=== PATIENT | male | born 1970 | race Caucasian/White ===

== ENCOUNTER 2019-03-25 07:20 | Day surgery (SDC) | payer SELFPAY, OTHER ==
[2019-03-22 15:43] LABS: Absolute Lymphocyte Count 1.91 X10^3/uL (0.83-4.51); Absolute Neutrophil Count 4.3 X10^3/uL (2.0-7.7); Basophil# 0.08 X10^3/uL; Basophil% 1.1 % (0-1); Eosinophil# 0.31 X10^3/uL; Eosinophils% 4.3 % (0-5); Hematocrit 42.9 % (40-54); Hemoglobin 14.3 g/dL (13.0-16.5); Lymphocyte # 1.91 X10^3/ul (4.0); Lymphocyte % 26.5 % (19-41); Mean Corp Hgb Conc 33.3 g/dL (32-36); Mean Corpuscular Hgb 31.5 pg (27.0-32.0); Mean Corpuscular Volume 94.5 fL (80-94); Mean Platelet Vol. 10.1 fl (6.2-12.0); Monocyte# 0.64 X10^3/uL; Monocyte% 8.9 % (0-10); NRBC Flagged by Analyzer 0 % (0-5); Neutrophil # 4.26 X10^3/uL (2.7-7.7); Neutrophil % 59.1 % (47-70); Platelet Count 322 K/mm3 (150-450); RBC Distribution Width CV 11.6 % (11.6-14.6); RBC Distribution Width SD 40.2 fl (35.1-43.9); Red Blood Count 4.54 M/mm3 (4.6-6.2); White Blood Count 7.2 K/mm3 (4.4-11.0)
[2019-03-22 15:53] LABS: Prothrombin Time (Protime)PT. 13.4 SECONDS (11.7-14.9)
[2019-03-22 15:54] LABS: Partial Thromboplast Time 29.8 Seconds (24.1-36.2)
[2019-03-22 16:11] LABS: Anion Gap 5 (5-15); BUN 21 mg/dL (7-18); BUN/Creat Ratio 21.6 RATIO (10-20); Calcium,Total 9.3 mg/dL (8.5-10.1); Chloride 108 mmol/L (98-107); Creatinine, Serum 0.97 mg/dL (0.70-1.30); EST Glomerular Filtration Rate 87 mL/min (>60); Est Glom Filt Rate - Afr Amer 106 mL/min (>60); Glucose 95 mg/dL (74-106); Potassium 4.2 mmol/L (3.5-5.1); Sodium Level 142 mmol/L (136-145)
[2019-03-23 08:00] LABS: Thyroid Stim Hormone (TSH) 1.78 uIU/mL (0.358-3.74)
--- NOTE | 2019-03-25 07:30 | RAD_ITS ---
STUDY: X-RAY CHEST REASON FOR EXAM: Male, 48 years old. Preoperative for surgery TECHNIQUE: PA and lateral views of the chest. COMPARISON: None. FINDINGS: The lungs are clear and expanded. There is no demonstrated pleural abnormality. Normal size heart. Normal mediastinum and audelia. Normal visualized pulmonary arteries. Normal visualized aortic arch and descending thoracic aorta. Normal visualized thoracic spine. Normal visualized ribs, clavicles, and shoulders. There is no demonstrated abnormality of the visualized soft tissue structures of the upper abdomen. RAD/Chest PA and Lateral IMPRESSION: No acute cardiopulmonary process. Electronically Signed: Akira Ceja MD ([place]) at 7:53 EST , Service support ,
--- NOTE | 2019-03-25 07:32 | EKG12_ITS ---
Test Reason : PREOP Blood Pressure : / mmHG Vent. Rate : 069 BPM Atrial Rate : 069 BPM P-R Int : 182 ms QRS Dur : 110 ms QT Int : 394 ms P-R-T Axes : 016 -41 -10 degrees QTc Int : 422 ms Poor data quality, interpretation may be adversely affected Normal sinus rhythm Left axis deviation Incomplete left bundle branch block Nonspecific T wave abnormality Abnormal ECG Confirmed by RALF JOHNSON, MILAN ([id number]), clinical editor NICK GASCA ([id number]) on 03/31/2019 1:29:53 PM Referred By: Kofi Cisneros Confirmed By:MILAN ARAMBULA MD
[2019-03-25 08:10] VITALS: BP 110/72; PULSE 70; RESP 14; TEMP 36.8; O2SAT 97; BMI 27.8
[2019-03-25] MEDS: Lactated Ringers 1,000 ML 100 ML IV (08:30)
--- NOTE | 2019-03-25 09:15 | RAD_ITS ---
STUDY: X-RAY - RIGHT CALCANEUS REASON FOR EXAM: Male, 48 years old. Calcaneal fracture, fall out of tree one week ago, fluoroscopic guidance for surgery TECHNIQUE: Dose area product: 3.58 mGycm2 COMPARISON: None. FINDINGS: On initial lateral views, there is a small bony density along the distal, plantar surface of the calcaneus likely correlated patient''s known fracture. There is subsequent resection of this bony fragment on later images. Gross radiographic alignment noted. Expected soft tissue air related to surgery. RAD/Calcaneus min 2 Views IMPRESSION: Fluoroscopic guidance for orthopedic surgery of the calcaneus. Electronically Signed: Akira Ceja MD ([place]) at 11:06 EST , Service support ,
[2019-03-25] MEDS: Cefazolin 2 GM in 0.9% Normal Saline 100 ML IV (09:19)
[2019-03-25 11:17] VITALS: BP 110/72; BP 91/69; PULSE 60; RESP 16; TEMP 36.2; O2SAT 99
--- NOTE | 2019-03-25 11:26 | PCM.DC.ORTHO ---
Discharge Diet: No Restrictions Discharge Activity: May Not Drive, May not drive while taking narcotic pain medications., May Not Shower, Use Walker, Use Crutches Weight Bearing Status: No weight bearing Keep extremity elevated above heart level: Right Leg Call your doctor if your incision/area has: Continuous Slow Oozing, Sudden Increased Bleeding, Increased Pain/ Swelling Call your doctor if you observe: Fever of 101 or Higher, Coldness, Increased Pain, Shortness of breath, Dizziness, Fainting spells, Chest pain, Increased palpitations (irregular heartbeat), Calf discomfort, Uncontrolled pain Suture Line Care: Avoid Pulling/Pushing Cleanse incision/area with: Keep Dressing Clean & Dry Additional Dressing/Incision Instructions:: Keep dressing to right foot and ankle clean, dry, intact. Do not get dressing wet. Do not shower or some submerge in tubs. Sponge bath if necessary but keep the dressing clean and dry. Elevate right lower extremity above level of heart as much as possible until follow-up appointment. Ice behind right knee 20 minutes on 20 minutes off every hour while awake until follow-up appointment. Take medications as prescribed. No walking/standing on the right foot. Use crutches for assistance. Allergies/Adverse Reactions: Allergies No Known Allergies Allergy (Verified 03/24/19 09:10) Medications to take at Discharge No Known/Unobtainable [No Known Home Medications] 10/10/14 Orders to be completed after discharge: Chest PA and Lateral [RAD] Time Frame: 03/25/19, Location: None Selected Primary Care Physician: Brendan Granado DO [Primary Care Provider] - Test Results: Test results from this visit will be discussed in further detail at your follow-up appointment, if applicable. Please Follow Up With: Kofi Cisneros DPM When: In [place] Office on 03/31
--- NOTE | 2019-03-25 11:29 | OP.PCM_ITS ---
Problem List (1) Closed right calcaneal fracture Status: Acute Qualifiers: Encounter type: initial encounter Calcaneus location: body Fracture alignment: displaced Qualified Code(s): S92.011A - Displaced fracture of body of right calcaneus, initial encounter for closed fracture Report of Operation Date of Procedure: 03/25/19 Pre-Operative Diagnosis: Displaced right calcaneal fracture at the level of the calcaneocuboid joint. Post-Operative Diagnosis: Same as preoperative Surgery/Procedure Performed:: Excision of a avulsed calcaneal fracture right calcaneus Description of Surgical Findings:: Consistent with diagnosis. Avulsed calcaneal fracture was comminuted and it was determined that internal fixation would further the comminution and not reduce it properly. He was then determined this time that removal of the fragment would aid in the patient's recovery and lead to a better outcome than internal fixation. loading unit operator crimping: Monica Banda Type of Anesthesia:: Spinal/Supplemental - Popliteal block to the right lower extremity Anesthesiologist: Cody Reeves Special Medications: 2 g Ancef given preoperatively Specimen's removed: None Drains: None Estimated Blood Loss (mL): 25mL Description of Procedure: Pathology: None Anesthesia: Dr. Reeves with a spinal and supplemental in a popliteal block to the right lower extremity giving postoperatively Hemostasis: Pneumatic thigh tourniquet placed at the level of the right thigh at 300 mmHg for 71 minutes Materials: 2-0 Vicryl, 3-0 Monocryl, 3-0 nylon Injectables: none Complications: none Condition: stable Indications: Mr. Barros is a 48-year-old male with no significant past medical history who suffered a fall from a tree stand on March 14. Patient states that as he was getting to his tree stand, one of the steps broke and he fell approximately 18 feet. Patient presented to the emergency department for further evaluation. At that time radiographs and CT scan were performed. CT scan showed a displaced comminuted fracture at the inferior portion of the calcaneus articulating with the calcaneocuboid joint. Patient was then splinted and sent for follow-up. Patient followed up with me in the office on March 17. At that time the CT scan and the radiographs were reviewed with the patient. Due to the displacement of the fracture and its articulation within the calcaneocuboid joint, I discussed with the patient surgical intervention to reduce the deformity. I also discussed conservative therapy including nonweightbearing and a below the knee cast for period of up to 12 weeks. The risks, benefits, possible outcomes, possible complications of the procedure and conservative therapy were discussed with the patient, included but not limited to infection, delayed or nonhealing, DVT, loss of limb, loss of life. Patient stated that he was very active in his lifestyle and wanted to return to activities quicker. Furthermore patient wanted to delay the onset of arthritis. At that time patient was agreeable to surgical intervention. Due to the swelling in his right lower extremity, had the patient follow-up with me on March 24 for an edema check. At that time edema was noted to be significantly reduced and was determined that surgical intervention would proceed on March 25. Operative report: Before the patient was brought to the operating room, all the risks, benefits, possible outcomes, possible complications of the procedure discussed with the patient. All the patient's questions were answered to his satisfaction and all of his concerns were addressed. No guarantees were made as to the outcome of the procedure. Patient understood all aspects of the procedure and consent was then signed with the patient. Patient was then brought to the operating room and placed on the operating table in supine position. At that time, spinal anesthesia was administered by the anesthesiologist. Patient was then placed in a comfortable position and in a supine position. At that time IV sedation was then given to the patient to make the patient comfortable. Next a well-padded pneumatic thigh tourniquet was placed to the level of the right thigh. The right foot, ankle, leg were then scrubbed, prepped, draped in the usual sterile manner. At this time radiographic evaluation was used to determine the level of the calcaneocuboid joint. This was then marked on the patient. Furthermore the inferior and superior borders of the calcaneus were marked and confirmed on radiographic evaluation. Due to the level of the relaxed skin tension lines, it was be determined that an incision will be made starting on the dorsal distal aspect of the calcaneocuboid joint extending inferiorly and posteriorly. At that time the right foot was elevated and exsanguinated Via Esmarch and inflated with a MAC 5 tourniquet was performed to 300 mmHg. Attention was then directed to the lateral aspect of the calcaneal cuboid joint of the right foot. At this time an incision was made with a #15 blade starting on the most dorsal aspect of the calcaneocuboid joint extending inferiorly and posteriorly to the inferior aspect of the calcaneocuboid joint. This incision was deepened utilizing sharp and blunt dissection. Care was taken to retract all vital neural and vascular structures. All bleeders were cauterized and ligated as necessary. At this time the sural nerve was identified and retracted and protected. Next an incision was made in a longitudinal fashion along the peroneal tendon sheaths. At this time the peroneal tendon sheaths were then retracted inferiorly, thus exposing the calcaneocuboid joint and the fracture of the operative site. Visual inspection was then performed of the fracture of the calcaneus. The fracture was noted to be comminuted. Furthermore, the fracture was noted to be contained within the calcaneocuboid joint. Due to the level of this fracture and the comminution noted, it was determined that a compression screw would be difficult to achieve. Furthermore, I was worried that a compression screw would further comminute the fracture. After this was determined, I also believe that placing a plate on the lateral aspect of the calcaneus to hold this fracture and the position would be difficult. I believe that this would have increased to the recovery time of the patient and could have led to less optimal outcome. It was undetermined this time that excision of the avulsion fragment would greatly benefit the patient at this time. The multiple comminuted avulsed fractures were then excised and passed from the operative site. At this time the surgical site was irrigated with copious amounts of normal sterile saline. Next a rongeur along with a bur were then used to smooth the remaining calcaneus. Inspection was then performed of the calcaneocuboid joint and the remaining aspects appeared intact. The surgical site was then irrigated with copious amounts normal sterile saline. Radiographic evaluation was then performed and no remaining avulsed fragments were contained within the surgical site. At this time the periosteal and capsular structures were reapproximated and coapted utilizing 2-0 Vicryl. The tendon sheath of the peroneal tendons was reapproximated and coapted utilizing 2-0 Vicryl. The subcutaneous tissue was reapproximated and coapted utilizing 3-0 Monocryl. The skin was reapproximated coapted using 3-0 nylon in a simple interrupted horizontal mattress fashion. At this time the tourniquet was then released and a prompt hyperemic response noted to the entirety of the right lower extremity. Surgical site was then dressed with Betadine soaked gauze, and a dry sterile dressing consisting of 4 x 4 gauze wrapped with Kerlix. The right foot and ankle were then wrapped with Maxwell bandage. At this time a stockinette was placed over the right lower extremity. Cast padding was wrapped in the metatarsal heads extending proximally to the level just distal to the tibial tuberosity. A posterior splint was fashioned to the right lower extremity and was adhered to the right lower extremity using Maxwell bandages. Care was taken to make sure that the foot was held in a dorsiflexed and everted position to aid in the decrease tension on the surgical site as a posterior splint dried. The patient tolerated the anesthesia and procedure well and was transported to the PACU with vital signs stable and neurovascular status intact to the right lower extremity. At that time the anesthesiologist administered a popliteal block to the right lower extremity. The patient tolerated this procedure well. After period of postoperative monitoring, the patient will be discharged home with written and oral instructions of wound care and follow-up. The surgical dental assistant, the nurse practitioner, was utilized throughout the entire procedure. She helped with patient positioning, holding of limb, holding of retractors. She helped with exposure throughout. She helped with wound closure, bandage application, and cast application. Without surgical dental assistant, the surgical time would have been increased. Surgical outcome could have been less than optimal. - Complications None - Admit VTE Documentation VTE Present on Admission: No
[2019-03-25 11:30] VITALS: BP 109/75; BP 110/72; PULSE 64; RESP 16; O2SAT 100
--- NOTE | 2019-03-25 11:35 | RAD_ITS ---
STUDY: X-RAY - RIGHT FOOT CLINICAL: Male, 48 years old. Status post calcaneal surgery TECHNIQUE: 3 view(s) of the foot. COMPARISON: None. FINDINGS: Splint material noted. Small amount of air adjacent to the anterior and plantar calcaneus correlates to the area of surgery on recent fluoroscopic images. Normal visualized subtalar, talonavicular, calcaneocuboid, tarsal and tarsometatarsal articulations. Normal metatarsi. Normal metatarsophalangeal joint of the great toe. Normal tibial and fibular sesamoid bones. Normal interphalangeal joint of the great toe. Normal phalanges of the great toe. Normal second through fifth metatarsophalangeal joints. Normal interphalangeal joints and phalanges of the lesser toes. No malalignment. RAD/Foot min 3 Views IMPRESSION: Operative changes of the anterior/plantar calcaneus. No malalignment. Electronically Signed: Akira Ceja MD ([place]) at 11:57 EST , Service support ,
[2019-03-25 11:45] VITALS: BP 109/79; BP 110/72; PULSE 62; RESP 16; O2SAT 100
[2019-03-25 12:00] VITALS: BP 103/76; BP 110/72; PULSE 64; RESP 16; TEMP 36.5; O2SAT 100
[2019-03-25 13:31] VITALS: BP 110/72
== END 2019-03-25 13:38 | disposition home or self-care (01) ==
LOC: SDC 07:21 → AC 07:21
PROVIDERS: Family Provider Family Medicine; PCP Family Medicine; Referring Provider Podiatrist Foot & Ankle Surgery; Visit Provider Podiatrist Foot & Ankle Surgery
PROC: (CPT 28300; principal; 2019-03-25 09:00)
DX: S92.011A Displaced fracture of body of right calcaneus, initial encounter for closed fracture (principal); S92.211A Displaced fracture of cuboid bone of right foot, initial encounter for closed fracture; S92.224A Nondisplaced fracture of lateral cuneiform of right foot, initial encounter for closed fracture; Z79.82 Long term (current) use of aspirin; Z79.891 Long term (current) use of opiate analgesic; W17.89XA Other fall from one level to another, initial encounter; Y93.89 Activity, other specified; Y92.89 Other specified places as the place of occurrence of the external cause; Y99.8 Other external cause status
CPT/HCPCS: 28300; 64450; 36415; 71046; 73630; 73650; 76000; 80048; 84443; 85025; 85610; 85730; 93005; J7120; J2405

== ENCOUNTER 2019-04-09 09:47 | Inpatient (IN) | payer OTHER, SELFPAY ==
[2019-04-09] VITALS (11 sets, daily range): BP systolic 90–126; BP diastolic 51–77; PULSE 72–82; RESP 16–18; TEMP 36.1–37.1; O2SAT 94–100; BMI 27.1; BMI 27.2
--- NOTE | 2019-04-09 10:08 | RAD_ITS ---
STUDY: X-RAY - RIGHT FOOT CLINICAL: Male, 48 years old. RECENT SURGERY, INFECTION TECHNIQUE: 3 view(s) of the foot. COMPARISON: 03/25/2019 FINDINGS: Normal talus, calcaneus, and tarsal bones. Normal visualized subtalar, talonavicular, calcaneocuboid, tarsal and tarsometatarsal articulations. Normal metatarsi. Normal metatarsophalangeal joint of the great toe. Normal tibial and fibular sesamoid bones. Normal interphalangeal joint of the great toe. Normal phalanges of the great toe. Normal second through fifth metatarsophalangeal joints. Normal interphalangeal joints and phalanges of the lesser toes. The soft tissue structures are unremarkable. RAD/Foot min 3 Views IMPRESSION: Normal x-ray examination of the foot. Electronically Signed: Kyle Bo MD at 10:44 EST Tel , Service support ,
[2019-04-09 10:39] LABS: Absolute Lymphocyte Count 2.28 X10^3/uL (0.83-4.51); Absolute Neutrophil Count 5.4 X10^3/uL (2.0-7.7); Basophil# 0.08 X10^3/uL; Basophil% 0.9 % (0-1); Eosinophil# 0.52 X10^3/uL; Eosinophils% 5.7 % (0-5); Hematocrit 38.3 % (40-54); Hemoglobin 12.5 g/dL (13.0-16.5); Lymphocyte # 2.28 X10^3/ul (4.0); Lymphocyte % 24.9 % (19-41); Mean Corp Hgb Conc 32.6 g/dL (32-36); Mean Corpuscular Hgb 31.4 pg (27.0-32.0); Mean Corpuscular Volume 96.2 fL (80-94); Mean Platelet Vol. 8.9 fl (6.2-12.0); Monocyte# 0.76 X10^3/uL; Monocyte% 8.3 % (0-10); NRBC Flagged by Analyzer 0 % (0-5); Neutrophil # 5.43 X10^3/uL (2.7-7.7); Neutrophil % 59.4 % (47-70); Platelet Count 441 K/mm3 (150-450); RBC Distribution Width CV 11.5 % (11.6-14.6); RBC Distribution Width SD 40.5 fl (35.1-43.9); Red Blood Count 3.98 M/mm3 (4.6-6.2); White Blood Count 9.1 K/mm3 (4.4-11.0)
[2019-04-09 10:56] LABS: ALB/GLOB Ratio 0.8 RATIO (0.9-2.4); AST(SGOT) 13 U/L (15-37); Alanine Aminotransfer ALT/SGPT 48 U/L (16-61); Albumin, Serum 3.6 g/dL (3.2-5.0); Alkaline Phosphatase 260 U/L (45-117); Anion Gap 5 (5-15); BUN 12 mg/dL (7-18); BUN/Creat Ratio 12.6 RATIO (10-20); Calcium,Total 9.1 mg/dL (8.5-10.1); Chloride 107 mmol/L (98-107); Creatinine, Serum 0.96 mg/dL (0.70-1.30); EST Glomerular Filtration Rate 89 mL/min (>60); Est Glom Filt Rate - Afr Amer 107 mL/min (>60); Estimated Creatinine Clearance 102.16 ml/min; Globulin 4.4 g/dL (2.2-4.2); Glucose 93 mg/dL (74-106); Potassium 4.3 mmol/L (3.5-5.1); Sodium Level 142 mmol/L (136-145)
--- NOTE | 2019-04-09 12:38 | PCM.HP.STD ---
Problem List (1) Postoperative infection Status: Acute Qualifiers: Encounter type: initial encounter Postoperative infection type: deep incisional surgical site Qualified Code(s): T81.42XA - Infection following a procedure, deep incisional surgical site, initial encounter (2) Cellulitis of right foot Status: Acute History of Present Illness Date of Admission: 04/09/19 Chief Complaint: Patient experiencing a postoperative infection of his right foot surgical site status post removal of avulsion fracture of right calcaneus on March 25, 2019. The patient is a 48 year old M with no significant past medical history who suffered a fall from a treehouse on March 14. Patient states that he was hunting at that time and fell out of his tree house. Patient felt immediate pain in his right foot and ankle. Patient went to the emergency department for further evaluation where radiographs and CT scan were taken. Patient was then sent for follow-up. After discussing with the patient, and reviewing the CT scan, I recommended an open reduction with internal fixation of the right calcaneus. During surgical intervention, it was noted that the avulsion fractures were smaller than were noted on CT scan and the avulsion fractures were removed without the placement of internal fixation. Patient subsequently saw me in the office on March 31, for further care. Surgical site was clean, dry and intact with no signs of acute infection. Surgical dressing was changed and patient follow-up with me today in the office. Upon removal of the dressing, there is erythema and edema present. Furthermore purulent drainage was coming from the postoperative wound. To the significant infection, I recommend the patient be admitted to the hospital for IV antibiotics and an immediate incision and drainage by me. Patient is not experiencing fever, chills, nausea, vomiting, shortness of breath, chest pain. [] Past Medical History Allergies No Known Allergies Allergy (Verified 03/24/19 09:10) Home Medications: Ambulatory Orders Medication Instructions Recorded Aspirin [Aspirin, Baby] 81 mg PO DAILY 04/09/19 Surgical History: no surgical history Psychiatric History: No pertinent psych hx Lives: With Family Smoking Status: Never smoker Tobacco Use: Non-smoker Alcohol: None Drugs: None Review of Systems Constitutional: Denies: Chills, Fever, Night Sweats, Malaise, Weakness, Fatigue Eyes: Denies: Blurred vision, Cataracts, Conjunctivae Inflammation, Double vision, Drainage, Eyelid Inflammation, Pain, Redness HEENT: Denies: Difficulty Hearing, Difficulty Swallowing, Head Aches Cardiovascular: Denies: Chest Pain Respiratory: Denies: Cough, Hemoptysis, Shortness of Breath Gastrointestinal: Denies: Abdominal Pain, Constipation, Diarrhea Genitourinary: Denies: Dysuria, Frequency, Hematuria Musculoskeletal: Reports: Foot Pain - right foot pain in area of surgical site Skin: Denies: Dryness Neurological: Denies: Balance problems, Blurred vision Psychiatric: Denies: Anxiety, Depression Endocrine: Denies: Change in Body Habitus, Heat/ Cold Intolerance, Polydipsia, Polyuria VTE Information - Inpt Only VTE Present on Admission: No Patient Problems: Active and Suspected Problems Postoperative infection (Acute) Cellulitis of right foot (Acute) Subjective: Patient denies any acute complaints at this time is overall feeling okay. Patient admits to pain in foot. Objective: Right lower extremity exam: Vascular assessment reveals a palpable dorsalis pedis and posterior tibial pulse, CFT <3 sec x5, Temperature gradient is increased starting at the level of the ankle extending distally to the digits Neuro: gross and protective sensation intact to the right lower extremity Musculoskeletal: Muscle strength is deferred Dermatological: Surgical site on lateral aspect the right foot reveals significant erythema and edema with positive purulent drainage. Surgical site is not well coapted. Positive pain upon palpation. Positive foul odor present. - Physical Exam Vitals/I&O's: Vital Signs Temp Pulse Resp BP Pulse Ox 98.0 F 75 18 113/76 98 04/09/19 12:05 04/09/19 12:05 04/09/19 12:05 04/09/19 12:05 04/09/19 12:05 Oxygen Delivery Method Room Air Weight: 90.9 kg Body Mass Index (BMI) 27.1 General: Alert, Oriented x3, Cooperative, No apparent distress, Well developed, Well nourished HEENT: Atraumatic, PERRLA, EOMI, Normocephalic Oral: Moist Mucosa Neck: Supple, No JVD Lungs: Clear to auscultation, Normal air movement, No rhonchi, No wheeze, No rales Cardiovascular: Regular rate, Regular Rhythm, Normal S1, Normal S2 Abdomen: Bowel Sounds Present, Soft, Non Tender, Non-Distended Extremities: No clubbing, No cyanosis Musculoskeletal: No Muscle Wasting Lymphatic: No Cervical, Supraclavicular, or Inguinal Adenopathy Neurological: Sensory exam intact to light touch and pain Psych/Mental Status: Normal Affect, Appropriate, Alert and oriented to time, place, person, mood and affect Laboratory Results 04/09/19 10:25: WBC 9.1, RBC 3.98 L, Hgb 12.5 L, Hct 38.3 L, MCV 96.2 H, MCH 31.4, MCHC 32.6, RDW Std Deviation 40.5, RDW Coeff of Dona 11.5 L, Plt Count 441, MPV 8.9, Immature Gran % (Auto) 0.800, Neut % (Auto) 59.4, Lymph % (Auto) 24.9, [place] % (Auto) 8.3, Eos % (Auto) 5.7 H, Baso % (Auto) 0.9, Absolute Neuts (auto) 5.4, Absolute Lymphs (auto) 2.28, Nucleated RBC % 0 04/09/19 10:25: Sodium 142, Potassium 4.3, Chloride 107, Carbon Dioxide 30.0, Anion Gap 5, BUN 12, Creatinine 0.96, Estim Creat Clear Calc 102.16, Est GFR (MDRD) Af Amer 107, Est GFR (MDRD) Non-Af 89, BUN/Creatinine Ratio 12.6, Glucose 93, Calcium 9.1, Total Bilirubin 1.00, AST 13 L, ALT 48, Alkaline Phosphatase 260 H, Total Protein 8.0, Albumin 3.6, Globulin 4.4 H, Albumin/Globulin Ratio 0.8 L Current Medications Acetaminophen (Tylenol) 650 mg PO Q4H PRN PRN PRN Reason: HEADACHE/FEVER (T>100F) Hydrocodone Bitart/Acetaminophen ([place] 5mg-325mg) 1 tablet PO Q4H PRN PRN PRN Reason: Pain Score 1-10/10 Docusate Sodium (Colace) 200 mg PO BID PRN PRN PRN Reason: Constipation Enoxaparin Sodium (Lovenox) 40 mg SC DAILY@0600 ALEKSANDR Hydromorphone HCl (Dilaudid Inj) 0.5 mg IV Q2H PRN PRN PRN Reason: Pain Score 6-10/10 Sodium Chloride () 250 mls @ 15 mls/hr IV .[id number] PRN PRN Reason: Saline Flush Piperacillin Sod/Tazobactam (Sod 3.375 gm/ Sodium Chloride) 50 mls @ 12.5 mls/hr IV Q8 ALEKSANDR Ondansetron HCl (Zofran) 4 mg IV Q6H PRN PRN PRN Reason: NAUSEA/VOMITING Sodium Chloride () 10 - 40 ml IV UD PRN PRN Reason: SALINE FLUSH Vancomycin HCl (Vancomycin Hcl) 1 mg IV Q12 COUNTS INCLUDE 234 BEDS AT THE [facility] Assessment/Plan All Active Problems Closed right calcaneal fracture (Acute) Postoperative infection (Acute) Cellulitis of right foot (Acute) Is a 48-year-old male with no significant past medical history who was admitted to [facility] today by me for postoperative infection of his right foot. At this time, I discussed with the patient the severity of the infection is present. I believe the patient would benefit from incision and drainage with a washout of his right foot wound. Patient is agreeable to the surgical intervention. Discussed with the patient that we will perform the surgery today to washout the wound. At that time, I will take wound cultures and possibly place a wound VAC on to the area. I will consult the hospitalist for further medical management. I appreciate the hospitalist attention and help with this matter. I will consult Dr. Posadas from infectious disease for further IV and oral antibiotic management. I appreciate the infectious disease consultation and help with this matter. The patient will likely need several days of IV antibiotics and possible further washouts and debridements pending clinical improvement. I will continue to update accordingly. I appreciate all help in managing and assisting this patient. Code Visit Inpatient E&M: [id number] Init Hosp L2
--- NOTE | 2019-04-09 12:42 | PCM.RX.CS ---
Consult Pharmacy has been consulted to manage selected antiobiotic: Vancomycin Type of Consult: New start Labs: Sodium 142 mmol/L (136-145) 04/09/19 10:25 Potassium 4.3 mmol/L (3.5-5.1) 04/09/19 10:25 Chloride 107 mmol/L (98-107) 04/09/19 10:25 Carbon Dioxide 30.0 mmol/L (21.0-32.0) 04/09/19 10:25 Anion Gap 5 (5-15) 04/09/19 10:25 BUN 12 mg/dL (7-18) 04/09/19 10:25 Creatinine 0.96 mg/dL (0.70-1.30) 04/09/19 10:25 Est GFR (MDRD) Af Amer 107 mL/min (>60) 04/09/19 10:25 Est GFR (MDRD) Non-Af 89 mL/min (>60) 04/09/19 10:25 BUN/Creatinine Ratio 12.6 RATIO (10-20) 04/09/19 10:25 Glucose 93 mg/dL (74-106) 04/09/19 10:25 Weight used for dosin kg Estimated Creatinine Clearance: > 100 Goal Trough: 15-20 mcg/mL Pharmacy Plan for Drug Dosing: Vancomycin 2000mg IV x1 followed by 1000mg IV q8h and trough per policy. Pharmacy Service will continue to monitor and adjust dosing as required. Follow-Up Labs: Trough Vancomycin - 04/10 prior to 4th dose
--- NOTE | 2019-04-09 12:43 | NURSING ---
called report to Marisel in [facility] at this time
[2019-04-09] MEDS: Bupivacaine Mpf 0.5% 30 ML VIAL (13:54)
--- NOTE | 2019-04-09 13:56 | PN.ID_ITS ---
Patient Problems: Active and Suspected Problems Postoperative infection (Acute) Cellulitis of right foot (Acute) - Physical Exam Vitals/I&O's: Vital Signs Temp Pulse Resp BP Pulse Ox 98.0 F 75 18 113/76 98 04/09/19 12:05 04/09/19 12:05 04/09/19 12:05 04/09/19 12:05 04/09/19 12:05 Oxygen Delivery Method Room Air Weight: 90.9 kg Body Mass Index (BMI) 27.1 Laboratory Results 04/09/19 10:25: WBC 9.1, RBC 3.98 L, Hgb 12.5 L, Hct 38.3 L, MCV 96.2 H, MCH 31.4, MCHC 32.6, RDW Std Deviation 40.5, RDW Coeff of Dona 11.5 L, Plt Count 441, MPV 8.9, Immature Gran % (Auto) 0.800, Neut % (Auto) 59.4, Lymph % (Auto) 24.9, [place] % (Auto) 8.3, Eos % (Auto) 5.7 H, Baso % (Auto) 0.9, Absolute Neuts (auto) 5.4, Absolute Lymphs (auto) 2.28, Nucleated RBC % 0 04/09/19 10:25: Sodium 142, Potassium 4.3, Chloride 107, Carbon Dioxide 30.0, Anion Gap 5, BUN 12, Creatinine 0.96, Estim Creat Clear Calc 102.16, Est GFR (MDRD) Af Amer 107, Est GFR (MDRD) Non-Af 89, BUN/Creatinine Ratio 12.6, Glucose 93, Calcium 9.1, Total Bilirubin 1.00, AST 13 L, ALT 48, Alkaline Phosphatase 260 H, Total Protein 8.0, Albumin 3.6, Globulin 4.4 H, Albumin/Globulin Ratio 0.8 L Current Medications Acetaminophen (Tylenol) 650 mg PO Q4H PRN PRN PRN Reason: HEADACHE/FEVER (T>100F) Hydrocodone Bitart/Acetaminophen ([place] 5mg-325mg) 1 tablet PO Q4H PRN PRN PRN Reason: Pain Score 1-10/10 Docusate Sodium (Colace) 200 mg PO BID PRN PRN PRN Reason: Constipation Enoxaparin Sodium (Lovenox) 40 mg SC DAILY@0600 [facility] Hydromorphone HCl (Dilaudid Inj) 0.5 mg IV Q2H PRN PRN PRN Reason: Pain Score 6-10/10 Sodium Chloride () 250 mls @ 15 mls/hr IV .[id number] PRN PRN Reason: Saline Flush Piperacillin Sod/Tazobactam (Sod 3.375 gm/ Sodium Chloride) 50 mls @ 12.5 mls/hr IV Q8 ALEKSANDR Vancomycin HCl 2,000 mg/ (Sodium Chloride) 540 mls @ 250 mls/hr IV X1 ONE Stop: 04/09/19 15:39 Vancomycin IV Pharmacy to Dose (1 ea/ Sodium Chloride) 500 mls @ 250 mls/hr IV X1 PRN; Protocol PRN Reason: Rx to Dose Ondansetron HCl (Zofran) 4 mg IV Q6H PRN PRN PRN Reason: NAUSEA/VOMITING Sodium Chloride () 10 - 40 ml IV UD PRN PRN Reason: SALINE FLUSH Medical Necessity - Tobacco Use Smoking Status: Never smoker Tobacco Use: Non-smoker Route of nutrition/ use of supplements: [] Nutritional Intake: [] IV Site: [] Jensen Catheter: [] - Assessment/Plan Antibiotics: [] Assessment/Plan: [] Active and Suspected Problems Postoperative infection (Acute) Cellulitis of right foot (Acute) Pt gone to OR. D/w Dr. Demarco, agree with empiric vanc/zosyn, will follow results of surgical cxs. Thank you, will do full consult 04/12.
--- NOTE | 2019-04-09 14:39 | OP.PCM_ITS ---
Problem List (1) Postoperative infection Status: Acute Qualifiers: Encounter type: initial encounter Postoperative infection type: deep incisional surgical site Qualified Code(s): T81.42XA - Infection following a procedure, deep incisional surgical site, initial encounter (2) Cellulitis of right foot Status: Acute Report of Operation Date of Procedure: 04/09/19 Pre-Operative Diagnosis: 1..Acute postoperative infection right foot. 2. Right foot cellulitis. 3. Right foot abscess Post-Operative Diagnosis: Same as preoperative Surgery/Procedure Performed:: 1. Right foot incision and drainage of abscess. #2 right foot washout of wound. #3 right foot application of wound VAC Description of Surgical Findings:: Consistent with diagnosis. Approximately 10 cc of purulent drainage was evacuated. After washout, no further purulent drainage evacuated. Underlying tendons and soft tissue were intact with no signs of necrosis. Underlying bone was hard, healthy, pearly white with no signs of active osteonecrosis. Type of Anesthesia:: Local MAC Anesthesiologist: Cody Reeves Special Medications: 1 g vancomycin, 4.5 g Zosyn Specimen's removed: 1. Wound culture of right foot wound for aerobic, anaerobic, acid-fast and fungal organisms. #2 right foot wound culture PCR Drains: Wound VAC placed on right foot at 125 mmHg with adequate seal and suction Estimated Blood Loss (mL): 20 mL Description of Procedure: Anesthesia: IV sedation with a local block given to the right lower extremity consisting of 20 cc of 0.52 Marcaine plain distributed a ankle block fashion Hemostasis anatomic dissection Estimated blood loss: Less than 20 mL Materials: Wound VAC with associated black foam and tape Injectables: None Complications: None Condition: Stable Indications: Mr. Barros is a 48-year-old male with no significant past medical history who suffered a fall out of his tree house the beginning of March. Patient was brought to the emergency department where x-rays and CT scan were taken showing a calcaneus fracture of his right calcaneus. I saw the patient in the office and plan for an open reduction with internal fixation. Upon surgical intervention March 25, 2019, the fracture was not as significant as noted on preoperative imaging, and the avulsion fracture was removed. Patient was having uneventful postoperative course until seen in the office today. Upon removing of the dressing, purulent drainage was noted to be coming from the wound along with significant erythema and edema. I discussed with the patient that due to the significant infection that was present this time, he would benefit benefit from an operative room incision and drainage with washout. Patient was agreeable and patient was sent to [facility] for admission, surgical intervention, and IV antibiotics. Operative report: Before the patient brought to the operating room, the risks, benefits, possible outcomes, possible complications of the procedure discussed with the patient. All the patient questions were answered to his satisfaction and all of his con cerns were addressed. No guarantees were made as to the outcome of the procedure. The patient understood all aspects of the procedure and consent was then signed by the patient. Patient was then brought to the operating room and placed on the operating table in supine position. After timeout, under IV sedation, 20 cc of 0.5 the Marcaine plain was distributed ankle block fashion to the right ankle. Next, the sutures for the skin that were contained within the surgical site were removed in their entirety. The right foot, ankle, leg were then scrubbed, prepped, draped in the usual sterile manner. Attention was then directed to the surgical wound located on the lateral aspect of the right foot. At this time approximately 10 cc of purulent drainage was evacuated. Any necrotic tissue contained within the skin and subcutaneous tissue was sharply debrided out and passed from the operative site. Visual inspection was then performed of the subcutaneous tissues, tendinous and ligamentous structures, and bone. The subcutaneous tissues and the tendons and ligaments appeared healthy with no signs of necrosis. The underlying bone appeared hard, healthy, and pearly white with no signs of osteonecrosis. At this time the surgical site was irrigated with 6 L of normal sterile saline. The right foot and ankle were then scrubbed, prepped, draped again. At this time this the wound was then measured to be 6 cm x 0.7 cm x 1.5 cm. At this time wound culture was taken for aerobic, anaerobic, acid-fast, fungal organisms. Wound culture was also taken for PCR. At this time black foam was cut to appropriate size and was adhered to the wound utilizing the VAC tape. A dorsal foam bridge was placed over the dorsal aspect of the foot with the black foam. Care was taken to make sure the skin was well protected. The wound VAC was then applied and adequate seal and suction was noted at 125 mmHg low continuous. At this time the right foot and ankle were then dressed with a dry sterile dressing consisting of 4 x 4 gauze wrapped with Kerlix. The right foot and ankle were then wrapped with an Maxwell bandage. Neurovascular status was assessed at the end of the procedure and deemed intact to the right lower extremity. The patient tolerated anesthesia procedure well and was transported to the PACU with vital signs stable and neurovascular status intact to the right lower extremity. After period of postoperative monitoring, patient will be transferred back to the general medical floor. At this time patient will continue IV antibiotics. A consult was placed to the hospitalist and infectious disease for further antibiotic management. Patient may need further washouts and surgical intervention pending clinical improvement. Will continue to monitor closely and update accordingly. Grafts/Implants Used: Wound VAC with black foam and associated tape - Admit VTE Documentation VTE Present on Admission: No
[2019-04-09 16:11] LABS: M R Staph aureus DNA By PCR Negative (Negative); Probe Check PASS; Specimen Processing Control PASS; Staph aureus DNA By PCR POSITIVE (Negative)
--- NOTE | 2019-04-09 17:20 | PN_ITS ---
Patient Problems: Active and Suspected Problems Postoperative infection (Acute) Cellulitis of right foot (Acute) Subjective: Patient was seen and examined today, he underwent surgery on his right heel today for debridement of an abscessed area. Patient denies any chronic medical problems, he has no complaints at this time to this examiner of shortness of breath or chest discomfort. Patient's PCR done on his wound today was positive for staph but negative for MRSA. I discussed this with infectious diseases by phone, infectious diseases did not want to change the patient's antibiotic coverage at this time. - Physical Exam Vitals/I&O's: Vital Signs Temp Pulse Resp BP Pulse Ox 97.8 F 78 18 100/51 L 100 04/09/19 15:40 04/09/19 15:40 04/09/19 15:40 04/09/19 15:40 04/09/19 15:40 Oxygen Delivery Method Room Air Weight: 90.9 kg Body Mass Index (BMI) 27.1 Intake and Output for Last 24 Hours 04/07/19 04/08/19 04/09/19 23:59 23:59 23:59 Intake Total 590 / 590 Balance 590 / 590 General: Alert, Oriented x3, Cooperative, No apparent distress, Well developed, Well nourished HEENT: Atraumatic, PERRLA, EOMI, Normocephalic Oral: Moist Mucosa Neck: Supple, No JVD, Trachea Midline, Thyroid Normal Size and Texture Lungs: Clear to auscultation, Normal air movement, No rhonchi, No wheeze, No rales Cardiovascular: Regular rate, Regular Rhythm, Normal S1, Normal S2, No murmurs, PMI Normal, No rub noted Abdomen: Bowel Sounds Present, Soft, Non Tender, Non-Distended Extremities: No clubbing, No cyanosis, Capillary Refill Less than 3 Seconds Skin: No rashes, No breakdown Neurological: Cranial nerves II-XII grossly intact, Neuro grossly intact, Sensory exam intact to light touch and pain Psych/Mental Status: Normal Affect, Appropriate, Alert and oriented to time, place, person, mood and affect Laboratory Results 04/09/19 10:25: WBC 9.1, RBC 3.98 L, Hgb 12.5 L, Hct 38.3 L, MCV 96.2 H, MCH 31.4, MCHC 32.6, RDW Std Deviation 40.5, RDW Coeff of Dona 11.5 L, Plt Count 441, MPV 8.9, Immature Gran % (Auto) 0.800, Neut % (Auto) 59.4, Lymph % (Auto) 24.9, [place] % (Auto) 8.3, Eos % (Auto) 5.7 H, Baso % (Auto) 0.9, Absolute Neuts (auto) 5.4, Absolute Lymphs (auto) 2.28, Nucleated RBC % 0 04/09/19 10:25: Sodium 142, Potassium 4.3, Chloride 107, Carbon Dioxide 30.0, Anion Gap 5, BUN 12, Creatinine 0.96, Estim Creat Clear Calc 102.16, Est GFR (MDRD) Af Amer 107, Est GFR (MDRD) Non-Af 89, BUN/Creatinine Ratio 12.6, Glucose 93, Calcium 9.1, Total Bilirubin 1.00, AST 13 L, ALT 48, Alkaline Phosphatase 260 H, Total Protein 8.0, Albumin 3.6, Globulin 4.4 H, Albumin/Globulin Ratio 0.8 L 04/09/19 : S.aureus Protein A PCR POSITIVE H, MRSA (PCR) Negative Current Medications Acetaminophen (Tylenol) 650 mg PO Q4H PRN PRN PRN Reason: HEADACHE/FEVER (T>100F) Hydrocodone Bitart/Acetaminophen ([place] 5mg-325mg) 1 tablet PO Q4H PRN PRN PRN Reason: Pain Score 1-10/10 Docusate Sodium (Colace) 200 mg PO BID PRN PRN PRN Reason: Constipation Enoxaparin Sodium (Lovenox) 40 mg SC DAILY@0600 [facility] Hydromorphone HCl (Dilaudid Inj) 0.5 mg IV Q2H PRN PRN PRN Reason: Pain Score 6-10/10 Sodium Chloride () 250 mls @ 15 mls/hr IV .[id number] PRN PRN Reason: Saline Flush Piperacillin Sod/Tazobactam (Sod 3.375 gm/ Sodium Chloride) 50 mls @ 12.5 mls/hr IV Q8 [facility] Last Infusion: 04/09/19 13:49 Dose: Infused Documented by: Vancomycin IV Pharmacy to Dose (1 ea/ Sodium Chloride) 500 mls @ 250 mls/hr IV X1 PRN; Protocol PRN Reason: Rx to Dose Vancomycin HCl (Vancomycin) 1,000 mg in 200 mls @ 200 mls/hr IV Q8H ALEKSANDR Ondansetron HCl (Zofran) 4 mg IV Q6H PRN PRN PRN Reason: NAUSEA/VOMITING Sodium Chloride () 10 - 40 ml IV UD PRN PRN Reason: SALINE FLUSH Medical Necessity - Tobacco Use Smoking Status: Never smoker Tobacco Use: Non-smoker Assessment/Plan All Active Problems Closed right calcaneal fracture (Acute) Postoperative infection (Acute) Cellulitis of right foot (Acute) #1 cellulitis and abscess formation right heel/foot-probably secondary to methicillin sensitive staph aureus-continue present coverage with vancomycin per infectious diseases, patient will need to be seen by PT and OT, patient will need a wound VAC according to documentation by podiatry #2 status post fracture of right calcaneus #3 elevated alkaline phosphatase-etiology unclear, this will need to be rechecked in the near future Code Visit Inpatient E&M: 72016 Subs Hosp L2
--- NOTE | 2019-04-09 18:23 | NURSING ---
[employer] called in regards to wound vac placement. order number [id number].
[2019-04-09] MEDS: HYDROcodone Bitartrate/Apap 5/325 Tablet PO ×2 (18:30→22:30)
[2019-04-09] MEDS: Vancomycin IV 1,000 MG/200 ML BAG 200 MG IV (21:20)
[2019-04-10] MEDS: Acetaminophen 325 MG Tablet 650 MG PO (00:23)
[2019-04-10 03:03] VITALS: BP 107/65; PULSE 75; RESP 16; TEMP 36.9; O2SAT 95
[2019-04-10] MEDS: HYDROcodone Bitartrate/Apap 5/325 Tablet PO ×5 (03:09→22:40)
[2019-04-10] MEDS: Vancomycin IV 1,000 MG/200 ML BAG 200 MG IV ×3 (05:00→21:28)
[2019-04-10] MEDS: Enoxaparin 40 MG/0.4 ML Syringe SC (05:05)
[2019-04-10 08:03] VITALS: BP 121/83; PULSE 66; RESP 18; TEMP 37; O2SAT 99
--- NOTE | 2019-04-10 10:25 | CM.UR ---
Met briefly with patient face to face along with several family members. States when discharged after initial surgery he was able to function around the home with assistance. Denies any needs for assistance. Confirmed his pharmacy and PCP per his demographics. Discussed wound vac. patient did not believe that he was going home with wound vac. Explained usually if applied they do plan on sending home with it. explained that it gets changed 3x per week and we can send nurse to home to change it. Patient states he has no electricity so how are they going to keep it charged/running. Explained we can alert physician and see if there is alternatives. States he will talk to the foot doctor more when he comes in to day. Alerted BILL Andrademeteorologist in charge nurse to patient's concern. Tasneem Vidal RN, CCM.
--- NOTE | 2019-04-10 12:50 | PCM.PN.ORT ---
Patient Problems: Active and Suspected Problems Postoperative infection (Acute) Cellulitis of right foot (Acute) Subjective: Patient seen at bedside resting comfortably. Patient admits to improved pain of his right foot. Patient states that overnight, he was experiencing increased pain but it is now controlled by the pain medications. Patient denies any other acute events overnight. Nursing staff does not report any acute events overnight. Patient denies fever, chills, nausea, vomiting, shortness of breath, chest pain. is present at bedside during entire encounter. Objective: Right lower extremity exam: Dressing is clean, dry, intact to the right lower extremity with no evidence of strikethrough noted. Wound VAC is working with adequate seal and suction noted at 125 mmHg low continuous. Less than 50 mL of sanguinous drainage present in the wound VAC. Capillary fill time is less than 3 seconds to all digits. Patient is able to move all digits freely without pain. Light sensation is intact to the digits of the right foot. - Physical Exam Vitals/I&O's: Vital Signs Temp Pulse Resp BP Pulse Ox 98.6 F 66 18 121/83 H 99 04/10/19 08:03 04/10/19 08:03 04/10/19 08:03 04/10/19 08:03 04/10/19 08:03 Oxygen Delivery Method Room Air Weight: 90.9 kg Body Mass Index (BMI) 27.1 Intake and Output for Last 24 Hours 04/08/19 04/09/19 04/10/19 23:59 23:59 23:59 Intake Total 1390 / 1890 1660.25 / 1660.25 Output Total 750 / 750 Balance 1390 / 1890 910.25 / 910.25 General: Alert, Oriented x3, Cooperative, No apparent distress HEENT: Atraumatic, PERRLA Oral: Moist Mucosa Neck: Supple, No JVD Lungs: Clear to auscultation, Normal air movement, No rhonchi, No wheeze, No rales Cardiovascular: Regular rate, Regular Rhythm, Normal S1, Normal S2 Abdomen: Bowel Sounds Present, Soft, Non Tender Extremities: Capillary Refill Less than 3 Seconds, No Calf Tenderness Musculoskeletal: Tenderness - on palpation to right foot Neurological: Motor Exam 5/5 strength throughout, Sensory exam intact to light touch and pain Psych/Mental Status: Normal Affect, Alert and oriented to time, place, person, mood and affect Microbiology Past 72 Hours 04/09/19 Unknown Biopsy - Ankle Wound Culture - Preliminary Staphylococcus species Laboratory Results 04/09/19 : S.aureus Protein A PCR POSITIVE H, MRSA (PCR) Negative Current Medications Acetaminophen (Tylenol) 650 mg PO Q4H PRN PRN PRN Reason: HEADACHE/FEVER (T>100F) Last Admin: 04/10/19 00:23 Dose: 650 mg Documented by: Hydrocodone Bitart/Acetaminophen ([place] 5mg-325mg) 1 tablet PO Q4H PRN PRN PRN Reason: Pain Score 1-10/10 Last Admin: 04/10/19 12:06 Dose: 1 tablet Documented by: Docusate Sodium (Colace) 200 mg PO BID PRN PRN PRN Reason: Constipation Enoxaparin Sodium (Lovenox) 40 mg SC DAILY@0600 [facility] Last Admin: 04/10/19 05:05 Dose: 40 mg Documented by: Hydromorphone HCl (Dilaudid Inj) 0.5 mg IV Q2H PRN PRN PRN Reason: Pain Score 6-10/10 Sodium Chloride () 250 mls @ 15 mls/hr IV .[id number] PRN PRN Reason: Saline Flush Last Infusion: 04/10/19 06:10 Dose: 0 mls/hr Documented by: Piperacillin Sod/Tazobactam (Sod 3.375 gm/ Sodium Chloride) 50 mls @ 12.5 mls/hr IV Q8 [facility] Last Infusion: 04/10/19 10:15 Dose: Infused Documented by: Vancomycin IV Pharmacy to Dose (1 ea/ Sodium Chloride) 500 mls @ 250 mls/hr IV X1 PRN; Protocol PRN Reason: Rx to Dose Vancomycin HCl (Vancomycin) 1,000 mg in 200 mls @ 200 mls/hr IV Q8H [facility] Last Infusion: 04/10/19 06:00 Dose: Infused Documented by: Ondansetron HCl (Zofran) 4 mg IV Q6H PRN PRN PRN Reason: NAUSEA/VOMITING Sodium Chloride () 10 - 40 ml IV UD PRN PRN Reason: SALINE FLUSH Medical Necessity - Tobacco Use Smoking Status: Never smoker Tobacco Use: Non-smoker Assessment/Plan All Active Problems Closed right calcaneal fracture (Acute) Postoperative infection (Acute) Cellulitis of right foot (Acute) There is a 48-year-old male who is 1 day status post incision and drainage of right foot abscess secondary to postoperative infection. At this time a full discussion was had with the patient and his about his current clinical condition. I discussed with the patient that would like to keep the wound VAC intact until April 12. At that time, I will remove the wound VAC and observe the wound. If the wound appears healthy with no further signs of infection, I would like to take the patient back for delayed primary closure of the wound. If the wound still appears infectious in nature, I will recommend a possible graft placement on the wound in the operating room vs. continuation of the wound VAC as an outpatient. I also discussed with the patient that a graft and closure of the wound can be performed as an outpatient. The patient displayed verbal understanding and is agreeable to any treatment plan that we decide is necessary. I discussed with the patient that there is a possibility that we may need to have the wound VAC used on an outpatient basis. Patient is agreeable to this if necessary. We are awaiting the culture results that were taken the operating room from yesterday. At this time patient is to continue on broad-spectrum IV antibiotics. I appreciate Dr. Denney's help and assistance in medical management of this patient. Dr. Posadas from Infectious Disease has been consulted and will see the patient on April 12 for further antibiotic coverage. Patient to continue nonweightbearing to the right lower extremity. DVT prophylaxis to be continued. Patient displayed verbal understanding to all written and oral instructions at this time. Patient is agreeable to the current treatment plan at this time. All of his questions were answered to his satisfaction and all of his concerns were addressed. We will continue to follow closely and update accordingly. I appreciate all help and assistance in managing this patient. Code Visit Inpatient E&M: 73484 Subs Hosp L2
[2019-04-10 15:00] VITALS: BP 116/76; PULSE 74; RESP 18; TEMP 37.1; O2SAT 94
--- NOTE | 2019-04-10 16:04 | PCM.PROGNOTE ---
Patient Problems: Active and Suspected Problems Postoperative infection (Acute) Cellulitis of right foot (Acute) Subjective: Patient was seen and examined today, he remains afebrile, wound cultures growing out staph species. He states he had quite a bit of wound pain last night but it is better today. - Physical Exam Vitals/I&O's: Vital Signs Temp Pulse Resp BP Pulse Ox 98.7 F 74 18 116/76 94 04/10/19 15:00 04/10/19 15:00 04/10/19 15:00 04/10/19 15:00 04/10/19 15:00 Oxygen Delivery Method Room Air Weight: 90.9 kg Body Mass Index (BMI) 27.1 Intake and Output for Last 24 Hours 04/08/19 04/09/19 04/10/19 23:59 23:59 23:59 Intake Total 1390 / 1890 1860.25 / 1860.25 Output Total 750 / 750 Balance 1390 / 1890 1110.25 / 1110.25 General: Alert, Oriented x3, Cooperative, No apparent distress, Well developed HEENT: Atraumatic, PERRLA, EOMI, Normocephalic Oral: Moist Mucosa Neck: Supple, Trachea Midline, Thyroid Normal Size and Texture Lungs: Clear to auscultation, Normal air movement, No rhonchi, No wheeze, No rales Cardiovascular: Regular rate, Regular Rhythm, Normal S1, Normal S2, No murmurs, PMI Normal, No rub noted, No Gallop Abdomen: Bowel Sounds Present, Soft, Non Tender, Non-Distended Extremities: No clubbing, No cyanosis, Capillary Refill Less than 3 Seconds Skin: No rashes Neurological: Cranial nerves II-XII grossly intact, Neuro grossly intact, Sensory exam intact to light touch and pain Psych/Mental Status: Normal Affect, Appropriate, Alert and oriented to time, place, person, mood and affect Microbiology Past 72 Hours 04/09/19 Unknown Biopsy - Ankle Gram Stain - Final 04/09/19 Unknown Biopsy - Ankle Wound Culture - Preliminary Staphylococcus species Laboratory Results 04/09/19 : S.aureus Protein A PCR POSITIVE H, MRSA (PCR) Negative Current Medications Acetaminophen (Tylenol) 650 mg PO Q4H PRN PRN PRN Reason: HEADACHE/FEVER (T>100F) Last Admin: 04/10/19 00:23 Dose: 650 mg Documented by: Hydrocodone Bitart/Acetaminophen ([place] 5mg-325mg) 1 tablet PO Q4H PRN PRN PRN Reason: Pain Score 1-10/10 Last Admin: 04/10/19 12:06 Dose: 1 tablet Documented by: Docusate Sodium (Colace) 200 mg PO BID PRN PRN PRN Reason: Constipation Enoxaparin Sodium (Lovenox) 40 mg SC DAILY@0600 [facility] Last Admin: 04/10/19 05:05 Dose: 40 mg Documented by: Hydromorphone HCl (Dilaudid Inj) 0.5 mg IV Q2H PRN PRN PRN Reason: Pain Score 6-10/10 Sodium Chloride () 250 mls @ 15 mls/hr IV .[id number] PRN PRN Reason: Saline Flush Last Infusion: 04/10/19 06:10 Dose: 0 mls/hr Documented by: Piperacillin Sod/Tazobactam (Sod 3.375 gm/ Sodium Chloride) 50 mls @ 12.5 mls/hr IV Q8 [facility] Last Admin: 04/10/19 15:04 Dose: 12.5 mls/hr Documented by: Vancomycin IV Pharmacy to Dose (1 ea/ Sodium Chloride) 500 mls @ 250 mls/hr IV X1 PRN; Protocol PRN Reason: Rx to Dose Vancomycin HCl (Vancomycin) 1,000 mg in 200 mls @ 200 mls/hr IV Q8H [facility] Last Infusion: 04/10/19 14:50 Dose: Infused Documented by: Ondansetron HCl (Zofran) 4 mg IV Q6H PRN PRN PRN Reason: NAUSEA/VOMITING Sodium Chloride () 10 - 40 ml IV UD PRN PRN Reason: SALINE FLUSH Medical Necessity - Tobacco Use Smoking Status: Never smoker Tobacco Use: Non-smoker Assessment/Plan All Active Problems Closed right calcaneal fracture (Acute) Postoperative infection (Acute) Cellulitis of right foot (Acute) #1 cellulitis and abscess formation right heel/foot-probably secondary to methicillin sensitive staph aureus-continue present coverage with vancomycin per infectious diseases, patient will need to be seen by PT and OT, patient currently has a wound VAC on his right foot, it is unknown whether he will need to go home with this or whether it could be discontinued prior to his discharge. I have reviewed podiatry's note from today and it appears that the plan is for the patient to have primary closure attempted Friday if it appears possible. #2 status post fracture of right calcaneus #3 elevated alkaline phosphatase-etiology unclear, this will need to be rechecked in the near future Code Visit Inpatient E&M: 32915 Subs Hosp L2
[2019-04-10] MEDS: HYDROmorphone 0.5 MG/0.5 ML SYRINGE IV ×2 (21:28→23:39)
[2019-04-10 21:35] VITALS: BP 115/78; PULSE 73; RESP 16; TEMP 37.6; O2SAT 95
[2019-04-10 21:48] LABS: Vancomycin, Trough Level 17.3 ug/mL (5.0-15.0)
--- NOTE | 2019-04-10 23:34 | PCM.RX.CS ---
Consult Pharmacy has been consulted to manage selected antiobiotic: Vancomycin Type of Consult: Follow-up Suspected Infection: Skin/Soft tissue Prior Doses of Antibiotics Received/Current Regimen: Medications Vancomycin HCl (Vancomycin) 1,000 mg in 200 mls @ 200 mls/hr IV Q8H [facility] Last Admin: 04/10/19 22:40 Dose: Infused Labs: Sodium 142 mmol/L (136-145) 04/09/19 10:25 Potassium 4.3 mmol/L (3.5-5.1) 04/09/19 10:25 Chloride 107 mmol/L (98-107) 04/09/19 10:25 Carbon Dioxide 30.0 mmol/L (21.0-32.0) 04/09/19 10:25 Anion Gap 5 (5-15) 04/09/19 10:25 BUN 12 mg/dL (7-18) 04/09/19 10:25 Creatinine 0.96 mg/dL (0.70-1.30) 04/09/19 10:25 Est GFR (MDRD) Af Amer 107 mL/min (>60) 04/09/19 10:25 Est GFR (MDRD) Non-Af 89 mL/min (>60) 04/09/19 10:25 BUN/Creatinine Ratio 12.6 RATIO (10-20) 04/09/19 10:25 Glucose 93 mg/dL (74-106) 04/09/19 10:25 Vancomycin Trough 17.3 ug/mL (5.0-15.0) H 04/10/19 21:15 Microbiology: Microbiology 04/09/19 Unknown Biopsy - Ankle Gram Stain - Final 04/09/19 Unknown Biopsy - Ankle Wound Culture - Preliminary Staphylococcus species Weight used for dosin kg Estimated Creatinine Clearance: 102 Goal Trough: 15-20 mcg/mL Pharmacy Plan for Drug Dosing: Trough level of 17.3 was within target range of 15-20. Will continue same dosing and re-draw trough in 4 days. Pharmacy Service will continue to monitor and adjust dosing as required. Follow-Up Labs: Trough Vancomycin Labs to be done on [date and time ordered]: 04/14/19 @2343
[2019-04-11] MEDS: Acetaminophen 325 MG Tablet 650 MG PO (02:06)
[2019-04-11 02:13] VITALS: BP 111/74; PULSE 60; RESP 16; TEMP 36.5; O2SAT 95
[2019-04-11] MEDS: HYDROcodone Bitartrate/Apap 5/325 Tablet PO ×5 (03:29→20:40)
[2019-04-11] MEDS: HYDROmorphone 0.5 MG/0.5 ML SYRINGE IV ×2 (05:25→09:13)
[2019-04-11] MEDS: 0.9% Saline Lock 10 ML Syringe IV ×2 (05:25→19:25)
[2019-04-11] MEDS: Vancomycin IV 1,000 MG/200 ML BAG 200 MG IV (05:26)
[2019-04-11] MEDS: Enoxaparin 40 MG/0.4 ML Syringe SC (05:36)
[2019-04-11 06:21] LABS: Absolute Lymphocyte Count 2.46 X10^3/uL (0.83-4.51); Absolute Neutrophil Count 4.5 X10^3/uL (2.0-7.7); Basophil# 0.07 X10^3/uL; Basophil% 0.8 % (0-1); Eosinophil# 0.66 X10^3/uL; Eosinophils% 7.7 % (0-5); Hematocrit 34.4 % (40-54); Hemoglobin 11.6 g/dL (13.0-16.5); Lymphocyte # 2.46 X10^3/ul (4.0); Lymphocyte % 28.8 % (19-41); Mean Corp Hgb Conc 33.7 g/dL (32-36); Mean Corpuscular Hgb 32.3 pg (27.0-32.0); Mean Corpuscular Volume 95.8 fL (80-94); Mean Platelet Vol. 9.2 fl (6.2-12.0); Monocyte% 9.4 % (0-10); NRBC Flagged by Analyzer 0 % (0-5); Neutrophil % 52.7 % (47-70); Platelet Count 390 K/mm3 (150-450); RBC Distribution Width CV 11.5 % (11.6-14.6); RBC Distribution Width SD 40.5 fl (35.1-43.9); Red Blood Count 3.59 M/mm3 (4.6-6.2); White Blood Count 8.5 K/mm3 (4.4-11.0)
[2019-04-11 06:29] LABS: Erythrocyte Sedimentation Rate 41 mm/hr (0-15)
[2019-04-11 06:38] LABS: ALB/GLOB Ratio 0.8 RATIO (0.9-2.4); AST(SGOT) 17 U/L (15-37); Alanine Aminotransfer ALT/SGPT 40 U/L (16-61); Albumin, Serum 3.2 g/dL (3.2-5.0); Alkaline Phosphatase 204 U/L (45-117); Anion Gap 3 (5-15); BUN 12 mg/dL (7-18); BUN/Creat Ratio 11.3 RATIO (10-20); Calcium,Total 8.7 mg/dL (8.5-10.1); Chloride 106 mmol/L (98-107); Creatinine, Serum 1.06 mg/dL (0.70-1.30); EST Glomerular Filtration Rate 79 mL/min (>60); Est Glom Filt Rate - Afr Amer 95 mL/min (>60); Estimated Creatinine Clearance 92.53 ml/min; Globulin 4.1 g/dL (2.2-4.2); Glucose 93 mg/dL (74-106); Protein, Total 7.3 g/dL (6.4-8.2); Sodium Level 140 mmol/L (136-145)
[2019-04-11 07:44] VITALS: BP 96/61; PULSE 69; RESP 18; TEMP 36.6; O2SAT 94
--- NOTE | 2019-04-11 12:48 | PN.ORTHO_ITS ---
Patient Problems: Active and Suspected Problems Postoperative infection (Acute) Cellulitis of right foot (Acute) Subjective: Patient seen at bedside resting comfortably. Patient admits to improved pain of his right foot. Patient states that overnight, he was experiencing increased pain. The hospitalist has increased his pain medications and he is feeling better. Patient denies any other acute events overnight. Nursing staff denies any other acute events overnight. Patient denies fever, chills, nausea, vomiting, shortness of breath, chest pain. is present at bedside during entire encounter. Objective: Right lower extremity exam: Dressing is clean, dry, intact to the right lower extremity with no evidence of strikethrough noted. Wound VAC is working with adequate seal and suction noted at 125 mmHg low continuous. Less than 50 mL of sanguinous drainage present in the wound VAC. Capillary fill time is less than 3 seconds to all digits. Patient is able to move all digits freely without pain. Light sensation is intact to the digits of the right foot. - Physical Exam Vitals/I&O's: Vital Signs Temp Pulse Resp BP Pulse Ox 97.8 F 69 18 96/61 94 04/11/19 07:44 04/11/19 07:44 04/11/19 07:44 04/11/19 07:44 04/11/19 07:44 Oxygen Delivery Method Room Air Weight: 90.9 kg Body Mass Index (BMI) 27.1 Intake and Output for Last 24 Hours 04/09/19 04/10/19 04/11/19 23:59 23:59 23:59 Intake Total 1390 / 1890 2506.25 / 3106.25 2101.25 / 2101.25 Output Total 750 / 750 500 / 500 Balance 1390 / 1890 1756.25 / 2356.25 1601.25 / 1601.25 General: Alert, Oriented x3, Cooperative, No apparent distress HEENT: Atraumatic Neck: Supple, No JVD Lungs: Clear to auscultation, Normal air movement, No rhonchi, No wheeze Cardiovascular: Regular rate, Regular Rhythm, Normal S1, Normal S2 Abdomen: Bowel Sounds Present, Soft, Non Tender, Non-Distended Extremities: Capillary Refill Less than 3 Seconds Musculoskeletal: Tenderness - upon palpation of right foot Neurological: Sensory exam intact to light touch and pain Psych/Mental Status: Alert and oriented to time, place, person, mood and affect Microbiology Past 72 Hours 04/09/19 Unknown Biopsy - Ankle Gram Stain - Final 04/09/19 Unknown Biopsy - Ankle Wound Culture - Final Staphylococcus aureus Laboratory Results 04/10/19 21:15: Vancomycin Trough 17.3 H 04/11/19 05:18: WBC 8.5, RBC 3.59 L, Hgb 11.6 L, Hct 34.4 L, MCV 95.8 H, MCH 32.3 H, MCHC 33.7, RDW Std Deviation 40.5, RDW Coeff of Dona 11.5 L, Plt Count 390, MPV 9.2, Immature Gran % (Auto) 0.600, Neut % (Auto) 52.7, Lymph % (Auto) 28.8, [place] % (Auto) 9.4, Eos % (Auto) 7.7 H, Baso % (Auto) 0.8, Absolute Neuts (auto) 4.5, Absolute Lymphs (auto) 2.46, Nucleated RBC % 0, ESR 41 H 04/11/19 05:18: Sodium 140, Potassium 4.0, Chloride 106, Carbon Dioxide 31.0, Anion Gap 3 L, BUN 12, Creatinine 1.06, Estim Creat Clear Calc 92.53, Est GFR (MDRD) Af Amer 95, Est GFR (MDRD) Non-Af 79, BUN/Creatinine Ratio 11.3, Glucose 93, Calcium 8.7, Total Bilirubin 0.80, AST 17, ALT 40, Alkaline Phosphatase 204 H, C-React Prot Ext Range 17.10 H, Total Protein 7.3, Albumin 3.2, Globulin 4.1, Albumin/Globulin Ratio 0.8 L Current Medications Acetaminophen (Tylenol) 650 mg PO Q4H PRN PRN PRN Reason: HEADACHE/FEVER (T>100F) Last Admin: 04/11/19 02:06 Dose: 650 mg Documented by: Hydrocodone Bitart/Acetaminophen ([place] 5mg-325mg) 1 - 2 tablet PO Q4H PRN PRN PRN Reason: Pain Score 1-10/10 Last Admin: 04/11/19 11:41 Dose: 2 tablet Documented by: Docusate Sodium (Colace) 200 mg PO BID PRN PRN PRN Reason: Constipation Enoxaparin Sodium (Lovenox) 40 mg SC DAILY@0600 [facility] Last Admin: 04/11/19 05:36 Dose: 40 mg Documented by: Hydromorphone HCl (Dilaudid Inj) 1 - 1.5 mg IV Q2H PRN PRN PRN Reason: Pain Score 6-10/10 Sodium Chloride () 250 mls @ 15 mls/hr IV .[id number] PRN PRN Reason: Saline Flush Last Infusion: 04/11/19 11:16 Dose: 15 mls/hr Documented by: Piperacillin Sod/Tazobactam (Sod 3.375 gm/ Sodium Chloride) 50 mls @ 12.5 mls/hr IV Q8 [facility] Last Infusion: 04/11/19 10:40 Dose: Infused Documented by: Vancomycin IV Pharmacy to Dose (1 ea/ Sodium Chloride) 500 mls @ 250 mls/hr IV X1 PRN; Protocol PRN Reason: Rx to Dose Vancomycin HCl (Vancomycin) 1,000 mg in 200 mls @ 200 mls/hr IV Q8H [facility] Last Infusion: 04/11/19 06:37 Dose: Infused Documented by: Ondansetron HCl (Zofran) 4 mg IV Q6H PRN PRN PRN Reason: NAUSEA/VOMITING Sodium Chloride () 10 - 40 ml IV UD PRN PRN Reason: SALINE FLUSH Last Admin: 04/11/19 05:25 Dose: 10 ml Documented by: Medical Necessity - Tobacco Use Smoking Status: Never smoker Tobacco Use: Non-smoker Assessment/Plan All Active Problems Closed right calcaneal fracture (Acute) Postoperative infection (Acute) Cellulitis of right foot (Acute) There is a 48-year-old male who is 2 days status post incision and drainage of right foot abscess secondary to postoperative infection. At this time a full discussion was had with the patient and his about his current clinical condition. I discussed with the patient that would like to keep the wound VAC intact until tomorrow, April 12. At that time, I will remove the wound VAC and observe the wound. If the wound appears healthy with no further signs of infection, I would like to take the patient back for delayed primary closure of the wound on the night of April 12. If the wound still appears infectious in nature, I will recommend a possible graft placement on the wound in the operating room on 04/12 vs. continuation of the wound VAC as an outpatient. I also discussed with the patient that a graft and closure of the wound can be performed as an outpatient as well if the wound is not ready tomorrow. The patient displayed verbal understanding and is agreeable to any treatment plan that we decide is necessary. I discussed with the patient that there is a possibility that we may need to have the wound VAC used on an outpatient basis. Patient is agreeable to this if necessary. We are awaiting the culture results that were taken the operating room from yesterday. At this time patient is to continue on broad-spectrum IV antibiotics. We will continue pain medication as needed. PT/OT ordered for patient. I appreciate Dr. Denney's help and assistance in medical management of this patient. Dr. Posadas from Infectious Disease has been consulted and will see the patient on Friday, April 12 for further antibiotic coverage. Patient to continue nonweightbearing to the right lower extremity. DVT prophylaxis to be continued. Patient displayed verbal understanding to all written and oral instructions at this time. Patient is agreeable to the current treatment plan at this time. All of his questions were answered to his satisfaction and all of his concerns were addressed. I will remove the wound VAC tomorrow and decide further course at that time. We will continue to follow closely and update accordingly. I appreciate all help and assistance in managing this patient. Code Visit Inpatient E&M: 91513 Subs Hosp L2
[2019-04-11 14:15] VITALS: BP 113/68; PULSE 71; RESP 18; TEMP 37.2; O2SAT 94
[2019-04-11] MEDS: HYDROmorphone 1 MG/ML Syringe IV ×2 (14:52→19:26)
--- NOTE | 2019-04-11 15:58 | PCM.PROGNOTE ---
Patient Problems: Active and Suspected Problems Postoperative infection (Acute) Cellulitis of right foot (Acute) Subjective: Patient was seen and examined today, his wound culture grew out staph aureus which is sensitive to penicillin, I talked briefly with infectious diseases today by phone and I am going to stop the patient's vancomycin and Zosyn and place the patient on Ancef. Patient complains of pain in his operative foot, I have increased the patient's pain medications today. - Physical Exam Vitals/I&O's: Vital Signs Temp Pulse Resp BP Pulse Ox 98.9 F 71 18 113/68 94 04/11/19 14:15 04/11/19 14:15 04/11/19 14:15 04/11/19 14:15 04/11/19 14:15 Oxygen Delivery Method Room Air Weight: 90.9 kg Body Mass Index (BMI) 27.1 Intake and Output for Last 24 Hours 04/09/19 04/10/19 04/11/19 23:59 23:59 23:59 Intake Total 1390 / 1890 2506.25 / 3106.25 2142.25 / 2142.25 Output Total 750 / 750 500 / 500 Balance 1390 / 1890 1756.25 / 2356.25 1642.25 / 1642.25 General: Alert, Oriented x3, Cooperative, No apparent distress, Well developed HEENT: Atraumatic, PERRLA, EOMI, Normocephalic Oral: Moist Mucosa Neck: Supple, No JVD, Trachea Midline, Thyroid Normal Size and Texture Lungs: Clear to auscultation, Normal air movement, No rhonchi, No wheeze, No rales Cardiovascular: Regular rate, Regular Rhythm, Normal S1, Normal S2, No murmurs Abdomen: Bowel Sounds Present, Soft, Non Tender, Non-Distended Extremities: No clubbing, No cyanosis, Capillary Refill Less than 3 Seconds Skin: No rashes, No breakdown Neurological: Cranial nerves II-XII grossly intact, Neuro grossly intact, Sensory exam intact to light touch and pain Psych/Mental Status: Normal Affect, Appropriate, Alert and oriented to time, place, person, mood and affect Microbiology Past 72 Hours 04/09/19 Unknown Biopsy - Ankle Gram Stain - Final 04/09/19 Unknown Biopsy - Ankle Wound Culture - Final Staphylococcus aureus Laboratory Results 04/10/19 21:15: Vancomycin Trough 17.3 H 12/29/19 05:18: WBC 8.5, RBC 3.59 L, Hgb 11.6 L, Hct 34.4 L, MCV 95.8 H, MCH 32.3 H, MCHC 33.7, RDW Std Deviation 40.5, RDW Coeff of Dona 11.5 L, Plt Count 390, MPV 9.2, Immature Gran % (Auto) 0.600, Neut % (Auto) 52.7, Lymph % (Auto) 28.8, [place] % (Auto) 9.4, Eos % (Auto) 7.7 H, Baso % (Auto) 0.8, Absolute Neuts (auto) 4.5, Absolute Lymphs (auto) 2.46, Nucleated RBC % 0, ESR 41 H 04/11/19 05:18: Sodium 140, Potassium 4.0, Chloride 106, Carbon Dioxide 31.0, Anion Gap 3 L, BUN 12, Creatinine 1.06, Estim Creat Clear Calc 92.53, Est GFR (MDRD) Af Amer 95, Est GFR (MDRD) Non-Af 79, BUN/Creatinine Ratio 11.3, Glucose 93, Calcium 8.7, Total Bilirubin 0.80, AST 17, ALT 40, Alkaline Phosphatase 204 H, C-React Prot Ext Range 17.10 H, Total Protein 7.3, Albumin 3.2, Globulin 4.1, Albumin/Globulin Ratio 0.8 L Current Medications Acetaminophen (Tylenol) 650 mg PO Q4H PRN PRN PRN Reason: HEADACHE/FEVER (T>100F) Last Admin: 04/11/19 02:06 Dose: 650 mg Documented by: Hydrocodone Bitart/Acetaminophen ([place] 5mg-325mg) 1 - 2 tablet PO Q4H PRN PRN PRN Reason: Pain Score 1-10/10 Last Admin: 04/11/19 11:41 Dose: 2 tablet Documented by: Docusate Sodium (Colace) 200 mg PO BID PRN PRN PRN Reason: Constipation Enoxaparin Sodium (Lovenox) 40 mg SC DAILY@0600 [facility] Last Admin: 04/11/19 05:36 Dose: 40 mg Documented by: Hydromorphone HCl (Dilaudid Inj) 1 - 1.5 mg IV Q2H PRN PRN PRN Reason: Pain Score 6-10/10 Last Admin: 04/11/19 14:52 Dose: 1 mg Documented by: Sodium Chloride () 250 mls @ 15 mls/hr IV .[id number] PRN PRN Reason: Saline Flush Last Infusion: 04/11/19 14:00 Dose: 0 mls/hr Documented by: Cefazolin Sodium 2 gm/ Sodium (Chloride) 110 mls @ 150 mls/hr IV Q8 [facility] Ondansetron HCl (Zofran) 4 mg IV Q6H PRN PRN PRN Reason: NAUSEA/VOMITING Sodium Chloride () 10 - 40 ml IV UD PRN PRN Reason: SALINE FLUSH Last Admin: 04/11/19 05:25 Dose: 10 ml Documented by: Medical Necessity - Tobacco Use Smoking Status: Never smoker Tobacco Use: Non-smoker Assessment/Plan All Active Problems Closed right calcaneal fracture (Acute) Postoperative infection (Acute) Cellulitis of right foot (Acute) #1 cellulitis and abscess formation right heel/foot-probably secondary to methicillin sensitive staph aureus-patient's antibiotic coverage was changed to Ancef 2 g every 8 hours, patient's pain medications were increased. #2 status post fracture of right calcaneus #3 elevated alkaline phosphatase-etiology unclear, this will need to be rechecked in the near future Code Visit Inpatient E&M: [id number] Subs Hosp L2
[2019-04-11 20:15] VITALS: BP 113/82; PULSE 71; RESP 16; TEMP 36.4; O2SAT 95
[2019-04-11] MEDS: Cefazolin 2 GM in 0.9% Normal Saline 100 ML IV (22:33)
[2019-04-12] VITALS (10 sets, daily range): BP systolic 101–124; BP diastolic 65–79; PULSE 66–98; RESP 14–18; TEMP 36.4–37.8; O2SAT 94–97; BMI 27.1
[2019-04-12] MEDS: HYDROcodone Bitartrate/Apap 5/325 Tablet PO ×4 (00:54→19:49)
[2019-04-12] MEDS: Cefazolin 2 GM in 0.9% Normal Saline 100 ML IV ×3 (06:05→21:12)
[2019-04-12] MEDS: HYDROmorphone 1 MG/ML Syringe IV ×2 (07:40→13:18)
[2019-04-12] MEDS: 0.9% Saline Lock 10 ML Syringe IV ×2 (07:41→13:18)
--- NOTE | 2019-04-12 08:55 | PN_ITS ---
Patient Problems: Active and Suspected Problems Postoperative infection (Acute) Cellulitis of right foot (Acute) Reason for Visit: Follow-up right foot postoperative infection Subjective: Patient is a 48-year-old gentleman admitted with postoperative infection involving the right foot. Patient underwent incision and drainage of abscess by podiatry on 03/30/2019. Cultures came back positive for MSSA Objective: GENERAL: cooperative HEENT: Atraumatic; EYES; Anicteric, Normal Conjunctiva NECK; supple, normal thyroid, RESPIRATORY: Diminished to auscultation CARDIOVASCULAR: Regular S1 S2, GI: soft, normoactive bowel sounds, : No Renal angle tenderness; EXTREMITIES: No edema, no clubbing, MUSCULOSKELETAL:right foot in surgical dressing NEURO: Awake; no lateralizing signs. SKIN: No Rash PSYCH; Flat affect Vitals/I&O's: Vital Signs Temp Pulse Resp BP Pulse Ox 97.6 F L 67 14 111/75 95 04/12/19 07:38 04/12/19 07:38 04/12/19 07:38 04/12/19 07:38 04/12/19 07:38 Oxygen Delivery Method Room Air Weight: 90.9 kg Body Mass Index (BMI) 27.1 Intake and Output for Last 24 Hours 04/10/19 04/11/19 04/12/19 23:59 23:59 23:59 Intake Total 2506.25 / 3106.25 2612.25 / 3012.25 810 / 810 Output Total 750 / 750 500 / 1000 500 / 500 Balance 1756.25 / 2356.25 2112.25 / 2012.25 310 / 310 Microbiology Past 72 Hours 04/09/19 Unknown Biopsy - Ankle Gram Stain - Final 04/09/19 Unknown Biopsy - Ankle Wound Culture - Final Staphylococcus aureus Current Medications Acetaminophen (Tylenol) 650 mg PO Q4H PRN PRN PRN Reason: HEADACHE/FEVER (T>100F) Last Admin: 04/11/19 02:06 Dose: 650 mg Documented by: Hydrocodone Bitart/Acetaminophen ([place] 5mg-325mg) 1 - 2 tablet PO Q4H PRN PRN PRN Reason: Pain Score 1-10/10 Last Admin: 04/12/19 04:26 Dose: 2 tablet Documented by: Docusate Sodium (Colace) 200 mg PO BID PRN PRN PRN Reason: Constipation Enoxaparin Sodium (Lovenox) 40 mg SC DAILY@0600 [facility] Last Admin: 04/12/19 06:06 Dose: Not Given Documented by: Hydromorphone HCl (Dilaudid Inj) 1 - 1.5 mg IV Q2H PRN PRN PRN Reason: Pain Score 6-10/10 Last Admin: 04/12/19 07:40 Dose: 1 mg Documented by: Sodium Chloride () 250 mls @ 15 mls/hr IV .[id number] PRN PRN Reason: Saline Flush Last Admin: 04/11/19 22:34 Dose: 15 mls/hr Documented by: Cefazolin Sodium 2 gm/ Sodium (Chloride) 110 mls @ 150 mls/hr IV Q8 [facility] Last Infusion: 04/12/19 06:49 Dose: Infused Documented by: Ondansetron HCl (Zofran) 4 mg IV Q6H PRN PRN PRN Reason: NAUSEA/VOMITING Sodium Chloride () 10 - 40 ml IV UD PRN PRN Reason: SALINE FLUSH Last Admin: 04/12/19 07:41 Dose: 10 ml Documented by: STROKE Vital Signs/Narrative: Vital Signs Temp Pulse Resp BP Pulse Ox 04/12/19 07:38 97.6 F L 67 14 111/75 95 Medical Necessity - Tobacco Use Smoking Status: Never smoker Tobacco Use: Non-smoker Assessment/Plan All Active Problems Closed right calcaneal fracture (Acute) Postoperative infection (Acute) Cellulitis of right foot (Acute) Patient is a 48-year-old gentleman admitted with postoperative infection involving the right foot. Patient underwent incision and drainage of abscess by podiatry on 03/30/2019. Cultures came back positive for MSSA 1. Postoperative infection involving the right foot ?Patient underwent incision and drainage of abscess right foot washout podiatry on 04/09/2019. Cultures came back positive for MSSA patient currently being managed with Ancef 2. Status post right calcaneal fracture 3. Alkaline phosphatase ~thought to be secondary from bone. Patient will need follow-up by PCP 4. DVT prophylaxis ~SC enoxaparin Microbiology 04/09/19 Unknown Biopsy - Ankle Gram Stain - Final 04/09/19 Unknown Biopsy - Ankle Wound Culture - Final Staphylococcus aureus Code Visit Inpatient E&M: 70209 Subs Hosp L2
--- NOTE | 2019-04-12 12:38 | PCM.PN.ORT ---
Patient Problems: Active and Suspected Problems Postoperative infection (Acute) Cellulitis of right foot (Acute) Subjective: Patient seen at bedside resting comfortably. Patient's is present at bedside. Patient admits to significant improved pain of his right foot at this time. He is tolerating his nonweightbearing activities well. Patient has been n.p.o. since midnight for possible surgical intervention today. Patient denies any other acute complaints at this time. Currently, patient denies fever, chills, nausea, vomiting, shortness of breath, chest pain. Patient denies right calf pain. Objective: Wound VAC of right foot: Adequate seal and suction noted at 125 mmHg low continuous with less than 50 mL of serosanguineous drainage. Dressing was removed of the right lower extremity. Dressing was clean, dry, intact with no evidence of strikethrough. Vascular assessment: Dorsalis pedis and posterior tibial pulse palpable of the right lower extremity. Capillary fill time is less than 3 seconds all digits. Temperature gradient is within normal limits. Nonpitting edema noted in the lateral aspect of the right foot and ankle. Musculoskeletal: Deferred at this time. Dermatological: Wound of the lateral aspect of the right foot measures approximately 6 cm x 1.0 cm x 1.5 cm with a granular base and rounded smooth edges. Positive exposed peroneal tendons. Increasing granulation tissue from preoperative assessment. Significant decrease in erythema noted from preoperative assessment. There is no fluctuance, no crepitus, no malodor, no drainage, no purulence. Pain upon palpation of wound. There is no tunneling, no tracking, no undermining. Neurological: Gross and protective sensation intact to the right lower extremity. - Physical Exam Vitals/I&O's: Vital Signs Temp Pulse Resp BP Pulse Ox 97.6 F L 67 14 111/75 95 04/12/19 07:38 04/12/19 07:38 04/12/19 07:38 04/12/19 07:38 04/12/19 07:38 Oxygen Delivery Method Room Air Weight: 90.9 kg Body Mass Index (BMI) 27.1 Intake and Output for Last 24 Hours 04/10/19 04/11/19 04/12/19 23:59 23:59 23:59 Intake Total 2506.25 / 3106.25 2612.25 / 3012.25 810 / 810 Output Total 750 / 750 500 / 1000 500 / 500 Balance 1756.25 / 2356.25 2112.25 / 310 / 310 General: Alert, Cooperative, No apparent distress HEENT: Atraumatic, PERRLA Neck: Supple, No JVD Lungs: Clear to auscultation, Normal air movement, No rhonchi, No wheeze, No rales Cardiovascular: Regular rate, Regular Rhythm, Normal S1, Normal S2 Abdomen: Bowel Sounds Present, Soft, Non Tender, Non-Distended Extremities: Capillary Refill Less than 3 Seconds, Peripheral Pulses Normal, Tenderness - on palpation of right foot/ankle Neurological: Sensory exam intact to light touch and pain Psych/Mental Status: Alert and oriented to time, place, person, mood and affect Microbiology Past 72 Hours 04/09/19 Unknown Biopsy - Ankle Gram Stain - Final 04/09/19 Unknown Biopsy - Ankle Wound Culture - Final Staphylococcus aureus 04/09/19 Unknown Biopsy - Ankle Anaerobic Culture - Preliminary Checking for anaerobes, further studies to follow. Current Medications Acetaminophen (Tylenol) 650 mg PO Q4H PRN PRN PRN Reason: HEADACHE/FEVER (T>100F) Last Admin: 04/11/19 02:06 Dose: 650 mg Documented by: Hydrocodone Bitart/Acetaminophen ([place] 5mg-325mg) 1 - 2 tablet PO Q4H PRN PRN PRN Reason: Pain Score 1-10/10 Last Admin: 04/12/19 09:54 Dose: 2 tablet Documented by: Docusate Sodium (Colace) 200 mg PO BID PRN PRN PRN Reason: Constipation Enoxaparin Sodium (Lovenox) 40 mg SC DAILY@0600 [facility] Last Admin: 04/12/19 06:06 Dose: Not Given Documented by: Hydromorphone HCl (Dilaudid Inj) 1 - 1.5 mg IV Q2H PRN PRN PRN Reason: Pain Score 6-10/10 Last Admin: 04/12/19 07:40 Dose: 1 mg Documented by: Sodium Chloride () 250 mls @ 15 mls/hr IV .[id number] PRN PRN Reason: Saline Flush Last Admin: 04/11/19 22:34 Dose: 15 mls/hr Documented by: Cefazolin Sodium 2 gm/ Sodium (Chloride) 110 mls @ 150 mls/hr IV Q8 ALEKSANDR Last Infusion: 12/30/19 06:49 Dose: Infused Documented by: Ondansetron HCl (Zofran) 4 mg IV Q6H PRN PRN PRN Reason: NAUSEA/VOMITING Sodium Chloride () 10 - 40 ml IV UD PRN PRN Reason: SALINE FLUSH Last Admin: 04/12/19 07:41 Dose: 10 ml Documented by: Medical Necessity - Tobacco Use Smoking Status: Never smoker Tobacco Use: Non-smoker Assessment/Plan All Active Problems Closed right calcaneal fracture (Acute) Postoperative infection (Acute) Cellulitis of right foot (Acute) There is a 48-year-old male who is 3 days status post incision and drainage of right foot abscess secondary to postoperative infection. At this time a full discussion was had with the patient and his about his current clinical condition. I discussed with the patient that at this time I recommend a graft placement on the wound in the operating room today 04/12 and continuation of the wound VAC. The patient displayed verbal understanding and is agreeable to the surgical intervention to be performed today. Order placed for home wound VAC to be obtained. Culture results reveal MSSA. At this time patient is to continue on IV ancef. We will continue pain medication as needed. PT/OT ordered for patient. I appreciate Dr. Denney's help and assistance in medical management of this patient. Dr. Posadas from Infectious Disease has been consulted and will see the patient on Friday, April 12 for further antibiotic coverage. Patient to continue nonweightbearing to the right lower extremity. DVT prophylaxis to be continued. Patient displayed verbal understanding to all written and oral instructions at this time. Patient is agreeable to the current treatment plan at this time. All of his questions were answered to his satisfaction and all of his concerns were addressed. Patient to continue NPO for surgical debridement, washout, graft application and wound VAC application today. Will plan for discharge tomorrow, 04/13, pending input from Dr. Posadas on whether oral vs. IV antibiotics should be used. We will continue to follow closely and update accordingly. I appreciate all help and assistance in managing this patient. Code Visit Inpatient E&M: [id number] Subs Hosp L2
--- NOTE | 2019-04-12 15:05 | PCM.HP.ID ---
Problem List (1) Postoperative infection Status: Acute Qualifiers: Encounter type: initial encounter Postoperative infection type: deep incisional surgical site Qualified Code(s): T81.42XA - Infection following a procedure, deep incisional surgical site, initial encounter Reason for Consult: ankle abscess Consulted by: Dr. Cisneros History of Present Illness: The patient is a 48 year old M with R ankle fracture, taken to OR 03/[address] Cisneros for removal of avulsed bone fragment. After the surgery, pt had continued pain. Developed some chills, not feeling well. Initial postop visit showed the wound doing well. He returned 04/[address] Cisneros. When dressing was removed, found to have redness, swelling, purulence. Admitted to hospital, started on vanc/zosyn, taken to OR 04/09. 10ml of pus drained, bone was healthy appearing. Cxs showing MSSA. Abx narrowed to cefazolin, feeling better, no fever. OR today planned. Full ROS performed and neg except as noted above. - Medical History Allergies/Adverse Reactions: Allergies No Known Allergies Allergy (Verified 03/24/19 09:10) Home Medications: Ambulatory Orders Medication Instructions Recorded Aspirin [Aspirin, Baby] 81 mg PO DAILY 04/09/19 - Social History Tobacco Use: non-smoker Vital Signs Temp Pulse Resp BP Pulse Ox 97.6 F L 67 14 111/75 95 04/12/19 07:38 04/12/19 07:38 04/12/19 07:38 04/12/19 07:38 04/12/19 07:38 Oxygen Delivery Method Room Air Weight: 90.9 kg Body Mass Index (BMI) 27.1 Microbiology Past 72 Hours 04/09/19 Unknown Gram Stain - Final Biopsy - Ankle Wound Culture - Final Staphylococcus aureus Anaerobic Culture - Preliminary Checking for anaerobes, further studies to follow. - Other Studies Radiology: [] reviewed Other Studies: [] Route of nutrition/ use of supplements: [] Nutritional Intake: [] IV Site: [] Jensen Catheter: [] - Physical Exam General: Alert, Oriented x3, Cooperative, No apparent distress HEENT: Atraumatic, PERRLA, EOMI Neck: Supple, No Nodes Lungs: Clear to auscultation, Normal air movement Cardiovascular: Regular rate, Regular Rhythm, No murmurs Abdomen: Soft, Non Tender, Non-Distended Extremities: Edema - R foot swelling Skin: Incision - R foot wrapped IV Site: Peripheral, without redness Neurological: Cranial nerves II-XII grossly intact - Assessment/Plan Antibiotics: [] Assessment/Plan: [] Active and Suspected Problems Postoperative infection (Acute) Cellulitis of right foot (Acute) MSSA R foot abscess s/p surgery for ankle fracture 03/25/19. Taken to OR 04/09 for I&D. Bone appeared hard and healthy. He is going to the OR today for repeat eval. Given the close proximity of the abscess to the bone, would recommend he be discharged on 6 weeks of po doxy 100mg bid to cover for possible osteo. ID followup with me as needed. Will follow, thank you. D/w embedded case manager.
[2019-04-12] MEDS: Lactated Ringers 1,000 ML 100 ML IV (16:30)
[2019-04-12] MEDS: Bupivacaine Mpf 0.5% 30 ML VIAL (17:11)
--- NOTE | 2019-04-12 17:38 | OP.PCM_ITS ---
Problem List (1) Postoperative infection Status: Acute Qualifiers: Encounter type: subsequent encounter Postoperative infection type: deep incisional surgical site Qualified Code(s): T81.42XD - Infection following a procedure, deep incisional surgical site, subsequent encounter (2) Cellulitis of right foot Status: Acute Report of Operation Date of Procedure: 04/12/19 Pre-Operative Diagnosis: 1. Right foot abscess. #2 right foot cellulitis. #3 right foot postoperative infection Post-Operative Diagnosis: Same as preoperative Surgery/Procedure Performed:: 1. Sharp excisional wound debridement of nonviable tissue down to and including level of tendon/muscle/fascia right foot. #2 washout of right foot wound. #3 application of synthetic skin substitute right foot wound. #4 application of wound VAC right foot wound Description of Surgical Findings:: Consistent with diagnosis. Soft tissue present appeared healthy with positive granulation tissue. No purulence evacuated during surgery. Bone appeared hard, healthy, and pearly white with no signs of osteonecrosis. Type of Anesthesia:: Local MAC Anesthesiologist: Cody Reeves Specimen's removed: Wound culture of right foot wound status post washout for aerobic, anaerobic, acid-fast, fungal organisms and PCR Drains: Wound VAC to right foot wound at 125 mmHg low continuous Estimated Blood Loss (mL): 10 mL Description of Procedure: Anesthesia: IV sedation with local block given to the right lower extremity consisting of 30 mL of 0.5 Marcaine plain distributed ankle block fashion Hemostasis: Anatomic dissection Estimated blood loss: less than 10 mL Materials: 1.)Integra bilayer graft. 2 black foam and associated wound VAC tape. #3 wound VAC Injectables: None Complications: None Condition: Stable Indications: Patient is a 48-year-old male who had surgery approximately 2 weeks ago for avulsion of calcaneal fracture of the right calcaneus. Patient saw me in the office on April 09 there was revealed that there was a significant postoperative infection. At that time, I admitted the patient to the the hospital and underwent emergency incision and drainage with washout of right foot wound. Wound cultures were taken at that time growing MSSA. A wound VAC was placed on the right foot wound. Infectious disease was consulted for antibiotic coverage along with the hospitalist was consulted for medical management. Patient was started on broad-spectrum IV antibiotics which have been switched to IV Ancef due to the coverage and cultures. Upon removal of the wound VAC today, I noticed a healthy granular tissue base. Due to the size of the wound and possibility for further underlying infection, I decided that time to take the patient back to the operating room for further washout and debridement. I discussed with the patient that I would need to place a graft with a wound VAC on here to assist in the healing. I did not feel comfortable at this time performing delayed primary closure due to the possibility of underlying infection still present. Operative report: Before the patient brought to the room, all the risks, benefits, possible outcomes, possible complications of the procedure discussed with the patient. All the patient questions were answered to his satisfaction and all of his concerns were addressed. No guarantees were made as to the outcome of the procedure. Patient understood all aspects of the procedure and consent was signed by the patient. Patient was then brought to the operating room and placed on the operating table in supine position. After timeout, under IV sedation, 30 mL of 0.5% Marcaine plain was distributed ankle block fashion to the right ankle. The right foot, ankle, leg were then scrubbed, prepped, draped in the usual sterile manner. Attention was then directed to the lateral aspect of the right foot where the wound was present. At that time, granulation tissue was noted of the wound with minimal necrotic tissue. Furthermore, no purulence was able to be expressed from this wound. The wound looked healthy with granular tissue. Visual inspection was then performed of the calcaneus bone. The calcaneus bone appeared hard, healthy and pearly white with no signs of osteonecrosis. At this time, a #15 blade along with a curette was used to remove any fibrotic and necrotic tissue contained within the wound. This was performed down to including level of the tendon/muscle/fascia. This nonviable tissue was removed in the operative site. Healthy active bleeding was noted of the wound. No purulence was expressed from the wound. The remaining tissue appeared healthy with no signs of acute clinical infection. At this time, the wound was irrigated with 6 L of normal sterile saline. The right foot and ankle were then reprepped and draped and gloves were changed. At this time the wound measured to be 4 cm x 1 cm x 1.5 cm. Next, a wound cultures were taken for aerobic, anaerobic, acid-fast, fungal organisms and PCR. These were taken status post washout. At this time, the Integra bilayer mesh graft was cut to appropriate size of the wound. The collagen that was contained in the excess graft was scraped off and placed into the wound site. The appropriate size piece of graft was then placed on top of the wound site and was adhered utilizing skin jace. At this time black foam was cut to appropriate size of the wound. The wound edges and the skin surrounding the wound were protected via the VAC tape. The black foam was then placed on top of the wound and was adhered utilizing the VAC tape. The wound VAC was then placed, and adequate seal and suction was noted at 125 mmHg low continuous. At this time these wound sites were then dressed with a 4 x 4 gauze. Adequate padding was placed on the foot, ankle and up the leg to make sure that the wound VAC tube was not pressing against the leg. The right foot and ankle were then wrapped with Kerlix. The right foot and ankle were then wrapped with an Maxwell bandage. Neurovascular status was assessed at the end of the procedure and was deemed intact to the right lower extremity. The patient tolerated the anesthesia procedure well and was transported to the PACU with vital signs stable and neurovascular status intact to the right lower extremity. After period of postoperative monitoring, the patient will be transferred back to the general medical floor. At this time, I believe that the remaining tissues are healthy with no signs of necrosis. We will await further recommendation for IV antibiotics versus oral antibiotics per the infectious disease team. If patient is feeling well and patient can get home on oral antibiotics, we will likely discharge the patient t omorrow, April 13 on a home wound VAC with antibiotic therapy with follow up with me in 1 week and follow up with ID per their recommendations. Grafts/Implants Used: Integra bilayer graft. - Admit VTE Documentation VTE Present on Admission: No
[2019-04-12 19:41] LABS: M R Staph aureus DNA By PCR Negative (Negative); Probe Check PASS; Specimen Processing Control PASS; Staph aureus DNA By PCR POSITIVE (Negative)
[2019-04-13] MEDS: HYDROcodone Bitartrate/Apap 5/325 Tablet PO ×6 (00:07→23:26)
[2019-04-13 02:53] VITALS: BP 110/69; PULSE 88; RESP 16; TEMP 36.9; O2SAT 95
[2019-04-13] MEDS: Cefazolin 2 GM in 0.9% Normal Saline 100 ML IV ×3 (05:21→21:54)
[2019-04-13] MEDS: Enoxaparin 40 MG/0.4 ML Syringe SC (05:21)
[2019-04-13 06:08] LABS: Basophil# 0.08 X10^3/uL; Basophil% 0.7 % (0-1); Eosinophil# 0.62 X10^3/uL; Eosinophils% 5.6 % (0-5); Hematocrit 36.3 % (40-54); Hemoglobin 11.9 g/dL (13.0-16.5); Lymphocyte % 19.9 % (19-41); Mean Corp Hgb Conc 32.8 g/dL (32-36); Mean Corpuscular Volume 94.5 fL (80-94); Mean Platelet Vol. 9.1 fl (6.2-12.0); Monocyte# 1.15 X10^3/uL; Monocyte% 10.4 % (0-10); NRBC Flagged by Analyzer 0 % (0-5); Neutrophil # 6.97 X10^3/uL (2.7-7.7); Neutrophil % 62.9 % (47-70); Platelet Count 395 K/mm3 (150-450); RBC Distribution Width CV 11.5 % (11.6-14.6); RBC Distribution Width SD 38.9 fl (35.1-43.9); Red Blood Count 3.84 M/mm3 (4.6-6.2); White Blood Count 11.1 K/mm3 (4.4-11.0)
[2019-04-13 06:40] LABS: Anion Gap 4 (5-15); BUN 14 mg/dL (7-18); BUN/Creat Ratio 13.3 RATIO (10-20); Calcium,Total 8.6 mg/dL (8.5-10.1); Chloride 103 mmol/L (98-107); Creatinine, Serum 1.05 mg/dL (0.70-1.30); EST Glomerular Filtration Rate 80 mL/min (>60); Est Glom Filt Rate - Afr Amer 96 mL/min (>60); Estimated Creatinine Clearance 93.41 ml/min; Glucose 93 mg/dL (74-106); Magnesium 2.1 mg/dL (1.6-2.6); Potassium 4.3 mmol/L (3.5-5.1); Sodium Level 139 mmol/L (136-145)
--- NOTE | 2019-04-13 08:28 | PN_ITS ---
Patient Problems: Active and Suspected Problems Postoperative infection (Acute) Cellulitis of right foot (Acute) Reason for Visit: Follow-up Postoperative infection involving the right foot Subjective: Patient underwent repeat incision and drainage by podiatry on 04/12/2019. Objective: GENERAL: cooperative HEENT: Atraumatic; EYES; Anicteric, Normal Conjunctiva NECK; supple, normal thyroid, RESPIRATORY: Diminished to auscultation CARDIOVASCULAR: Regular S1 S2, GI: soft, normoactive bowel sounds, : No Renal angle tenderness; EXTREMITIES: No edema, no clubbing, MUSCULOSKELETAL:right foot in surgical dressing NEURO: Awake; no lateralizing signs. SKIN: No Rash PSYCH; Flat affect Vitals/I&O's: Vital Signs Temp Pulse Resp BP Pulse Ox 98.5 F 88 16 110/69 95 04/13/19 02:53 04/13/19 02:53 04/13/19 02:53 04/13/19 02:53 04/13/19 02:53 Oxygen Delivery Method Room Air Weight: 90.9 kg Body Mass Index (BMI) 27.1 Intake and Output for Last 24 Hours 04/11/19 04/12/19 04/13/19 23:59 23:59 23:59 Intake Total 2612.25 / 3012.25 1277.25 / 1976.25 2210 / 2210 Output Total 500 / 1000 500 / 1150 1100 / 1100 Balance 2111. / 2011. 777.25 / 827.25 1110 / 1110 Microbiology Past 72 Hours 04/09/19 Unknown Biopsy - Ankle Gram Stain - Final 04/09/19 Unknown Biopsy - Ankle Wound Culture - Final Staphylococcus aureus 04/09/19 Unknown Biopsy - Ankle Anaerobic Culture - Preliminary Checking for anaerobes, further studies to follow. Laboratory Results 04/12/19 17:17: S.aureus Protein A PCR POSITIVE H, MRSA (PCR) Negative 04/13/19 05:35: WBC 11.1 H, RBC 3.84 L, Hgb 11.9 L, Hct 36.3 L, MCV 94.5 H, MCH 31.0, MCHC 32.8, RDW Std Deviation 38.9, RDW Coeff of Dona 11.5 L, Plt Count 395, MPV 9.1, Immature Gran % (Auto) 0.500, Neut % (Auto) 62.9, Lymph % (Auto) 19.9, Barry % (Auto) 10.4 H, Eos % (Auto) 5.6 H, Baso % (Auto) 0.7, Absolute Neuts (auto) 7.0, Absolute Lymphs (auto) 2.20, Nucleated RBC % 0 04/13/19 05:35: Sodium 139, Potassium 4.3, Chloride 103, Carbon Dioxide 32.0, Anion Gap 4 L, BUN 14, Creatinine 1.05, Estim Creat Clear Calc 93.41, Est GFR (MDRD) Af Amer 96, Est GFR (MDRD) Non-Af 80, BUN/Creatinine Ratio 13.3, Glucose 93, Calcium 8.6, Magnesium 2.1 Current Medications Acetaminophen (Tylenol) 650 mg PO Q4H PRN PRN PRN Reason: HEADACHE/FEVER (T>100F) Last Admin: 04/11/19 02:06 Dose: 650 mg Documented by: Hydrocodone Bitart/Acetaminophen ([place] 5mg-325mg) 1 - 2 tablet PO Q4H PRN PRN PRN Reason: Pain Score 1-10/10 Last Admin: 04/13/19 05:21 Dose: 2 tablet Documented by: Docusate Sodium (Colace) 200 mg PO BID PRN PRN PRN Reason: Constipation Enoxaparin Sodium (Lovenox) 40 mg SC DAILY@0600 [facility] Last Admin: 04/13/19 05:21 Dose: 40 mg Documented by: Hydromorphone HCl (Dilaudid Inj) 1 - 1.5 mg IV Q2H PRN PRN PRN Reason: Pain Score 6-10/10 Last Admin: 04/12/19 13:18 Dose: 1 mg Documented by: Sodium Chloride () 250 mls @ 15 mls/hr IV .[id number] PRN PRN Reason: Saline Flush Last Admin: 04/13/19 00:10 Dose: 15 mls/hr Documented by: Cefazolin Sodium 2 gm/ Sodium (Chloride) 110 mls @ 150 mls/hr IV Q8 ALEKSANDR Last Infusion: 04/13/19 06:33 Dose: Infused Documented by: Ondansetron HCl (Zofran) 4 mg IV Q6H PRN PRN PRN Reason: NAUSEA/VOMITING Sodium Chloride () 10 - 40 ml IV UD PRN PRN Reason: SALINE FLUSH Last Admin: 04/12/19 13:18 Dose: 10 ml Documented by: Medical Necessity - Tobacco Use Smoking Status: Never smoker Tobacco Use: Non-smoker Assessment/Plan All Active Problems Closed right calcaneal fracture (Acute) Postoperative infection (Acute) Cellulitis of right foot (Acute) Patient is a 48-year-old gentleman admitted with postoperative infection involving the right foot. Patient underwent incision and drainage of abscess by podiatry on 03/30/2019. Cultures came back positive for MSSA 1. Postoperative infection involving the right foot ?Patient underwent incision and drainage of abscess right foot washout podiatry on 04/09/2019. Cultures came back positive for MSSA patient currently being managed with Ancef ?04/13/2019: Patient was seen in consultation by infectious disease recommendation is for patient to be discharged on doxycycline for 6 weeks given the proximity of the abscess to the bone to cover for possible osteomyelitis. Patient also underwent second incision and drainage by podiatry medicine. 2. Status post right calcaneal fracture 3. Alkaline phosphatase ~thought to be secondary from bone. Patient will need follow-up by PCP 4. DVT prophylaxis ~SC enoxaparin Code Visit Inpatient E&M: 22732 Subs Hosp L2
[2019-04-13 08:53] VITALS: BP 108/68; PULSE 88; RESP 18; TEMP 36.9; O2SAT 95
--- NOTE | 2019-04-13 10:34 | CASEMGMT ---
BILL HUFF updated that patient will need HHC at discharge. List provided to patient and he would like [facility]. Referral made to [facility] and they are able to accept the patient. BILL HUFF updated that patient.
[2019-04-13 13:53] VITALS: BP 123/65; PULSE 87; RESP 18; TEMP 37; O2SAT 98
--- NOTE | 2019-04-13 19:12 | PCM.DC.ORTHO ---
Discharge Diet: No Restrictions Discharge Activity: May Not Drive, May Not Shower, Use Walker, Use Crutches Weight Bearing Status: No weight bearing Keep extremity elevated above heart level: Right Leg Call your doctor if your incision/area has: Increased Pain/ Swelling, Increased Redness Call your doctor if you observe: Fever of 101 or Higher, Shortness of breath, Swelling in the ankles, Chest pain, Increased palpitations (irregular heartbeat), Calf discomfort, Uncontrolled pain Cleanse incision/area with: Keep Dressing Clean & Dry Additional Dressing/Incision Instructions:: Keep dressing clean, dry, intact to the right foot and leg. Do not get dressing wet. No showering. If you get the dressing wet, call the office immediately. Elevate right foot above level of heart at all times. Take medications as prescribed. No walking or standing on right foot. Use crutches for assistance. Allergies/Adverse Reactions: Allergies No Known Allergies Allergy (Verified 03/24/19 09:10) Medications to take at Discharge Aspirin [Aspirin, Baby] 81 mg PO DAILY 04/09/19 Doxycycline 100 mg PO BID 40 Days #80 cap 04/12/19 The following prescriptions were given: Doxycycline 100 mg PO BID 40 Days #80 cap Transmission Status: Received by [facility] Primary Care Physician: Brendan Granado DO [Primary Care Provider] - Please follow up with your Primary Care Physician in: 1 week for further evaluation Test Results: Test results from this visit will be discussed in further detail at your follow-up appointment, if applicable. Please Follow Up With: Kofi Cisneros DPM When: 1 week Please Follow Up With: Hadley Posadas MD When: 4 weeks Proposed Discharge Date: 04/14/19
--- NOTE | 2019-04-13 19:17 | PCM.DC.SUM ---
Discharge Date and Diagnosis Date of Admission: 04/09/19 Date of Discharge: 04/15/19 - Primary Discharge Diagnosis Active and Suspected Problems Postoperative infection (Acute) Cellulitis of right foot (Acute) Hospital Course and Treatment Imaging Results: x-ray of right foot taken on 04/09/19: No evidence of acute osteomyelitis present in the right calcaneus. Soft tissue swelling noted on the lateral aspect of the right foot. #1 Dr. Hadley Posadas from infectious disease for antibiotic management 2. Dr. Demarco, hospitalist, for medical management Operations: - - #1. Right foot incision and drainage with wound debridement and application of wound VAC on n 04/09/19 2. Right foot incision and drainage with wound debridement, application of graft, application of wound VAC on 04/12/19 Procedures: Peg tube placement Summary of Care Provided: Patient is a 48-year-old male who had surgery approximately 2 weeks ago for excision of avulsion of calcaneal fracture of the right calcaneus. Patient saw me in the office on April 09 there was revealed that there was a significant postoperative infection. At that time, I admitted the patient to the the hospital and underwent emergency incision and drainage with washout of right foot wound on 04/09/19. Wound cultures were taken at that time growing MSSA. A wound VAC was placed on the right foot wound. Infectious disease was consulted for antibiotic coverage along with the hospitalist was consulted for medical management. Patient was started on broad-spectrum IV antibiotics which were switched to IV Ancef due to the coverage and cultures. After removing the wound VAC on April 12, I determined that further washout with application of a graft to the surgical site and the wound VAC would assist the patient to heal faster. A home wound VAC was ordered. The wound VAC will be kept clean, dry, intact for 1 week and the patient will follow-up in my office in 1 week. I will take care of the wound as an outpatient at this time. Dr. Posadas from infectious disease states that the patient could go home on an oral course of doxycycline. Patient is agreeable to the current treatment plan. Patient is happy with his overall progress. Prescription for Kamuela was given to the patient to take on an outpatient basis. Patient is a follow-up appointment with me on April 19 for further evaluation. Patient does not need home health care at this time. Patient will keep the wound VAC clean, dry, intact for 1 week until he follows up with me. Subjective: Patient was seen at bedside resting comfortably. Patient denies acute pain in his right foot and ankle at this time. Patient states that the pain is well controlled with oral pain medications. Patient states that this is the best he has felt since his admission, and he believes that he is ready to go home. is present at bedside during entire visit. Currently, patient denies fever, chills, nausea, vomiting, shortness of breath, chest pain. Objective: Right lower extremity physical exam: Dressing is clean, dry, intact to the right lower extremity with no evidence of strikethrough noted. Light sensation is intact to the digits of the right foot. Patient is able to move the digits of the right foot in a pain-free motion. Capillary fill time is less than 3 seconds to the digits. Musculoskeletal is deferred at this time Wound VAC is placed on the right foot with adequate seal and suction noted 125 mmHg low continuous. Less than 50 mL of serosanguineous drainage in the wound VAC. - Physical Exam Vitals/I&O's: Vital Signs Temp Pulse Resp BP Pulse Ox 98.6 F 87 18 123/65 H 98 04/13/19 13:53 04/13/19 13:53 04/13/19 13:53 04/13/19 13:53 04/13/19 13:53 Oxygen Delivery Method Room Air Weight: 90.9 kg Body Mass Index (BMI) 27.1 Intake and Output for Last 24 Hours 04/11/19 04/12/19 04/13/19 23:59 23:59 23:59 Intake Total 2612.25 / 3012.25 1277.25 / 3921.5 / 3921.5 Output Total 500 / 1000 500 / 1150 1425 / 1425 Balance 21106.08 / 777.25 / 827.25 2496.5 / 2496.5 General: Alert, Oriented x3, Cooperative, No apparent distress, Well developed, Well nourished HEENT: Atraumatic, PERRLA Neck: Supple, No JVD Lungs: Clear to auscultation, Normal air movement, No rhonchi, No wheeze, No rales Cardiovascular: Regular rate, Regular Rhythm, Normal S1, Normal S2 Abdomen: Bowel Sounds Present, Soft, Non Tender, Non-Distended Extremities: Capillary Refill Less than 3 Seconds, No Calf Tenderness Skin: Ulcer/ Wound - As described in operative report Musculoskeletal: No Tenderness to Palpation of Joints or Extremities Neurological: Sensory exam intact to light touch and pain Psych/Mental Status: Alert and oriented to time, place, person, mood and affect Microbiology Past 72 Hours 04/12/19 17:17 Wound - Aerobic & Anaerobic Swabs Gram Stain - Final 04/12/19 17:17 Wound - Aerobic & Anaerobic Swabs Wound Culture - Preliminary No growth-Final to follow 04/09/19 Unknown Biopsy - Ankle Gram Stain - Final 04/09/19 Unknown Biopsy - Ankle Wound Culture - Final Staphylococcus aureus 04/09/19 Unknown Biopsy - Ankle Anaerobic Culture - Final No anaerobic bacteria isolated. Laboratory Results 04/12/19 17:17: S.aureus Protein A PCR POSITIVE H, MRSA (PCR) Negative 04/13/19 05:35: WBC 11.1 H, RBC 3.84 L, Hgb 11.9 L, Hct 36.3 L, MCV 94.5 H, MCH 31.0, MCHC 32.8, RDW Std Deviation 38.9, RDW Coeff of Dona 11.5 L, Plt Count 395, MPV 9.1, Immature Gran % (Auto) 0.500, Neut % (Auto) 62.9, Lymph % (Auto) 19.9, [place] % (Auto) 10.4 H, Eos % (Auto) 5.6 H, Baso % (Auto) 0.7, Absolute Neuts (auto) 7.0, Absolute Lymphs (auto) 2.20, Nucleated RBC % 0 04/13/19 05:35: Sodium 139, Potassium 4.3, Chloride 103, Carbon Dioxide 32.0, Anion Gap 4 L, BUN 14, Creatinine 1.05, Estim Creat Clear Calc 93.41, Est GFR (MDRD) Af Amer 96, Est GFR (MDRD) Non-Af 80, BUN/Creatinine Ratio 13.3, Glucose 93, Calcium 8.6, Magnesium 2.1 Current Medications Acetaminophen (Tylenol) 650 mg PO Q4H PRN PRN PRN Reason: HEADACHE/FEVER (T>100F) Last Admin: 04/11/19 02:06 Dose: 650 mg Documented by: Hydrocodone Bitart/Acetaminophen (Kamuela 5mg-325mg) 1 - 2 tablet PO Q4H PRN PRN PRN Reason: Pain Score 1-1010 Last Admin: 04/13/19 18:36 Dose: 2 tablet Documented by: Docusate Sodium (Colace) 200 mg PO BID PRN PRN PRN Reason: Constipation Enoxaparin Sodium (Lovenox) 40 mg SC DAILY@0600 ALEKSANDR Last Admin: 04/13/19 05:21 Dose: 40 mg Documented by: Hydromorphone HCl (Dilaudid Inj) 1 - 1.5 mg IV Q2H PRN PRN PRN Reason: Pain Score 6-1010 Last Admin: 04/12/19 13:18 Dose: 1 mg Documented by: Sodium Chloride () 250 mls @ 15 mls/hr IV .[id number] PRN PRN Reason: Saline Flush Last Infusion: 04/13/19 16:16 Dose: Infused Documented by: Cefazolin Sodium 2 gm/ Sodium (Chloride) 110 mls @ 150 mls/hr IV Q8 ALEKSANDR Last Infusion: 04/13/19 14:40 Dose: Infused Documented by: Ondansetron HCl (Zofran) 4 mg IV Q6H PRN PRN PRN Reason: NAUSEA/VOMITING Sodium Chloride () 10 - 40 ml IV UD PRN PRN Reason: SALINE FLUSH Last Admin: 04/12/19 13:18 Dose: 10 ml Documented by: Discharge Diet: No Restrictions Discharge Activity: May Not Drive, May Not Shower, Use Walker, Use Crutches Weight Bearing Status: No weight bearing Keep extremity elevated above heart level: Right Leg Call your doctor if your incision/area has: Increased Pain/ Swelling, Increased Redness Call your doctor if you observe: Fever of 101 or Higher, Shortness of breath, Swelling in the ankles, Chest pain, Increased palpitations (irregular heartbeat), Calf discomfort, Uncontrolled pain Cleanse incision/area with: Keep Dressing Clean & Dry Additional Dressing/Incision Instructions:: Keep dressing clean, dry, intact to the right foot and leg. Do not get dressing wet. No showering. If you get the dressing wet, call the office immediately. Elevate right foot above level of heart at all times. Take medications as prescribed. No walking or standing on right foot. Use crutches for assistance. Home Medications: Medications to take at Discharge Aspirin [Aspirin, Baby] 81 mg PO DAILY 04/09/19 Doxycycline 100 mg PO BID 40 Days #80 cap 04/12/19 Following Prescrptions Were Given to Patient: Doxycycline 100 mg PO BID 40 Days #80 cap Transmission Status: Received by [facility] Primary Care Physician: Brendan Granado DO [Primary Care Provider] - Please follow up with your Primary Care Physician in: 1 week for further evaluation Please Follow Up With: Kofi Cisneros DPM When: 1 week Please Follow Up With: Hadley Posadas MD When: 4 weeks Disposition: Home Minutes spent on discharge:: 30 Patient Condition:: Good Medical Necessity - Tobacco Use Smoking Status: Never smoker Tobacco Use: Non-smoker Meaningful Use Info Meaningful Use Diagnoses (Choose all that apply): None applicable Code Visit Inpatient E&M: 85646 Disch Hosp
[2019-04-13 19:57] VITALS: BP 114/71; PULSE 88; RESP 18; TEMP 36.5; O2SAT 93
[2019-04-13] MEDS: 0.9% Saline Lock 10 ML Syringe IV ×2 (21:57→23:25)
[2019-04-14 02:28] VITALS: BP 109/69; PULSE 65; RESP 18; TEMP 36.6; O2SAT 97
[2019-04-14] MEDS: HYDROcodone Bitartrate/Apap 5/325 Tablet PO ×5 (05:30→22:22)
[2019-04-14] MEDS: Cefazolin 2 GM in 0.9% Normal Saline 100 ML IV ×3 (05:31→21:18)
[2019-04-14] MEDS: 0.9% Saline Lock 10 ML Syringe IV ×2 (05:31→13:37)
[2019-04-14] MEDS: Enoxaparin 40 MG/0.4 ML Syringe SC (05:31)
[2019-04-14 06:05] LABS: Absolute Lymphocyte Count 2.52 X10^3/uL (0.83-4.51); Absolute Neutrophil Count 3.3 X10^3/uL (2.0-7.7); Basophil# 0.08 X10^3/uL; Eosinophil# 0.88 X10^3/uL; Eosinophils% 11.3 % (0-5); Hemoglobin 11.9 g/dL (13.0-16.5); Lymphocyte # 2.52 X10^3/ul (4.0); Lymphocyte % 32.4 % (19-41); Mean Corp Hgb Conc 33.1 g/dL (32-36); Mean Corpuscular Hgb 31.3 pg (27.0-32.0); Mean Corpuscular Volume 94.7 fL (80-94); Mean Platelet Vol. 9.2 fl (6.2-12.0); Monocyte# 0.92 X10^3/uL; Monocyte% 11.8 % (0-10); NRBC Flagged by Analyzer 0 % (0-5); Neutrophil # 3.33 X10^3/uL (2.7-7.7); Neutrophil % 42.9 % (47-70); Platelet Count 388 K/mm3 (150-450); RBC Distribution Width CV 11.7 % (11.6-14.6); RBC Distribution Width SD 40.1 fl (35.1-43.9); White Blood Count 7.8 K/mm3 (4.4-11.0)
[2019-04-14 06:29] LABS: Anion Gap 5 (5-15); BUN 16 mg/dL (7-18); BUN/Creat Ratio 15.8 RATIO (10-20); Calcium,Total 8.7 mg/dL (8.5-10.1); Chloride 104 mmol/L (98-107); Creatinine, Serum 1.01 mg/dL (0.70-1.30); EST Glomerular Filtration Rate 83 mL/min (>60); Est Glom Filt Rate - Afr Amer 101 mL/min (>60); Estimated Creatinine Clearance 97.11 ml/min; Glucose 93 mg/dL (74-106); Potassium 3.9 mmol/L (3.5-5.1); Sodium Level 140 mmol/L (136-145)
--- NOTE | 2019-04-14 07:48 | PN_ITS ---
Patient Problems: Active and Suspected Problems Postoperative infection (Acute) Cellulitis of right foot (Acute) Reason for Visit: Follow-up Postoperative infection involving the right foot Subjective: Awaiting the wound VAC prior to patient being discharged. Objective: GENERAL: cooperative HEENT: Atraumatic; EYES; Anicteric, Normal Conjunctiva NECK; supple, normal thyroid, RESPIRATORY: Diminished to auscultation CARDIOVASCULAR: Regular S1 S2, GI: soft, normoactive bowel sounds, : No Renal angle tenderness; EXTREMITIES: No edema, no clubbing, MUSCULOSKELETAL:right foot in surgical dressing NEURO: Awake; no lateralizing signs. SKIN: No Rash PSYCH; Flat affect Vitals/I&O's: Vital Signs Temp Pulse Resp BP Pulse Ox 97.8 F 65 18 109/69 97 04/14/19 02:28 04/14/19 02:28 04/14/19 02:28 04/14/19 02:28 04/14/19 02:28 Oxygen Delivery Method Room Air Weight: 90.9 kg Body Mass Index (BMI) 27.1 Intake and Output for Last 24 Hours 04/12/19 04/13/19 04/14/19 23:59 23:59 23:59 Intake Total 1277.25 / 1977.25 4031.5 / 4031.5 610 / 610 Output Total 500 / 1150 1425 / 1425 350 / 350 Balance 777.25 / 827.25 2606.5 / 2606.5 260 / 260 Microbiology Past 72 Hours 04/12/19 17:17 Wound - Aerobic & Anaerobic Swabs Gram Stain - Final 04/12/19 17:17 Wound - Aerobic & Anaerobic Swabs Wound Culture - Preliminary No growth-Final to follow 04/09/19 Unknown Biopsy - Ankle Gram Stain - Final 04/09/19 Unknown Biopsy - Ankle Wound Culture - Final Staphylococcus aureus 04/09/19 Unknown Biopsy - Ankle Anaerobic Culture - Final No anaerobic bacteria isolated. Laboratory Results 04/14/19 05:18: WBC 7.8, RBC 3.80 L, Hgb 11.9 L, Hct 36.0 L, MCV 94.7 H, MCH 31.3, MCHC 33.1, RDW Std Deviation 40.1, RDW Coeff of Dona 11.7, Plt Count 388, MPV 9.2, Immature Gran % (Auto) 0.600, Neut % (Auto) 42.9 L, Lymph % (Auto) 32.4, [place] % (Auto) 11.8 H, Eos % (Auto) 11.3 H, Baso % (Auto) 1.0, Absolute Neuts (auto) 3.3, Absolute Lymphs (auto) 2.52, Nucleated RBC % 0 04/14/19 05:18: Sodium 140, Potassium 3.9, Chloride 104, Carbon Dioxide 31.0, Anion Gap 5, BUN 16, Creatinine 1.01, Estim Creat Clear Calc 97.11, Est GFR (MDRD) Af Amer 101, Est GFR (MDRD) Non-Af 83, BUN/Creatinine Ratio 15.8, Glucose 93, Calcium 8.7 Current Medications Acetaminophen (Tylenol) 650 mg PO Q4H PRN PRN PRN Reason: HEADACHE/FEVER (T>100F) Last Admin: 04/11/19 02:06 Dose: 650 mg Documented by: Hydrocodone Bitart/Acetaminophen ([place] 5mg-325mg) 1 - 2 tablet PO Q4H PRN PRN PRN Reason: Pain Score 1-10/10 Last Admin: 04/14/19 05:30 Dose: 2 tablet Documented by: Docusate Sodium (Colace) 200 mg PO BID PRN PRN PRN Reason: Constipation Enoxaparin Sodium (Lovenox) 40 mg SC DAILY@0600 [facility] Last Admin: 04/14/19 05:31 Dose: 40 mg Documented by: Hydromorphone HCl (Dilaudid Inj) 1 - 1.5 mg IV Q2H PRN PRN PRN Reason: Pain Score 6-10/10 Last Admin: 04/12/19 13:18 Dose: 1 mg Documented by: Sodium Chloride () 250 mls @ 15 mls/hr IV .[id number] PRN PRN Reason: Saline Flush Last Infusion: 04/13/19 16:16 Dose: Infused Documented by: Cefazolin Sodium 2 gm/ Sodium (Chloride) 110 mls @ 150 mls/hr IV Q8 ALEKSANDR Last Infusion: 04/14/19 06:21 Dose: Infused Documented by: Ondansetron HCl (Zofran) 4 mg IV Q6H PRN PRN PRN Reason: NAUSEA/VOMITING Sodium Chloride () 10 - 40 ml IV UD PRN PRN Reason: SALINE FLUSH Last Admin: 04/14/19 05:31 Dose: 10 ml Documented by: Medical Necessity - Tobacco Use Smoking Status: Never smoker Tobacco Use: Non-smoker Assessment/Plan All Active Problems Closed right calcaneal fracture (Acute) Postoperative infection (Acute) Cellulitis of right foot (Acute) Patient is a 48-year-old gentleman admitted with postoperative infection involving the right foot. Patient underwent incision and drainage of abscess by podiatry on 03/30/2019. Cultures came back positive for MSSA 1. Postoperative infection involving the right foot ?Patient underwent incision and drainage of abscess right foot washout podiatry on 04/09/2019. Cultures came back positive for MSSA patient currently being managed with Ancef ?04/13/2019: Patient was seen in consultation by infectious disease recommen dation is for patient to be discharged on doxycycline for 6 weeks given the proximity of the abscess to the bone to cover for possible osteomyelitis. Patient also underwent second incision and drainage by podiatry medicine. ?04/14/2019; patient awaiting wound VAC prior to discharge 2. Status post right calcaneal fracture 3. Alkaline phosphatase ~thought to be secondary from bone. Patient will need follow-up by PCP 4. DVT prophylaxis ~SC enoxaparin Code Visit Inpatient E&M: 63726 Subs Hosp L2
[2019-04-14 08:05] VITALS: BP 128/73; PULSE 72; RESP 18; TEMP 36.6; O2SAT 95
[2019-04-14 18:07] VITALS: BP 119/69; PULSE 85; RESP 16; TEMP 36.7; O2SAT 95
[2019-04-14 22:00] VITALS: BP 118/78; PULSE 65; RESP 16; TEMP 36.6; O2SAT 97
[2019-04-15] MEDS: HYDROcodone Bitartrate/Apap 5/325 Tablet PO ×2 (03:13→09:55)
[2019-04-15 03:25] VITALS: BP 118/78; PULSE 72; RESP 16; TEMP 36.8; O2SAT 95
[2019-04-15 05:37] LABS: Basophil# 0.09 X10^3/uL; Basophil% 1.2 % (0-1); Eosinophil# 0.73 X10^3/uL; Eosinophils% 9.5 % (0-5); Hematocrit 36.3 % (40-54); Hemoglobin 12.1 g/dL (13.0-16.5); Lymphocyte % 27.4 % (19-41); Mean Corp Hgb Conc 33.3 g/dL (32-36); Mean Corpuscular Hgb 31.4 pg (27.0-32.0); Mean Corpuscular Volume 94.3 fL (80-94); Mean Platelet Vol. 9.2 fl (6.2-12.0); Monocyte% 9.1 % (0-10); NRBC Flagged by Analyzer 0 % (0-5); Neutrophil # 4.01 X10^3/uL (2.7-7.7); Neutrophil % 52.3 % (47-70); Platelet Count 373 K/mm3 (150-450); RBC Distribution Width CV 11.6 % (11.6-14.6); RBC Distribution Width SD 39.6 fl (35.1-43.9); Red Blood Count 3.85 M/mm3 (4.6-6.2); White Blood Count 7.7 K/mm3 (4.4-11.0)
[2019-04-15] MEDS: Enoxaparin 40 MG/0.4 ML Syringe SC (05:45)
[2019-04-15] MEDS: Cefazolin 2 GM in 0.9% Normal Saline 100 ML IV (05:45)
[2019-04-15 05:56] LABS: Anion Gap 4 (5-15); BUN 14 mg/dL (7-18); BUN/Creat Ratio 15.5 RATIO (10-20); Calcium,Total 8.7 mg/dL (8.5-10.1); Chloride 106 mmol/L (98-107); EST Glomerular Filtration Rate 95 mL/min (>60); Est Glom Filt Rate - Afr Amer 114 mL/min (>60); Estimated Creatinine Clearance 108.98 ml/min; Glucose 95 mg/dL (74-106); Potassium 4.1 mmol/L (3.5-5.1); Sodium Level 139 mmol/L (136-145)
--- NOTE | 2019-04-15 07:58 | PN_ITS ---
Patient Problems: Active and Suspected Problems Postoperative infection (Acute) Cellulitis of right foot (Acute) Reason for Visit: Follow-up Postoperative infection involving the right foot Subjective: Patient awaiting procurement of geoffrey wound VAC prior to discharge Objective: GENERAL: cooperative HEENT: Atraumatic; EYES; Anicteric, Normal Conjunctiva NECK; supple, normal thyroid, RESPIRATORY: Diminished to auscultation CARDIOVASCULAR: Regular S1 S2, GI: soft, normoactive bowel sounds, : No Renal angle tenderness; EXTREMITIES: No edema, no clubbing, MUSCULOSKELETAL:right foot in surgical dressing NEURO: Awake; no lateralizing signs. SKIN: No Rash PSYCH; Flat affect Vitals/I&O's: Vital Signs Temp Pulse Resp BP Pulse Ox 98.2 F 72 16 118/78 95 04/15/19 03:25 04/15/19 03:25 04/15/19 03:25 04/15/19 03:25 04/15/19 03:25 Oxygen Delivery Method Room Air Weight: 90.9 kg Body Mass Index (BMI) 27.1 Intake and Output for Last 24 Hours 04/13/19 04/14/19 04/15/19 23:59 23:59 23:59 Intake Total 4031.5 / 4031.5 1680 / 2080 747.75 / 747.75 Output Total 1425 / 1425 350 / 350 Balance 2606.5 / 2606.5 1330 / 1730 747.75 / 747.75 Microbiology Past 72 Hours 04/12/19 17:17 Wound - Aerobic & Anaerobic Swabs Gram Stain - Final 04/12/19 17:17 Wound - Aerobic & Anaerobic Swabs Wound Culture - Preliminary No growth-Final to follow 04/09/19 Unknown Biopsy - Ankle Gram Stain - Final 04/09/19 Unknown Biopsy - Ankle Wound Culture - Final Staphylococcus aureus 04/09/19 Unknown Biopsy - Ankle Anaerobic Culture - Final No anaerobic bacteria isolated. Laboratory Results 04/15/19 05:18: WBC 7.7, RBC 3.85 L, Hgb 12.1 L, Hct 36.3 L, MCV 94.3 H, MCH 31.4, MCHC 33.3, RDW Std Deviation 39.6, RDW Coeff of Dona 11.6, Plt Count 373, MPV 9.2, Immature Gran % (Auto) 0.500, Neut % (Auto) 52.3, Lymph % (Auto) 27.4, [place] % (Auto) 9.1, Eos % (Auto) 9.5 H, Baso % (Auto) 1.2 H, Absolute Neuts (auto) 4.0, Absolute Lymphs (auto) 2.10, Nucleated RBC % 0 04/15/19 05:18: Sodium 139, Potassium 4.1, Chloride 106, Carbon Dioxide 29.0, Anion Gap 4 L, BUN 14, Creatinine 0.90, Estim Creat Clear Calc 108.98, Est GFR (MDRD) Af Amer 114, Est GFR (MDRD) Non-Af 95, BUN/Creatinine Ratio 15.5, Glucose 95, Calcium 8.7 Current Medications Acetaminophen (Tylenol) 650 mg PO Q4H PRN PRN PRN Reason: HEADACHE/FEVER (T>100F) Last Admin: 04/11/19 02:06 Dose: 650 mg Documented by: Hydrocodone Bitart/Acetaminophen ([place] 5mg-325mg) 1 - 2 tablet PO Q4H PRN PRN PRN Reason: Pain Score 1-10/10 Last Admin: 04/15/19 03:13 Dose: 2 tablet Documented by: Docusate Sodium (Colace) 200 mg PO BID PRN PRN PRN Reason: Constipation Enoxaparin Sodium (Lovenox) 40 mg SC DAILY@0600 [facility] Last Admin: 04/15/19 05:45 Dose: 40 mg Documented by: Hydromorphone HCl (Dilaudid Inj) 1 - 1.5 mg IV Q2H PRN PRN PRN Reason: Pain Score 6-10/10 Last Admin: 04/12/19 13:18 Dose: 1 mg Documented by: Sodium Chloride () 250 mls @ 15 mls/hr IV .[id number] PRN PRN Reason: Saline Flush Last Infusion: 04/15/19 06:29 Dose: 15 mls/hr Documented by: Cefazolin Sodium 2 gm/ Sodium (Chloride) 110 mls @ 150 mls/hr IV Q8 ALEKSANDR Last Infusion: 04/15/19 06:29 Dose: Infused Documented by: Ondansetron HCl (Zofran) 4 mg IV Q6H PRN PRN PRN Reason: NAUSEA/VOMITING Sodium Chloride () 10 - 40 ml IV UD PRN PRN Reason: SALINE FLUSH Last Admin: 04/14/19 13:37 Dose: 10 ml Documented by: Medical Necessity - Tobacco Use Smoking Status: Never smoker Tobacco Use: Non-smoker Assessment/Plan All Active Problems Closed right calcaneal fracture (Acute) Postoperative infection (Acute) Cellulitis of right foot (Acute) Patient is a 48-year-old gentleman admitted with postoperative infection involving the right foot. Patient underwent incision and drainage of abscess by podiatry on 03/30/2019. Cultures came back positive for MSSA 1. Postoperative infection involving the right foot ?Patient underwent incision and drainage of abscess right foot washout podiatry on 04/09/2019. Cultures came back positive for MSSA patient currently being managed with Ancef ?04/13/2019: Patient was seen in consultation by infectious disease recom mendation is for patient to be discharged on doxycycline for 6 weeks given the proximity of the abscess to the bone to cover for possible osteomyelitis. Patient also underwent second incision and drainage by podiatry medicine. ?04/14/2019; patient awaiting wound VAC prior to discharge ?04/15/2019; Patient awaiting procurement of geoffrey wound VAC prior to discharge 2. Status post right calcaneal fracture 3. Alkaline phosphatase ~thought to be secondary from bone. Patient will need follow-up by PCP 4. DVT prophylaxis ~SC enoxaparin Code Visit Inpatient E&M: 58990 Subs Hosp L2
[2019-04-15 09:25] VITALS: BP 124/85; PULSE 84; RESP 18; TEMP 36.4; O2SAT 96
--- NOTE | 2019-04-17 15:22 | NURSING ---
LATE ENTRY - 04/15/191144 - DR PERRY TORRE PAGED FOR DC ORDER. 04/15/191244 - AWAITING RETURN CALL FROM DR TORRE. 04/15/19 1250 - RECEIVED CALL FROM [employer] DEVELOPER LETTING THIS NURSE KNOW THAT MD IS IN A SURGERY CASE @ THIS TIME. 04/15/191344 - RECEIVED CALL FROM DR TORRE, APOLOGIZING FOR THE WAIT, TO DC PT HOME. F/U WITH DR TORRE ON FRIDAY.
== END 2019-04-15 12:05 | disposition home or self-care (01) | DRG 857 ==
LOC: PCU 14:35 → MS3 15:20
PROVIDERS: Internal Medicine; Admitting Provider Podiatrist Foot & Ankle Surgery; Family Provider Family Medicine; PCP Family Medicine; Referring Provider Podiatrist Foot & Ankle Surgery; Visit Provider Internal Medicine
PROC: 0J9Q0ZZ Drainage of Right Foot Subcutaneous Tissue and Fascia, Open Approach (ICD-10-PCS; principal; 2019-04-09 12:50)
PROC: 0JBQ0ZZ Excision of Right Foot Subcutaneous Tissue and Fascia, Open Approach (ICD-10-PCS; principal; 2019-04-12 16:00)
DX: T81.42XA Infection following a procedure, deep incisional surgical site, initial encounter (principal); L02.611 Cutaneous abscess of right foot; L03.115 Cellulitis of right lower limb; Y83.8 Other surgical procedures as the cause of abnormal reaction of the patient, or of later complication, without mention of misadventure at the time of the procedure; B95.61 Methicillin susceptible Staphylococcus aureus infection as the cause of diseases classified elsewhere
CPT/HCPCS: 36415; 73630; 80048; 80053; 80202; 83735; 85025; 85652; 86140; 87015; 87070; 87075; 87077; 87102; 87116; 87186; 87205; 87206; 87640; 97802; J7040; J7050; J7120; A4216; J2405

== ENCOUNTER 2023-01-13 12:57 | Inpatient (IN) | payer OTHER, SELFPAY ==
[2023-01-13 12:59] VITALS: BP 113/85; PULSE 116; RESP 18; TEMP 36.6; O2SAT 97; BMI 27.3
--- NOTE | 2023-01-13 13:01 | EKG12_ITS ---
Test Reason : CP Blood Pressure : / mmHG Vent. Rate : 104 BPM Atrial Rate : 104 BPM P-R Int : 190 ms QRS Dur : 110 ms QT Int : 368 ms P-R-T Axes : 044 -40 112 degrees QTc Int : 483 ms Sinus tachycardia with frequent Premature ventricular complexes and Fusion complexes Possible Left atrial enlargement Left axis deviation Minimal voltage criteria for LVH, may be normal variant ( Murray product ) Nonspecific T wave abnormality Confirmed by SANDEE JOHNSON, TRAE ([id number]), commissioning editor EVETTE REY ([id number]) on 01/17/2023 2:24:12 PM Referred By: Confirmed By:TRAE IGNACIO MD
--- NOTE | 2023-01-13 13:01 | RAD_ITS ---
STUDY: X-RAY CHEST REASON FOR EXAM: Male, 52 years old. Chest pain TECHNIQUE: Single AP portable view of the chest. COMPARISON: Comparison is made with prior study March 25, 2019. FINDINGS: Mild degree of vascular congestion with superimposed bibasilar atelectasis. There is no demonstrated pleural abnormality. Normal size heart. Normal mediastinum and audelia. Normal visualized pulmonary arteries. Normal visualized aortic arch and descending thoracic aorta. Normal visualized thoracic spine. Normal visualized ribs, clavicles, and shoulders. There is no demonstrated abnormality of the visualized soft tissue structures of the upper abdomen. RAD/Chest 1 View (Portable) IMPRESSION: Mild degree of vascular congestion with bibasilar atelectasis. Electronically Signed: Yvan Montano MD at 13:33 EDT ,
[2023-01-13 13:17] LABS: Absolute Lymphocyte Count 2.62 X10^3/uL (0.83-4.51); Absolute Neutrophil Count 5.1 X10^3/uL (2.0-7.7); Basophil# 0.11 X10^3/uL; Basophil% 1.2 % (0-1); Eosinophil# 0.58 X10^3/uL; Eosinophils% 6.2 % (0-5); Hemoglobin 14.3 g/dL (13.0-16.5); Lymphocyte # 2.62 X10^3/ul (0.83-4.51); Mean Corpuscular Hgb 33.6 pg (27.0-32.0); Mean Corpuscular Volume 98.6 fL (80-94); Monocyte# 0.93 X10^3/uL; Monocyte% 9.9 % (0-10); NRBC Flagged by Analyzer 0 % (0-5); Neutrophil # 5.07 X10^3/uL (2.7-7.7); Neutrophil % 54.3 % (47-70); Platelet Count 330 K/mm3 (150-450); RBC Distribution Width CV 12.9 % (11.6-14.6); RBC Distribution Width SD 45.9 fl (35.1-43.9); Red Blood Count 4.26 M/mm3 (4.6-6.2); White Blood Count 9.4 K/mm3 (4.4-11.0)
[2023-01-13 13:28] LABS: Anion Gap 5 (5-15); BUN 19 mg/dL (7-18); BUN/Creat Ratio 17.4 RATIO (10-20); Calcium,Total 8.9 mg/dL (8.5-10.1); Chloride 111 mmol/L (98-107); Creatinine, Serum 1.09 mg/dL (0.70-1.30); EST Glomerular Filtration Rate 75 mL/min (>60); Est Glom Filt Rate - Afr Amer 91 mL/min (>60); Estimated Creatinine Clearance 91.12 ml/min; Glucose 101 mg/dL (74-106); Potassium 5.1 mmol/L (3.5-5.1); Sodium Level 141 mmol/L (136-145); Troponin-I HS (w/2H Reflex) 60 pg/mL (3.0-78.0)
--- NOTE | 2023-01-13 14:10 | ED.VIS.CHEST ---
HPI History of Present Illness Chief Complaint: Chest Pain Informant: patient Onset/Context/Timing Onset: Yesterday Activity at onset: sudden Timing: Continuous Quality: Positive for Tightness Location: Substernal Worsened By: Exertion Relieved By: Nothing Associated Symptoms: Positive for Dyspnea and Palpitations; Negative for Nausea, Vomiting, Diaphoresis, Cough, Fever, Lightheadedness or Acid Reflux Narrative Narrative: Patient presents with chest pain that began yesterday. Patient states it began after eating dinner last night. Patient describes it as a tightness. Patient states it is over the substernal area. Patient states it is worse with exertion. Patient states it began rather suddenly. Patient admits to some shortness of breath and palpitations with this. Patient denies any nausea or vomiting. Patient denies any diaphoresis. Patient denies any cough or fever. Patient states he has never had a stress test done. Patient denies any risk factors for coronary artery disease. Patient does admit to some recent travel but denies any other PE risk factors. CVD Risk Factors: Negative for Hypertension, Diabetes, Hypercholesterolemia, Family History 1' </=55 or Smoking PE Risk Factors: Positive for Recent Travel/Surgery; Negative for Recent Immobilization, Prior DVT or PE, Cancer or OCP + Smoking + >/=35 PFSH PFSH Medical History no medical history no medical history Home Medications NK 01/13/23 [History Last Taken Unknown] Allergy/AdvReac Type Severity Reaction Status Date / Time No Known Allergies Allergy Verified 01/13/23 12:58 Surgical History Hx of appendectomy Hx of cholecystectomy S/P ORIF (open reduction internal fixation) fracture Social History Smoking Status: Never smoker ROS ROS ED Constitutional Constitutional ED: Denies chills or fever(s) Eyes Eyes: Denies blurry vision or change in vision ENT ENT ED: Denies rhinorrhea or sore throat Cardiovascular Cardiovascular: Reports chest pain and palpitations Respiratory/Chest Respiratory/Chest: Reports dyspnea; Denies cough Gastrointestinal Gastrointestinal: Denies abdominal pain, nausea or vomiting Genitourinary Genitourinary ED: Denies dysuria or hematuria Musculoskeletal Musculoskeletal: Denies back pain or neck pain Integumentary Denies abscess or rash Neurologic Neurologic: Denies headache(s) or weakness Allergic/Immunologic Allergic/Immunologic ED: Denies mouth swelling or urticaria EXAM Physical Exam Const Vital Signs: 01/13/23 12:59 01/13/23 14:12 01/13/23 16:58 Temperature 97.8 F Temperature Source Temporal Pulse Rate 116 H Respiratory Rate 18 Respiratory Effort Blood Pressure 113/85 H 115/88 H Blood Pressure Mean 94 97 Pulse Ox 97 Oxygen Delivery Method Room Air Room Air 01/13/23 17:00 01/13/23 17:37 01/13/23 18:00 Temperature Temperature Source Pulse Rate 96 105 H Respiratory Rate 16 18 Respiratory Effort Normal Non-Labored Blood Pressure 105/73 106/92 H Blood Pressure Mean 83 96 Pulse Ox 92 94 Oxygen Delivery Method Room Air Room Air Positive well nourished and well developed General Appearance ED: well developed and NAD HEENT Reports moist mucous membranes normocephalic and atraumatic Eyes PERRL and EOMs intact bilaterally Neck supple and no JVD Chest Wall palpation of chest normal Resp normal respiratory effort and clear to auscultation bilaterally Effort and Inspection: Negative for respiratory distress Cardio regular rate, regular rhythm and no murmurs GI normal to inspection, nondistended, normoactive bowel sounds, soft to palpation, non-tender and non-distended Extremity normal to inspection General Extremety ED: Negative for edema or tenderness General Extremity: Negative for edema Neuro oriented x3, CN's II-XII intact bilaterally and no sensory deficits noted Sensorium / Orientation: awake and alert Motor Exam: strength 5/5 throughout Psych mental status grossly normal Heart Score History: Moderately Suspicious ECG: Nonspecific Repolarization Age: >45 - <65 years Risk Factors: No Risk Factors Troponin: </= Normal Limit Score: 3 MDM MDM MDM Narrative Medical decision making narrative: Differential diagnosis includes cardiac dysrhythmia, cardiac ischemia, pulmonary embolism, pneumonia, pneumothorax, GERD, gastric ulcer, and anxiety. EKG will be obtained to assess for cardiac dysrhythmia and cardiac ischemia. Chest x-ray will be obtained to assess for pneumonia and pneumothorax. CBC will be obtained to assess for leukocytosis and anemia. Basic metabolic profile will be obtained to assess for electrolyte abnormality and renal function. High-sensitivity troponin will be obtained to assess for cardiac ischemia. D-dimer will be obtained to assess for pulmonary embolism. 2-hour repeat high-sensitivity troponin will be obtained to assess for ongoing cardiac ischemia. Lab Data Attestation: I reviewed the patient's lab results. Lab results narrative: CBC was reviewed and was essentially within normal limits. Basic metabolic profile was reviewed and was essentially within normal limits. High-sensitivity troponin was reviewed and was normal at 60. Repeat high-sensitivity troponin was normal at 62. D-dimer was reviewed and was elevated at 0.85. BNP was reviewed and was elevated at 491.0. Labs: Laboratory Results - last 24 hr 01/13/23 01/13/23 01/13/23 13:00 13:09 15:15 WBC 9.4 RBC 4.26 L Hgb 14.3 Hct 42.0 MCV 98.6 H MCH 33.6 H MCHC 34.0 RDW Std Deviation 45.9 H RDW Coeff of Dona 12.9 Plt Count 330 MPV 10.0 Immature Gran % (Auto) 0.400 Neut % (Auto) 54.3 Lymph % (Auto) 28.0 [place] % (Auto) 9.9 Eos % (Auto) 6.2 H Baso % (Auto) 1.2 H Absolute Neuts (auto) 5.1 Absolute Lymphs (auto) 2.62 Nucleated RBC % 0 D-Dimer Quant (PE/DVT) 0.85 H* Sodium 141 Potassium 5.1 Chloride 111 H Carbon Dioxide 25.0 Anion Gap 5 BUN 19 H Creatinine 1.09 Estim Creat Clear Calc 91.12 Est GFR (MDRD) Af Amer 91 Est GFR (MDRD) Non-Af 75 BUN/Creatinine Ratio 17.4 Glucose 101 Calcium 8.9 Troponin I High Sens 60 62 B-Natriuretic Peptide 491.0 H Radiography Chest X-Ray - ED: 1 View, Read by ED Physician, Read by Radiologist, CHF (Mild vascular congestion) and No Infiltrates Diagnostic Testing: Clinical Impression(s) from Imaging Studies Chest X-Ray 01/13/23 13:01 IMPRESSION: Mild degree of vascular congestion with bibasilar atelectasis. Electronically Signed: Yvan Montano MD at 13:33 EDT , Chest CTA 01/13/23 15:41 IMPRESSION: 1. No evidence for pulmonary embolism. 2. Cardiomegaly. 3. Probable pulmonary edema. 4. Pleural effusions with compressive atelectasis in both lower lobes. 5. Cannot exclude adenopathy. Electronically Signed: Jeff Huber MD at 17:14 EDT , Portable 1 view chest x-ray was obtained. On my independent interpretation, lung garza showed mild vascular congestion with bibasilar atelectasis. There is normal cardiac silhouette. Bony thorax is normal. There is no acute process noted. Radiologist also interpreted the x-ray and agrees. Because of the elevated D-dimer, CTA of the chest was obtained. There is no pulmonary embolism or aortic dissection. There are bilateral pleural effusions noted. There is probable pulmonary edema noted. This was interpreted by the radiologist and was also independently reviewed by myself. EKG Initial EKG: Attestation: I personally reviewed and interpreted this EKG as follows: Interpretation: Sinus Tachycardia (104 with frequent PVCs) and Non-Specific ST Changes (Left ventricular hypertrophy) Comments: EKG was obtained. On my independent interpretation, shows sinus tachycardia with a rate of 104. There are frequent PVCs noted. CA interval was normal at 190 ms. QRS interval was normal at 110 ms. QTc interval was slightly prolonged at 483 ms. There is left axis deviation at -40. There is evidence of left ventricular hypertrophy. There are nonspecific ST-T wave changes. Other than the frequent PVCs this is unchanged compared to previous EKG dated 03/25/2019 Prior EKG tracings: available for review Prior: Unchanged Management Discussion w/another healthcare provider: Hospitalist Treatment and Re-Evaluation :: Patient was given a dose of aspirin initially. Patient was advised of his findings. Patient was given a dose of Lasix. Patient was advised of the need for further evaluation. Case was discussed with the hospitalist. He will admit the patient to his service. Patient understood and was agreeable with the plan. All questions were answered. Discharge Plan Triage Chief Complaint: Chest Pain ED Provider: Cody Aceves Dx/Rx/DC Orders Clinical Impression: Congestive heart failure, Chest pain Prescriptions: No Action NK Primary Care Provider: Brendan Granado Referrals: Loy,Brendan, DO [Primary Care Provider] - Disposition Disposition: Acute Care Hospital [facility]
[2023-01-13] MEDS: Aspirin 81 MG TAB.CHEW 324 MG PO (14:41)
[2023-01-13 15:07] LABS: Reflex Troponin-HS? (from REC) Y
[2023-01-13 15:10] LABS: D-Dimer Quantitative (DVT/PE) 0.85 FEU/ug/m (0.27-0.49)
--- NOTE | 2023-01-13 15:41 | CT_ITS ---
EXAM: CT ANGIOGRAPHY CHEST WITHOUT AND WITH INTRAVENOUS CONTRAST CLINICAL INDICATION: Elevated D-dimer TECHNIQUE: Helically acquired angiography images were obtained of the chest without and with intravenous contrast. This CT exam was performed using one or more of the following dose reduction techniques: automated exposure control, adjustment of the mA and/or kV according to patient size, and/or use of iterative reconstruction technique. MIP reconstructed images were created and reviewed. CONTRAST: IV 100mL Isovue-370 RADIATION DOSE: CTDIvol = 14.54 mGy, DLP = 584.17 mGy-cm COMPARISON: No relevant prior studies available. FINDINGS: PULMONARY ARTERIES: Unremarkable. Normal in caliber. No evidence of pulmonary embolism. AORTA: Unremarkable. Normal in caliber. No evidence of dissection. GREAT VESSELS OF AORTIC ARCH: Unremarkable. Normal in caliber. No evidence of dissection. LUNGS AND PLEURAL SPACES: Diffuse interstitial prominence suggestive of interstitial edema. Scattered groundglass pulmonary density throughout both lungs suspicious for mild airspace pulmonary edema. Small bilateral pleural effusions worse on the right. Prominent compressive atelectasis in both lower lobes. HEART: Mild cardiomegaly. No pericardial effusion. No significant coronary artery calcifications. MEDIASTINUM: Cannot exclude mild bilateral hilar adenopathy and subcarinal adenopathy. Esophagus is unremarkable. No hiatal hernia. THYROID: Unremarkable. No thyroid lesions. BONES/JOINTS: Unremarkable. No suspicious lytic or blastic abnormality. CT/CTA Chest W/WO Contrast IMPRESSION: 1. No evidence for pulmonary embolism. 2. Cardiomegaly. 3. Probable pulmonary edema. 4. Pleural effusions with compressive atelectasis in both lower lobes. 5. Cannot exclude adenopathy. Electronically Signed: Jeff Huber MD at 17:14 EDT ,
[2023-01-13 15:44] LABS: Troponin-I HS 62 pg/mL (3.0-78.0)
[2023-01-13 16:58] VITALS: BP 115/88
[2023-01-13 17:00] VITALS: BP 105/73; PULSE 96; RESP 16; O2SAT 92
[2023-01-13 18:00] VITALS: BP 106/92; PULSE 105; RESP 18; O2SAT 94
[2023-01-13] MEDS: Furosemide 40 MG/4 ML Vial IV (18:36)
--- NOTE | 2023-01-13 19:22 | HP.PCM.HOS_ITS ---
HPI - General General Date of Admission: 01/13/23 Date of Service: 01/13/23 Chief Complaint: Chest pain, volume overload HPI Narrative DAVON MATHEW, is a 52 M with no significant past medical history who presented to [facility] ED on 01/13/2023 with chest pain and volume overload. Patient seen at bedside in the ED, present. Patient sitting comfortably in bed, conversing normally, no acute distress. Patient mccabe s state that he feels fairly fatigued at this time. Patient states that he was in [place] for a trip last week and noticed that he had some shortness of breath with exertion at that time. He attributed this to being at a higher elevation. However, on returning home he continued to have shortness of breath with exertion and then developed chest pain yesterday evening with exertion. Patient otherwise denies any recent fevers or chills. Denies any abdominal pain or discomfort. Denies any lightheadedness or dizziness. No other acute concerns. Vitals in ED notable for tachycardia with heart rate around 110, otherwise unremarkable. Labs notable for normal CBC, sodium 141, potassium 5.1, BUN 19, creatinine 1.09, BNP 491, troponin 62 with repeat pending. EKG showed sinus rhythm with frequent PVCs, no ST changes noted. Chest x-ray on admit showed a mild degree of vascular congestion with bibasilar atelectasis. CTA chest showed no evidence of PE, cardiomegaly, probable pulmonary edema, pleural effusions with compressive atelectasis in both lower lobes. [facility] Medical History no medical history Home Medications NK 01/13/23 [History Last Taken Unknown] Allergy/AdvReac Type Severity Reaction Status Date / Time No Known Allergies Allergy Verified 01/13/23 12:58 Surgical History Hx of appendectomy Hx of cholecystectomy S/P ORIF (open reduction internal fixation) fracture Social History Smoking Status: Never smoker ROS Constitutional Constitutional: Reports fatigue; Denies chills, fever(s) or weakness Eyes Eyes: Denies change in vision Cardiovascular Cardiovascular: Reports chest pain, dyspnea on exertion, edema and rapid heart rate; Denies lightheadedness, orthopnea, palpitations or syncope Respiratory/Chest Respiratory/Chest: Denies cough Gastrointestinal Gastrointestinal: Denies abdominal pain Musculoskeletal Musculoskeletal: Denies back pain Neurologic Neurologic: Denies dizziness, headache(s), numbness or paresthesias Vital Signs Vital Signs Vital Signs: 01/13/23 12:59 01/13/23 14:12 01/13/23 16:58 Temperature 97.8 F Temperature Source Temporal Pulse Rate 116 H Respiratory Rate 18 Respiratory Effort Blood Pressure 113/85 H 115/88 H Blood Pressure Mean 94 97 Pulse Ox 97 Oxygen Delivery Method Room Air Room Air 01/13/23 17:00 01/13/23 17:37 01/13/23 18:00 Temperature Temperature Source Pulse Rate 96 105 H Respiratory Rate 16 18 Respiratory Effort Normal Non-Labored Blood Pressure 105/73 106/92 H Blood Pressure Mean 83 96 Pulse Ox 92 94 Oxygen Delivery Method Room Air Room Air Weight Weight: 96.615 kg Body Mass Index (BMI) 27.3 Physical Exam Const alert, oriented x3, no apparent distress, average body habitus, healthy appearing and well nourished Constitutional Narrative: Pleasant male, sitting comfortably in bed, conversing normally, no acute distress. General Appearance: cooperative, comfortable, well kempt and well developed HEENT normocephalic, head/scalp atraumatic, hearing grossly normal bilaterally, nasal mucous membranes and turbinates normal and moist oral mucous membranes Eyes PERRL, EOMs intact bilaterally and conjunctivae normal Neck full ROM, no lymphadenopathy and supple Lymph Lymphatic: no lymphadenopathy noted Chest inspection of chest normal Resp Resp Narrative: Mild crackles noted bilaterally, otherwise good air movement throughout, satting well on room air with no increased work of breathing noted. Cardio regular rate, regular rhythm, no murmurs and peripheral pulses 2+ throughout GI normal to inspection, nondistended, normoactive bowel sounds, soft to palpation, non-tender and non-distended Back/Spine normal ROM Extremity normal to inspection and full ROM Extremity Narrative: +1 to +2 lower extremity pitting edema. Skin no rashes or lesions noted Psych mental status grossly normal Results Lab / Micro Data 01/13/23 13:00 01/13/23 13:00 Labs: Laboratory Results - last 24 hr 01/13/23 13:00: WBC 9.4, RBC 4.26 L, Hgb 14.3, Hct 42.0, MCV 98.6 H, MCH 33.6 H, MCHC 34.0, RDW Std Deviation 45.9 H, RDW Coeff of Dona 12.9, Plt Count 330, MPV 10.0, Immature Gran % (Auto) 0.400, Neut % (Auto) 54.3, Lymph % (Auto) 28.0, [place] % (Auto) 9.9, Eos % (Auto) 6.2 H, Baso % (Auto) 1.2 H, Absolute Neuts (auto) 5.1, Absolute Lymphs (auto) 2.62, Nucleated RBC % 0, Sodium 141, Potassium 5.1, Chloride 111 H, Carbon Dioxide 25.0, Anion Gap 5, BUN 19 H, Creatinine 1.09, Estim Creat Clear Calc 91.12, Est GFR (MDRD) Af Amer 91, Est GFR (MDRD) Non-Af 75, BUN/Creatinine Ratio 17.4, Glucose 101, Calcium 8.9, Troponin I High Sens 60, B-Natriuretic Peptide 491.0 H 01/13/23 13:09: D-Dimer Quant (PE/DVT) 0.85 H* 01/13/23 15:15: Troponin I High Sens 62 Radiology Impression Chest X-Ray 01/13/23 13:01 IMPRESSION: Mild degree of vascular congestion with bibasilar atelectasis. Electronically Signed: Yvan Montano MD at 13:33 EDT , Chest CTA 01/13/23 15:41 IMPRESSION: 1. No evidence for pulmonary embolism. 2. Cardiomegaly. 3. Probable pulmonary edema. 4. Pleural effusions with compressive atelectasis in both lower lobes. 5. Cannot exclude adenopathy. Electronically Signed: Jeff Huber MD at 17:14 EDT , Assessment & Plan Assessment/Plan (1) Chest pain: PLAN: Plan Patient is a 52-year-old [facility] male with no significant past medical history who presented to [facility] ED on 01/13/2023 with chest pain and volume overload. 1. Chest pain with new volume overload High concern for cardiac etiology given new onset volume overload concerning for heart failure. Low concern for acute ACS given no EKG findings concerning for ischemia, negative troponins to this point. Chest x-ray on admit showed a mild degree of vascular congestion with bibasilar atelectasis. CTA chest showed no evidence of PE, cardiomegaly, probable pulmonary edema, pleural effusions with compressive atelectasis in both lower lobes. BNP 491 on admit. ? Admit under inpatient status to PCU. Given 1 dose of aspirin 325 mg in ED, will hold on starting heparin drip given low concern for NSTEMI. Nuclear stress test ordered. Echo ordered. N.p.o. at midnight. A1c, lipid panel, TSH ordered. Continue to trend troponins for now. Given 1 dose of IV Lasix 40 mg in the ED, start IV Lasix 40 mg twice daily for now. Monitor urine output. Monitor daily BMP. Can consider cardiology consultation as needed. DVT prophylaxis: Lovenox CODE STATUS: Full code, verified Expected disposition: Home, 2 to 3 days Total clinical time spent by myself addressing the patient's medical issues, reviewing all the data, and collaborating with patient's care team: 55 minutes. Charges/Coding Visit Charges Inpatient E&M: 18986 Init Hosp L2
[2023-01-13 20:11] LABS: Prothrombin Time (Protime)PT. 13.2 SECONDS (11.7-14.9)
[2023-01-13 20:27] LABS: Thyroid Stim Hormone (TSH) 2.47 uIU/mL (0.358-3.74)
--- NOTE | 2023-01-13 20:43 | ECHOCS_ITS ---
Version 2 Reason For Study: Chest Pain Procedure This was a 2D Doppler, Color Flow transthoracic echocardiogram. Contrast injection was performed. Exam performed in department. Left Ventricle Severely dilated left ventricle. The left ventricular ejection fraction is 10 %. There is severe global hypokinesis of the left ventricle. Right Ventricle Normal RV size. Normal systolic function. Atria The left atrium is moderately enlarged. Normal right atrium. Mitral Valve Normal mitral valve. Mild (1+) eccentric mitral valve insufficiency. Tricuspid Valve Normal tricuspid valve. Aortic Valve Normal aortic valve. Trisinus/trileaflet aortic valve. Pulmonic Valve Normal pulmonic valve. Great Vessels Normal aortic root. The pulmonary artery is normal size. Normal inferior vena cava. Pericardium/Pleural No pericardial effusion. Medication Diluted definity 4ml given slow IV push to enhance endocardial definition. MMode/2D Measurements & Calculations LVIDd: 7.1 cm IVSd: 0.94 cm LA dimension: 4.9 cm LVIDs: 6.8 cm LVPWd: 0.83 cm RVDd: 4.0 cm FS: 3.8 % LAV(MOD-bp): 103.3 ml LVAd ap4: 66.2 cm2 SV(MOD-sp4): 65.6 ml LAV(MOD-bp) Indexed: 46.3 ml/m2 LVLd ap4: 10.0 cm LAV(MOD-sp2): 93.9 ml EDV(MOD-sp4): 361.8 ml LAV(MOD-sp4): 92.9 ml EDV(sp4-el): 370.3 ml LVAs ap4: 57.5 cm2 LVLs ap4: 9.3 cm ESV(MOD-sp4): 296.2 ml ESV(sp4-el): 302.1 ml EF(MOD-sp4): 18.1 % EF(sp4-el): 18.4 % SV(sp4-el): 68.2 ml LA A4 area: 29.1 cm2 RA A4 area: 14.4 cm2 TAPSE: 1.4 cm Doppler Measurements & Calculations MV E max casimiro: 87.2 cm/sec Lat Peak E' Casimiro: 10.4 cm/sec Med Peak E' Casimiro: 11.1 cm/sec E/E' lat: 8.4 E/E' med: 7.8 Ao V2 max: 56.4 cm/sec LV V1 max: 56.9 cm/sec MR max casimiro: 428.3 cm/sec Ao max P.3 mmHg LV V1 max P.3 mmHg MR max P.4 mmHg MR mean casimiro: 321.2 cm/sec MR mean P.9 mmHg MR VTI: 127.2 cm PA V2 max: 81.7 cm/sec ECHO/Echo Complete W/ Contrast Interpretation Summary The left ventricular ejection fraction is 10 %. There is severe global hypokinesis of the left ventricle. Mild (1+) eccentric mitral valve insufficiency. The left atrium is moderately enlarged. Severely dilated left ventricle. Contrast injection was performed. Ordering Physician: Álvaro Crisostomo Performed By: Levon Ward RCS
[2023-01-13 20:47] VITALS: BP 100/81; PULSE 96; RESP 18; TEMP 36.7; O2SAT 95; BMI 27.8
[2023-01-13 21:11] LABS: AST(SGOT) 17 U/L (15-37); Alanine Aminotransfer ALT/SGPT 35 U/L (16-61); Albumin, Serum 3.9 g/dL (3.2-5.0); Alkaline Phosphatase 88 U/L (45-117); Bilirubin, Direct 0.44 mg/dL (0.00-0.30); Cholesterol 189 mg/dL (200); Globulin 3.2 g/dL (2.2-4.2); High Density Lipoprotein 44 mg/dL; Protein, Total 7.1 g/dL (6.4-8.2); Triglycerides 140 mg/dL; Very Low Density Lipoprotein 28 mg/dL (5-40)
[2023-01-13 22:14] VITALS: O2SAT 95
[2023-01-13 23:15] LABS: Troponin-I HS 63 pg/mL (3.0-78.0)
[2023-01-14] VITALS (15 sets, daily range): BP systolic 90–105; BP diastolic 63–85; PULSE 92–108; RESP 14–21; TEMP 36.2–36.7; O2SAT 90–98; BMI 27.8
[2023-01-14 04:03] LABS: Magnesium 2.6 mg/dL (1.6-2.6)
--- NOTE | 2023-01-14 05:55 | EKG12_ITS ---
Test Reason : AM EKG Blood Pressure : / mmHG Vent. Rate : 090 BPM Atrial Rate : 090 BPM P-R Int : 206 ms QRS Dur : 112 ms QT Int : 410 ms P-R-T Axes : 053 -55 118 degrees QTc Int : 501 ms Normal sinus rhythm Possible Left atrial enlargement Left anterior fascicular block T wave abnormality, consider lateral ischemia Prolonged QT Abnormal ECG When compared with ECG of 13-JAN-2023 13:05, MANUAL COMPARISON REQUIRED, DATA IS UNCONFIRMED Confirmed by SANDEE JOHNSON, TRAE ([id number]), medical editor GISSELL PIPER ([id number]) on 01/30/2023 1:10:40 PM Referred By: Confirmed By:TRAE IGNACIO MD
[2023-01-14 07:07] LABS: Hematocrit 39.2 % (40-54); Hemoglobin 13.3 g/dL (13.0-16.5); Mean Corp Hgb Conc 33.9 g/dL (32-36); Mean Corpuscular Hgb 33.4 pg (27.0-32.0); Mean Corpuscular Volume 98.5 fL (80-94); Mean Platelet Vol. 10.4 fl (6.2-12.0); Platelet Count 283 K/mm3 (150-450); RBC Distribution Width CV 12.8 % (11.6-14.6); RBC Distribution Width SD 45.9 fl (35.1-43.9); Red Blood Count 3.98 M/mm3 (4.6-6.2)
[2023-01-14 07:36] LABS: Anion Gap 6 (5-15); BUN 21 mg/dL (7-18); BUN/Creat Ratio 19.1 RATIO (10-20); Calcium,Total 8.4 mg/dL (8.5-10.1); Chloride 110 mmol/L (98-107); EST Glomerular Filtration Rate 74 mL/min (>60); Est Glom Filt Rate - Afr Amer 90 mL/min (>60); Estimated Creatinine Clearance 85.24 ml/min; Glucose 102 mg/dL (74-106); Potassium 3.9 mmol/L (3.5-5.1); Sodium Level 142 mmol/L (136-145)
[2023-01-14 09:24] LABS: Hemoglobin A1c 4.9 % (3.8-5.6)
--- NOTE | 2023-01-14 10:54 | PCM.PN.HOSP ---
Reason for Visit Reason for Visit: Diagnoses Chest pain, unspecified (01/13/23) Subjective Subjective Patient is a 52-year-old gentleman who presented to the emergency department with chest pain and shortness of breath Objective Data Objective Data Vital Signs: Vital Signs Temp Pulse Resp BP Pulse Ox O2 Del Method 97.7 F L 92 18 91/63 98 Room Air 01/14/23 06:30 01/14/23 06:30 01/14/23 06:30 01/14/23 06:30 01/14/23 07:45 01/14/23 08:32 Oxygen Delivery Method Room Air Weight: 93.2 kg Body Mass Index (BMI) 27.8 Lab / Micro Data 01/14/23 06:03 01/14/23 06:03 Labs: Laboratory Results - last 24 hr 01/13/23 13:00: WBC 9.4, RBC 4.26 L, Hgb 14.3, Hct 42.0, MCV 98.6 H, MCH 33.6 H, MCHC 34.0, RDW Std Deviation 45.9 H, RDW Coeff of Dona 12.9, Plt Count 330, MPV 10.0, Immature Gran % (Auto) 0.400, Neut % (Auto) 54.3, Lymph % (Auto) 28.0, [place] % (Auto) 9.9, Eos % (Auto) 6.2 H, Baso % (Auto) 1.2 H, Absolute Neuts (auto) 5.1, Absolute Lymphs (auto) 2.62, Nucleated RBC % 0, PT 13.2, INR 1.0, Sodium 141, Potassium 5.1, Chloride 111 H, Carbon Dioxide 25.0, Anion Gap 5, BUN 19 H, Creatinine 1.09, Estim Creat Clear Calc 91.12, Est GFR (MDRD) Af Amer 91, Est GFR (MDRD) Non-Af 75, BUN/Creatinine Ratio 17.4, Glucose 101, Calcium 8.9, Troponin I High Sens 60, B-Natriuretic Peptide 491.0 H, TSH 2.47 01/13/23 13:09: D-Dimer Quant (PE/DVT) 0.85 H* 01/13/23 15:15: Troponin I High Sens 62 01/13/23 20:43: Total Bilirubin 3.00 H, Direct Bilirubin 0.44 H, AST 17, ALT 35, Alkaline Phosphatase 88, Total Protein 7.1, Albumin 3.9, Globulin 3.2, Triglycerides 140, Cholesterol 189, LDL Cholesterol 117, VLDL Cholesterol 28, HDL Cholesterol 44 01/13/23 22:17: Magnesium 2.6, Troponin I High Sens 63 01/14/23 06:03: WBC 9.0, RBC 3.98 L, Hgb 13.3, Hct 39.2 L, MCV 98.5 H, MCH 33.4 H, MCHC 33.9, RDW Std Deviation 45.9 H, RDW Coeff of Dona 12.8, Plt Count 283, MPV 10.4, Sodium 142, Potassium 3.9, Chloride 110 H, Carbon Dioxide 26.0, Anion Gap 6, BUN 21 H, Creatinine 1.10, Estim Creat Clear Calc 85.24, Est GFR (MDRD) Af Amer 90, Est GFR (MDRD) Non-Af 74, BUN/Creatinine Ratio 19.1, Glucose 102, Hemoglobin A1c 4.9, Calcium 8.4 L Radiography Diagnostic Testing: Radiology Impression Chest X-Ray 01/13/23 13:01 IMPRESSION: Mild degree of vascular congestion with bibasilar atelectasis. Electronically Signed: Yvan Montano MD at 13:33 EDT , Chest CTA 01/13/23 15:41 IMPRESSION: 1. No evidence for pulmonary embolism. 2. Cardiomegaly. 3. Probable pulmonary edema. 4. Pleural effusions with compressive atelectasis in both lower lobes. 5. Cannot exclude adenopathy. Electronically Signed: Jeff Huber MD at 17:14 EDT , Physical Exam Narrative GENERAL: cooperative HEENT: Atraumatic; normocephalic EYES; Anicteric, Normal Conjunctiva NECK; supple, normal thyroid, RESPIRATORY: Diminished to auscultation CARDIOVASCULAR: Regular S1 S2, GI: soft, normoactive bowel sounds, : No Renal angle tenderness; EXTREMITIES: No edema, no clubbing, MUSCULOSKELETAL: no muscle wasting NEURO: Awake; no lateralizing signs. SKIN: No Rash PSYCH; Flat affect Assessment & Plan Assessment/Plan (1) Chest pain: QUALIFIERS: Chest pain type: unspecified Qualified Code(s): R07.9 - Chest pain, unspecified PLAN: Plan Patient is a 52-year-old gentleman who presented to the emergency department with chest pain and shortness of breath 1. Chest pain ? Patient admitted to a monitored bed with plans to rule out [place] with serial cardiac enzymes, patient to undergo a nuclear stress test if [place] is ruled out 2. New onset congestive heart failure ? CTA of the chest obtained on admission was negative for pulmonary embolism however did show cardiomegaly and probable pulmonary edema and pleural effusion with compressive atelectasis in both lower lobes. As part of his management 2D echo ordered patient started on diuretic therapy with furosemide ? Patient 2D echo demonstrated EF of 10% consult placed to cardiology Case discussed with Dr. Watts, patient to undergo left heart catheterization 3. DVT prophylaxis - On enoxaparin Time spent in the patient's overall evaluation,decision-making process, review of diagnostic data, adjustment of management, discussion with other providers, nursing nursing and ancillary staff involved in patient's care documentation, 50 Minutes Charges/Coding Visit Charges Inpatient E&M: [id number] [place] [id number]
--- NOTE | 2023-01-14 11:42 | CON.PCM.CA_ITS ---
Assessment & Plan Assessment/Plan (1) Congestive heart failure: PLAN: * Presents with shortness of breath and is noted to have an elevated natruretic peptide as well as an echocardiogram which confirmed severe left ventricular systolic dysfunction and a dilated left ventricle. My recommendations will be as follows: * Intravenous Lasix * Start carvedilol 6.25 mg twice a day * Exclude obstructive coronary disease by cardiac catheterization done today which did not demonstrate any significant obstructive coronary disease * Start LAURIE inhibitor and then transition to ARNI * Start Farxiga 10 mg a day * And will follow-up in cardiology clinic for further evaluation and management including but not restricted to ICD implantation if EF does not improve in 3 months. HPI Consult Data Date of Consult: 01/14/23 HPI Narrative HPI Narrative: DAVON MATHEW, is a 52 M who presents to the emergency room with shortness of breath which he says has been going on for a few weeks as well as chest heaviness. He denies any dizziness or diaphoresis near syncope or syncope. He was seen in the emergency room and hospital was noted to have no acute changes but with fullness on his chest x-ray. He was scheduled to have a stress test and an echocardiogram and his echocardiogram demonstrated severe left ventricular systolic dysfunction with an estimated ejection fraction of 10%. Cardiology was consulted and the stress test was canceled. [facility] Medical History no medical history Home Medications NK 01/13/23 [History Last Taken Unknown] Allergy/AdvReac Type Severity Reaction Status Date / Time No Known Allergies Allergy Verified 01/13/23 12:58 Surgical History Hx of appendectomy Hx of cholecystectomy S/P ORIF (open reduction internal fixation) fracture Social History Smoking Status: Never smoker ROS Constitutional Constitutional: Denies fever(s) or weight loss Eyes Eyes: Reports systems reviewed and no addt'l complaints, except as documented ENT HEENT: Reports systems reviewed and no addt'l complaints, except as documented Cardiovascular Cardiovascular: Denies chest pain at rest, chest pain with activity, dyspnea at rest, dyspnea on exertion, edema, palpitations or paroxysmal nocturnal dyspnea Respiratory/Chest Respiratory/Chest: Denies dyspnea on exertion, productive cough, shortness of breath at rest or shortness of breath with exertion Gastrointestinal Gastrointestinal: Denies change in bowel habits, nausea, vomiting or weight changes Genitourinary Genitourinary: Denies difficulty urinating Musculoskeletal Musculoskeletal: Denies joint stiffness or muscle weakness Integumentary Integumentary: Denies lesions Neurologic Neurologic: Denies dizziness or syncope Psychiatric Psychiatric: Denies anxiety Endocrine Endocrinology: Denies excessive sweating or fatigue Hematologic/Lymphatic Hematologic/Lymphatic: Denies anemia Allergic/Immunologic Allergic/Immunologic: Denies seasonal rhinorrhea Physical Exam Const alert, oriented x3 and no apparent distress General Appearance: cooperative HEENT hearing grossly normal bilaterally Head and Scalp: atraumatic Eyes EOMs intact bilaterally Neck General: normal visual inspection Chest inspection of chest normal and palpation of chest normal Resp normal respiratory effort Auscultation: clear to auscultation bilaterally Cardio regular rate, regular rhythm, S1 normal heart sound and S2 normal heart sound Jugular Venous Distention: JVD Heart Sounds: gallop GI normal to inspection, nondistended, normoactive bowel sounds Extremity normal capillary refill and no pedal edema Peripheral Pulses: Yes pulses 2+ throughout and femoral pulses present Skin no rashes or lesions noted Neuro oriented x3 and CN's II-XII intact bilaterally Psych Appearance: grossly normal and appropriate Risk Stratification Risk Stratification Applicable: No Objective Data Vital Signs: Vital Signs Temp Pulse Resp BP Pulse Ox O2 Del Method 97.7 F L 92 18 91/63 98 Room Air 01/14/23 06:30 01/14/23 06:30 01/14/23 06:30 01/14/23 06:30 01/14/23 07:45 01/14/23 08:32 Oxygen Delivery Method Room Air Weight: 205 lb 7.533 oz Body Mass Index (BMI) 27.8 Lab / Micro Data 01/14/23 06:03 01/14/23 06:03 Labs: Laboratory Results - last 24 hr 01/13/23 13:00: WBC 9.4, RBC 4.26 L, Hgb 14.3, Hct 42.0, MCV 98.6 H, MCH 33.6 H, MCHC 34.0, RDW Std Deviation 45.9 H, RDW Coeff of Dona 12.9, Plt Count 330, MPV 10.0, Immature Gran % (Auto) 0.400, Neut % (Auto) 54.3, Lymph % (Auto) 28.0, [place] % (Auto) 9.9, Eos % (Auto) 6.2 H, Baso % (Auto) 1.2 H, Absolute Neuts (auto) 5.1, Absolute Lymphs (auto) 2.62, Nucleated RBC % 0, PT 13.2, INR 1.0, Sodium 141, Potassium 5.1, Chloride 111 H, Carbon Dioxide 25.0, Anion Gap 5, BUN 19 H, Creatinine 1.09, Estim Creat Clear Calc 91.12, Est GFR (MDRD) Af Amer 91, Est GFR (MDRD) Non-Af 75, BUN/Creatinine Ratio 17.4, Glucose 101, Calcium 8.9, Troponin I High Sens 60, B-Natriuretic Peptide 491.0 H, TSH 2.47 01/13/23 13:09: D-Dimer Quant (PE/DVT) 0.85 H* 01/13/23 15:15: Troponin I High Sens 62 01/13/23 20:43: Total Bilirubin 3.00 H, Direct Bilirubin 0.44 H, AST 17, ALT 35, Alkaline Phosphatase 88, Total Protein 7.1, Albumin 3.9, Globulin 3.2, Triglycerides 140, Cholesterol 189, LDL Cholesterol 117, VLDL Cholesterol 28, HDL Cholesterol 44 01/13/23 22:17: Magnesium 2.6, Troponin I High Sens 63 01/14/23 06:03: WBC 9.0, RBC 3.98 L, Hgb 13.3, Hct 39.2 L, MCV 98.5 H, MCH 33.4 H, MCHC 33.9, RDW Std Deviation 45.9 H, RDW Coeff of Dona 12.8, Plt Count 283, MPV 10.4, Sodium 142, Potassium 3.9, Chloride 110 H, Carbon Dioxide 26.0, Anion Gap 6, BUN 21 H, Creatinine 1.10, Estim Creat Clear Calc 85.24, Est GFR (MDRD) Af Amer 90, Est GFR (MDRD) Non-Af 74, BUN/Creatinine Ratio 19.1, Glucose 102, Hemoglobin A1c 4.9, Calcium 8.4 L Cardiology Labs/Tests 01/13/23 13:00: WBC 9.4, RBC 4.26 L, Hgb 14.3, Hct 42.0, MCV 98.6 H, MCH 33.6 H, MCHC 34.0, Plt Count 330, MPV 10.0, Immature Gran % (Auto) 0.400, Neut % (Auto) 54.3, Lymph % (Auto) 28.0, [place] % (Auto) 9.9, Eos % (Auto) 6.2 H, Baso % (Auto) 1.2 H, Absolute Neuts (auto) 5.1, Nucleated RBC % 0, PT 13.2, INR 1.0, Sodium 141, Potassium 5.1, Chloride 111 H, Carbon Dioxide 25.0, Anion Gap 5, BUN 19 H, Creatinine 1.09, Est GFR (MDRD) Af Amer 91, Est GFR (MDRD) Non-Af 75, B UN/Creatinine Ratio 17.4, Glucose 101, Calcium 8.9, B-Natriuretic Peptide 491.0 H 01/13/23 13:09: D-Dimer Quant (PE/DVT) 0.85 H* 01/13/23 20:43: Total Bilirubin 3.00 H, Direct Bilirubin 0.44 H, Triglycerides 140, Cholesterol 189, LDL Cholesterol 117, VLDL Cholesterol 28, HDL Cholesterol 44 01/13/23 22:17: Magnesium 2.6 01/14/23 06:03: WBC 9.0, RBC 3.98 L, Hgb 13.3, Hct 39.2 L, MCV 98.5 H, MCH 33.4 H, MCHC 33.9, Plt Count 283, MPV 10.4, Sodium 142, Potassium 3.9, Chloride 110 H , Carbon Dioxide 26.0, Anion Gap 6, BUN 21 H, Creatinine 1.10, Est GFR (MDRD) Af Amer 90, Est GFR (MDRD) Non-Af 74, BUN/Creatinine Ratio 19.1, Glucose 102, Hemoglobin A1c 4.9, Calcium 8.4 L Rhythm: EKG: ECHO: Stress Test: Cardiac Cath: PCI: CT Surgery: Holter monitor: EPS: PPM: CXR: Chest CT Scan: Radiography Diagnostic Testing: Radiology Impression Chest X-Ray 01/13/23 13:01 IMPRESSION: Mild degree of vascular congestion with bibasilar atelectasis. Electronically Signed: Yvan Montano MD at 13:33 EDT , Chest CTA 01/13/23 15:41 IMPRESSION: 1. No evidence for pulmonary embolism. 2. Cardiomegaly. 3. Probable pulmonary edema. 4. Pleural effusions with compressive atelectasis in both lower lobes. 5. Cannot exclude adenopathy. Electronically Signed: Jeff Huber MD at 17:14 EDT , Echocardiogram 01/13/23 20:43 Interpretation Summary The left ventricular ejection fraction is 10 %. There is severe global hypokinesis of the left ventricle. Mild (1+) eccentric mitral valve insufficiency. The left atrium is moderately enlarged. Severely dilated left ventricle. Contrast injection was performed. Ordering Physician: Álvaro Crisostomo Performed By: Levon Ward RCS
--- NOTE | 2023-01-14 12:26 | CASEMGMT ---
[facility] Tertiary Facility Transfer List: Pt with [facility] coverage so can transfer to any tertiary facility. Guanakito Green RN CM
--- NOTE | 2023-01-14 12:51 | CL.D_ITS ---
Patient Name: DAVON MATHEW Study Date: 01/14/2023 Performing: Don Watts MD Ht: 72 inches 182.88 cm : 1970 Wt: 205.47 lbs 93.2 kg Age: 52 Gender: male BSA: 2.15 PROCEDURE(S) PERFORMED DC01-([id number])LHC/COR/LV CLINICAL PROFILE AND INDICATIONS Indications: Cardiomyopathy Heart Failure: None Stress/Imaging Stress/Image Study Performed: No CAD Presentations: Other: SOB CONCLUSIONS Normal coronary arteries Cardiomyopathy: Dilated RECOMMENDATIONS Medical therapy DESCRIPTION OF PROCEDURE The patient arrived to the procedure lab. The risks and benefits of the procedure as well as a full description of our services here and current unavailability of surgical backup were fully explained to the patient and/or their significant other prior to the catheterization. The Timeout was completed, verifying the correct patient and procedure. The patient's procedural site was prepped and draped in the usual fashion. Local anesthetic was given subcutaneously to right radial region with Lidocaine 2%. Using a modified Seldinger technique, arterial access was obtained via the right radial artery, a 6Fr sheath was inserted. Left Coronary Artery selective angiography was performed in multiple views using a 5 Fr. 4.0 [place] catheter. Right Coronary Artery selective angiography was then performed in multiple views using a 5 Fr. 4.0 [place] catheter.The arterial sheath was pulled and a TR Band was applied for hemostasis-8cc air CORONARY ANGIOGRAPHY DOMINANCE: Right Dominant LEFT HEART ASSESSMENT Left Ventricular Ejection Fraction: by Echo 10 % Abnormal LV wall motion Depressed Left Ventricular systolic function LEFT MAIN: Angiographically normal LEFT ANTERIOR DESCENDING ARTERY: Angiographically normal CIRCUMFLEX ARTERY: Angiographically normal RIGHT CORONARY ARTERY: Angiographically normal COMPLICATIONS No Complications PROCEDURE MEDICATIONS Versed 1 mg IV Fentanyl 50 mcg IV Oxygen: 2 L/min via nasal cannula Oxygen: 4 L/min via nasal cannula Aspirin (325mg) 1 Tabs PO @ 01/14/2023 11:45:27 Heparin given IA 01/14/2023 12:18:54 Verapamil 2.5mg, Ntg 100mcgs, 3000 units of Heparin given IA 01/14/2023 12:18:54 IV Fluids: .9 NaCl increased to 100 ml/hr 01/14/2023 12:37:09 SUMMARY OF HEMODYNAMIC DATA Time AIR REST ECG 11:46:22 ECG 12:04:28 Art 87/53 (66) 12:22:19 AO 68/51 (57) SA 12:35:52 AO 77/44 (58) 12:39:08 AO 86/49 (64) 12:43:30 Signed By Don Watts MD On 01/14/2023 12:50:49 Don Watts MD
--- NOTE | 2023-01-14 14:25 | CASEMGMT ---
RN?CM?EXHAUST EQUIPMENT OPERATOR?CM?to room to meet with patient for initial transition planning/care coordination?assessment.?RN?CM?introduced self and role at [facility].? Pt voices understanding and consents to?assessment?at this time.? Pt resting in bed in no distress at this time.? and dtr @ bedside. Pt is A/O at this time and answers all questions appropriately.?? Care providers, pharmacy, and demographics verified/updated at this time. PCP: Dr Granado Specialists: none Preferred Pharmacy: [facility] Retail Insurance: [facility] Prescription Benefit: none? Living Will/HPOA:?Has both LW and HCPOA, who is his , Elias LNOK: , Elias. Pt has 2 dtr's and 5 sons. Living Arrangements: Lives w/his , 2 daughters and one son in 2-story home w/4-5 steps to enter. Denies difficulty w/stairs. Independent. Pt is self-employed and works full-time. Transportation: Hire drivers DME: ? Denies using any DME and denies needs.? HHC/SNF: No hx of SNF. Has had [facility]HC in the past (2019) when he had a wound vac. Denies needs at this time and no needs identified. Pt wishes to return home and states has no concerns with going home at time of discharge.?CM?to follow for home oxygen needs and any further discharge planning/needs.? Pt and family voice no concerns/needs at this time.? Advised pt and family to ask for?CM?if any questions/concerns/needs arise.? They voice understanding. PLAN:??Home w/family support and discharge plans in place. Mamie BSN?RN?CM
[2023-01-14] MEDS: Carvedilol 3.125 MG TABLET PO (22:10)
[2023-01-15 03:35] VITALS: BP 91/65; PULSE 102; RESP 18; TEMP 36.7; O2SAT 94
[2023-01-15 05:21] VITALS: BMI 28.4
[2023-01-15 07:11] LABS: Absolute Lymphocyte Count 2.38 X10^3/uL (0.83-4.51); Absolute Neutrophil Count 6.2 X10^3/uL (2.0-7.7); Basophil# 0.09 X10^3/uL; Basophil% 0.8 % (0-1); Eosinophil# 0.82 X10^3/uL; Eosinophils% 7.7 % (0-5); Hematocrit 39.4 % (40-54); Hemoglobin 13.2 g/dL (13.0-16.5); Lymphocyte # 2.38 X10^3/ul (0.83-4.51); Lymphocyte % 22.3 % (19-41); Mean Corp Hgb Conc 33.5 g/dL (32-36); Mean Corpuscular Hgb 32.8 pg (27.0-32.0); Mean Platelet Vol. 10.3 fl (6.2-12.0); Monocyte# 1.12 X10^3/uL; Monocyte% 10.5 % (0-10); NRBC Flagged by Analyzer 0 % (0-5); Neutrophil # 6.24 X10^3/uL (2.7-7.7); Neutrophil % 58.4 % (47-70); Platelet Count 272 K/mm3 (150-450); RBC Distribution Width CV 12.8 % (11.6-14.6); RBC Distribution Width SD 45.7 fl (35.1-43.9); Red Blood Count 4.02 M/mm3 (4.6-6.2); White Blood Count 10.7 K/mm3 (4.4-11.0)
--- NOTE | 2023-01-15 07:37 | PN.CARD_ITS ---
Subjective Subjective Patient seen and evaluated. Appears to be doing well breathing better. Objective Data Vital Signs: Vital Signs Temp Pulse Resp BP Pulse Ox O2 Del Method O2 Flow Rate 98.1 F 102 H 18 91/65 94 Room Air 2 01/15/23 03:35 01/15/23 03:35 01/15/23 03:35 01/15/23 03:35 01/15/23 03:35 01/15/23 03:35 01/14/23 16:45 Oxygen Flow Rate (L/min) 2 Oxygen Delivery Method Room Air Weight: 209 lb 14.081 oz Body Mass Index (BMI) 28.4 Intake & Output: Intake and Output for Last 24 Hours 01/13/23 01/14/23 01/15/23 23:59 23:59 23:59 Intake Total 1999 Balance 1999 Lab / Micro Data 01/15/23 06:32 01/14/23 06:03 Labs: Laboratory Results - last 24 hr 01/14/23 06:03: Hemoglobin A1c 4.9 01/15/23 06:32: WBC 10.7, RBC 4.02 L, Hgb 13.2, Hct 39.4 L, MCV 98.0 H, MCH 32.8 H, MCHC 33.5, RDW Std Deviation 45.7 H, RDW Coeff of Dona 12.8, Plt Count 272, MPV 10.3, Immature Gran % (Auto) 0.300, Neut % (Auto) 58.4, Lymph % (Auto) 22.3, [place] % (Auto) 10.5 H, Eos % (Auto) 7.7 H, Baso % (Auto) 0.8, Absolute Neuts (auto) 6.2, Absolute Lymphs (auto) 2.38, Nucleated RBC % 0 Cardiology Labs/Tests 01/14/23 06:03: Hemoglobin A1c 4.9 01/15/23 06:32: WBC 10.7, RBC 4.02 L, Hgb 13.2, Hct 39.4 L, MCV 98.0 H, MCH 32.8 H, MCHC 33.5, Plt Count 272, MPV 10.3, Immature Gran % (Auto) 0.300, Neut % (Auto) 58.4, Lymph % (Auto) 22.3, [place] % (Auto) 10.5 H, Eos % (Auto) 7.7 H, Baso % (Auto) 0.8, Absolute Neuts (auto) 6.2, Nucleated RBC % 0 Rhythm: EKG: ECHO: Stress Test: Cardiac Cath: PCI: CT Surgery: Holter monitor: EPS: PPM: CXR: Chest CT Scan: Radiography Diagnostic Testing: Radiology Impression Echocardiogram 01/13/23 20:43 Interpretation Summary The left ventricular ejection fraction is 10 %. There is severe global hypokinesis of the left ventricle. Mild (1+) eccentric mitral valve insufficiency. The left atrium is moderately enlarged. Severely dilated left ventricle. Contrast injection was performed. Ordering Physician: Álvaro Crisostomo Performed By: Levon Ward RCS Physical Exam Const alert, oriented x3 and no apparent distress General Appearance: cooperative HEENT hearing grossly normal bilaterally Head and Scalp: atraumatic Eyes EOMs intact bilaterally Neck General: normal visual inspection Chest inspection of chest normal and palpation of chest normal Resp normal respiratory effort Auscultation: clear to auscultation bilaterally Cardio regular rate, regular rhythm, S1 normal heart sound and S2 normal heart sound Jugular Venous Distention: JVD GI normal to inspection, nondistended, normoactive bowel sounds Extremity normal capillary refill and no pedal edema Peripheral Pulses: Yes pulses 2+ throughout and femoral pulses present Skin no rashes or lesions noted Neuro oriented x3 and CN's II-XII intact bilaterally Psych Appearance: grossly normal and appropriate Assessment & Plan Assessment/Plan (1) Congestive heart failure: PLAN: * Presents with shortness of breath and is noted to have an elevated natruretic peptide as well as an echocardiogram which confirmed severe left ventricular systolic dysfunction and a dilated left ventricle. My recommendations will be as follows: * Intravenous Lasix and lasix orally * Start carvedilol 3.125 mg twice a day * Exclude obstructive coronary disease by cardiac catheterization done today which did not demonstrate any significant obstructive coronary disease * Start LAURIE inhibitor and then transition to ARNI * Start Farxiga 10 mg a day * And will follow-up in cardiology clinic for further evaluation and management including but not restricted to ICD implantation if EF does not improve in 3 months.
[2023-01-15 07:41] LABS: AST(SGOT) 15 U/L (15-37); Alanine Aminotransfer ALT/SGPT 26 U/L (16-61); Albumin, Serum 3.4 g/dL (3.2-5.0); Alkaline Phosphatase 78 U/L (45-117); Anion Gap 6 (5-15); BUN 21 mg/dL (7-18); BUN/Creat Ratio 20.8 RATIO (10-20); Bilirubin, Direct 0.34 mg/dL (0.00-0.30); Calcium,Total 8.2 mg/dL (8.5-10.1); Chloride 110 mmol/L (98-107); Creatinine, Serum 1.01 mg/dL (0.70-1.30); EST Glomerular Filtration Rate 82 mL/min (>60); Est Glom Filt Rate - Afr Amer 99 mL/min (>60); Estimated Creatinine Clearance 92.84 ml/min; Glucose 108 mg/dL (74-106); Magnesium 2.8 mg/dL (1.6-2.6); Phosphorus 3.4 mg/dL (2.5-4.9); Potassium 4.1 mmol/L (3.5-5.1); Protein, Total 6.4 g/dL (6.4-8.2); Sodium Level 141 mmol/L (136-145)
--- NOTE | 2023-01-15 08:22 | PCM.PN.HOSP ---
Reason for Visit Reason for Visit: Diagnoses Heart failure, unspecified (01/13/23) Chest pain, unspecified (01/13/23) Subjective Subjective Patient seen clinical condition improved plan is for patient to be assessed for possible discharge Objective Data Objective Data Vital Signs: Vital Signs Temp Pulse Resp BP Pulse Ox O2 Del Method O2 Flow Rate 98.1 F 102 H 18 91/65 94 Room Air 2 01/15/23 03:35 01/15/23 03:35 01/15/23 03:35 01/15/23 03:35 01/15/23 03:35 01/15/23 03:35 01/14/23 16:45 Oxygen Flow Rate (L/min) 2 Oxygen Delivery Method Room Air Weight: 95.2 kg Body Mass Index (BMI) 28.4 Intake & Output: Intake and Output for Last 24 Hours 01/13/23 01/14/23 01/15/23 23:59 23:59 23:59 Intake Total 1999 Balance 1999 Lab / Micro Data 01/15/23 06:32 01/15/23 06:32 Labs: Laboratory Results - last 24 hr 01/14/23 06:03: Hemoglobin A1c 4.9 01/15/23 06:32: WBC 10.7, RBC 4.02 L, Hgb 13.2, Hct 39.4 L, MCV 98.0 H, MCH 32.8 H, MCHC 33.5, RDW Std Deviation 45.7 H, RDW Coeff of Dona 12.8, Plt Count 272, MPV 10.3, Immature Gran % (Auto) 0.300, Neut % (Auto) 58.4, Lymph % (Auto) 22.3, [place] % (Auto) 10.5 H, Eos % (Auto) 7.7 H, Baso % (Auto) 0.8, Absolute Neuts (auto) 6.2, Absolute Lymphs (auto) 2.38, Nucleated RBC % 0, Sodium 141, Potassium 4.1, Chloride 110 H, Carbon Dioxide 25.0, Anion Gap 6, BUN 21 H, Creatinine 1.01, Estim Creat Clear Calc 92.84, Est GFR (MDRD) Af Amer 99, Est GFR (MDRD) Non-Af 82, BUN/Creatinine Ratio 20.8 H, Glucose 108 H, Calcium 8.2 L, Phosphorus 3.4, Magnesium 2.8 H, Total Bilirubin 2.20 H, Direct Bilirubin 0.34 H, AST 15, ALT 26, Alkaline Phosphatase 78, Total Protein 6.4, Albumin 3.4, Globulin 3.0 Radiography Diagnostic Testing: Radiology Impression Echocardiogram 01/13/23 20:43 Interpretation Summary The left ventricular ejection fraction is 10 %. There is severe global hypokinesis of the left ventricle. Mild (1+) eccentric mitral valve insufficiency. The left atrium is moderately enlarged. Severely dilated left ventricle. Contrast injection was performed. Ordering Physician: Álvaro Crisostomo Performed By: Levon Ward RCS Physical Exam Narrative GENERAL: cooperative HEENT: Atraumatic; normocephalic EYES; Anicteric, Normal Conjunctiva NECK; supple, normal thyroid, RESPIRATORY: Diminished to auscultation CARDIOVASCULAR: Regular S1 S2, GI: soft, normoactive bowel sounds, : No Renal angle tenderness; EXTREMITIES: No edema, no clubbing, MUSCULOSKELETAL: no muscle wasting NEURO: Awake; no lateralizing signs. SKIN: No Rash PSYCH; Flat affect Assessment & Plan Assessment/Plan (1) Chest pain: QUALIFIERS: Chest pain type: unspecified Qualified Code(s): R07.9 - Chest pain, unspecified PLAN: Plan Patient is a 52-year-old gentleman who presented to the emergency department with chest pain and shortness of breath 1. Chest pain ? Patient admitted to a monitored bed with plans to rule out [place] with serial cardiac enzymes, patient to undergo a nuclear stress test if LA is ruled out 2. Acute congestive heart failure with reduced ejection fraction ? CTA of the chest obtained on admission was negative for pulmonary embolism however did show cardiomegaly and probable pulmonary edema and pleural effusion with compressive atelectasis in both lower lobes. As part of his management 2D echo ordered patient started on diuretic therapy with furosemide ? Patient 2D echo demonstrated EF of 10% consult placed to cardiology Case discussed with Dr. Watts, patient to undergo left heart catheterization ? Patient left heart catheterization did not demonstrate him hemodynamically significant obstructive lesion. Do suspect possible viral myocarditis. Patient to be discharged on Farxiga as well as carvedilol. With plans for patient to follow-up with information services assistant 3. DVT prophylaxis - On enoxaparin Time spent in the patient's overall evaluation,decision-making process, review of diagnostic data, adjustment of management, discussion with other providers, nursing nursing and ancillary staff involved in patient's care documentation, 35 Charges/Coding Visit Charges Inpatient E&M: 31700 Subs Hosp L2
[2023-01-15 08:33] VITALS: BP 95/76; PULSE 108; RESP 16; TEMP 36.4; O2SAT 92
[2023-01-15 09:13] VITALS: O2SAT 96
[2023-01-15] MEDS: Enoxaparin 40 MG/0.4 ML Syringe SC (10:06)
[2023-01-15] MEDS: Carvedilol 3.125 MG TABLET PO (10:06)
[2023-01-15] MEDS: Furosemide 40 MG Tablet PO (10:06)
--- NOTE | 2023-01-15 11:06 | DS.PCM_ITS ---
Providers Date of Admission: 01/13/23 Date of Discharge: 01/15/23 Primary Care Physician: Dr. Brendan Granado, Consultations 01/14/23 11:39 Consult: Cardiology Routine Consulting Provider: Don Watts Reason for Consult: cardiomyopathy EMERGENT Consult: No MD Notified: Yes Date Notified: 01/14/23 Time Notified: 11:40 Method of Notification: Verbal Reason For Visit: CHEST PAIN, SUSPECTED HEART FAILURE Diagnosis Discharge Diagnosis (1) Chest pain: Status: Acute Code(s): R07.9 - Chest pain, unspecified Qualifiers: Chest pain type: unspecified Qualified Code(s): R07.9 - Chest pain, unspecified Plan Patient is a 52-year-old gentleman who presented to the emergency department with chest pain and shortness of breath 1. Chest pain ? Patient admitted to a monitored bed with plans to rule out [place] with serial cardiac enzymes, patient to undergo a nuclear stress test if TX is ruled out 2. Acute congestive heart failure with reduced ejection fraction ? CTA of the chest obtained on admission was negative for pulmonary embolism however did show cardiomegaly and probable pulmonary edema and pleural effusion with compressive atelectasis in both lower lobes. As part of his management 2D echo ordered patient started on diuretic therapy with furosemide ? Patient 2D echo demonstrated EF of 10% consult placed to cardiology Case discussed with Dr. Watts, patient to undergo left heart catheterization ? Patient left heart catheterization did not demonstrate him hemodynamically significant obstructive lesion. Do suspect possible viral myocarditis. Patient to be discharged on Farxiga as well as carvedilol. With plans for patient to follow-up with headlight adjuster 3. DVT prophylaxis - On enoxaparin Time spent in the patient's overall evaluation,decision-making process, review of diagnostic data, adjustment of management, discussion with other providers, nursing nursing and ancillary staff involved in patient's care documentation, 35 Medications at Discharge Home Medications carvedilol 3.125 mg tablet 3.125 mg PO BID #60 tabs 01/15/23 dapagliflozin propanediol 10 mg tablet (Farxiga) 10 mg PO DAILY #30 tabs 01/15/23 furosemide 40 mg tablet 40 mg PO DAILY #30 tabs 01/15/23 lisinopril 2.5 mg tablet 2.5 mg PO DAILY #30 tabs 01/15/23 Hospital Course Procedures 2-D Echocardiogram and Cardiac catheterization Summary of Care Provided Minutes Spent on Discharge: 35 Physical Exam Narrative GENERAL: cooperative HEENT: Atraumatic; normocephalic EYES; Anicteric, Normal Conjunctiva NECK; supple, normal thyroid, RESPIRATORY: Diminished to auscultation CARDIOVASCULAR: Regular S1 S2, GI: soft, normoactive bowel sounds, : No Renal angle tenderness; EXTREMITIES: No edema, no clubbing, MUSCULOSKELETAL: no muscle wasting NEURO: Awake; no lateralizing signs. SKIN: No Rash PSYCH; Flat affect Weight / BMI Weight Weight: 95.2 kg Body Mass Index (BMI) 28.4 ABG / Lab / Microbiology Data 01/15/23 06:32 01/15/23 06:32 Laboratory: Laboratory Results - last 24 hr 01/15/23 06:32: WBC 10.7, RBC 4.02 L, Hgb 13.2, Hct 39.4 L, MCV 98.0 H, MCH 32.8 H, MCHC 33.5, RDW Std Deviation 45.7 H, RDW Coeff of Dona 12.8, Plt Count 272, MPV 10.3, Immature Gran % (Auto) 0.300, Neut % (Auto) 58.4, Lymph % (Auto) 22.3, [place] % (Auto) 10.5 H, Eos % (Auto) 7.7 H, Baso % (Auto) 0.8, Absolute Neuts (auto) 6.2, Absolute Lymphs (auto) 2.38, Nucleated RBC % 0, Sodium 141, Pot assium 4.1, Chloride 110 H, Carbon Dioxide 25.0, Anion Gap 6, BUN 21 H, Creatinine 1.01, Estim Creat Clear Calc 92.84, Est GFR (MDRD) Af Amer 99, Est GFR (MDRD) Non-Af 82, BUN/Creatinine Ratio 20.8 H, Glucose 108 H, Calcium 8.2 L, Phosphorus 3.4, Magnesium 2.8 H, Total Bilirubin 2.20 H, Direct Bilirubin 0.34 H , AST 15, ALT 26, Alkaline Phosphatase 78, Total Protein 6.4, Albumin 3.4, Globulin 3.0 Radiography Diagnostic Testing: Radiology Impression Echocardiogram 01/13/23 20:43 Interpretation Summary The left ventricular ejection fraction is 10 %. There is severe global hypokinesis of the left ventricle. Mild (1+) eccentric mitral valve insufficiency. The left atrium is moderately enlarged. Severely dilated left ventricle. Contrast injection was performed. Ordering Physician: Álvaro Crisostomo Performed By: Levon Ward RCS D/C Instructions Discharge Diet: 8 Cup Fluid Restriction and 2000 mg Sodium Diet Discharge Activity: Return to Normal Activity Call your doctor if you observe: Fever of 101 or Higher, Shortness of breath, Fainting spells and Chest pain Meaningful Use Info Meaningful Use Diagnoses (Choose all that apply): CHF CHF LAURIE/ARB ordered at discharge?: Yes Documented LVEF (%): 10 Discharge Plan Admission Admit Date/Time: 01/13/23 19:29 Attending Provider: Shady Harvey Primary Care Provider: Brendan Granado Consulting Providers: Anastacio Cole; Don Watts Discharge Orders/Prescriptions Prescriptions: New furosemide 40 mg Tablet 40 mg PO DAILY Qty: 30 0RF carvedilol 3.125 mg Tablet 3.125 mg PO BID Qty: 60 0RF lisinopril 2.5 mg Tablet 2.5 mg PO DAILY Qty: 30 0RF Farxiga 10 mg tablet 10 mg PO DAILY Qty: 30 0RF Referrals / Follow Up: Brendan Granado DO [Primary Care Provider] - Within 1 Week Don Watts MD [Med Staff - Active Staff] - Within 2 Weeks Disposition Disposition (needs filled in before D/C Order can be placed): Home, Self Care Charges/Coding Visit Charges Inpatient E&M: 49117 Disch Hosp >30min
--- NOTE | 2023-01-15 14:01 | CASEMGMT ---
Addendum entered by Josiah Venegas 01/15/23 14:20: Dr Harvey made aware of cost of medication. He states it is recommended from cardiology and it definitely helps, but pt can do without it for now. Pt to f/u with cardiology. Original Note: BILL HUFF NOTE: Pt being discharged home. Rx for Farxiga has been e-scribed to [facility] retail pharmacy. Per Apr in the pharmacy, cost is $647. BILL HUFF to room . Pt and made aware of cost of medication and interested in completing application to see if he qualifies for financial assistance. Pt provided w/[employer] application. Pt completed his portion of the form and BILL HUFF faxed this and remainder of the application to [employer] at this time. Pt and made aware it can take up to 3-5 days to determination of assistance. They stated, if pt does not qualify for assistance, they can afford to purchase this [id number] for the initial 30 days prescription and will f/u with immigration investigator. Pt and given original copy of application and contact info to [employer]. Pt and also provided w/Farxiga savings card information that may provide up to $128 off of 30-day supply, if pt does not qualify for better savings through on-line application. Mamie MEEHAN RN, CM
[2023-01-15 15:00] VITALS: BP 100/72; PULSE 110; RESP 14; TEMP 36.7; O2SAT 96
--- NOTE | 2023-01-17 11:42 | CASEMGMT ---
RN CM Follow-up: This RN received a call from pt stating he had recieved an email stating [employer] needed the prescription for his application. This RN CM contacted [employer] and per their industrial relations representative, a faxed prescription takes 3-4 days to get attached to the online application. Pt will receive an additional email next week if this is not attached to his application. A fax will also be sent to this RN CM if the script is not attached per their process. This RN CM phoned pt to inform him of the above. Identifying voicemail received and message left explaining the above and requested pt contact this RN CM if he does receive notification next week that script is still needed. Guanakito Green RN CM
--- NOTE | 2023-01-22 10:27 | CASEMGMT ---
BILL HUFF Follow-up: Call placed to [employer]. Per automated line, pt has been approved through 01/16/2024 with re-enrollment being able to start on 10/18/2023. Spoke with [employer] sales representative graphic art Shady who confirmed medication is being shipped to pt's home. States an email and text will be sent to the patient with shipping and tracking information when available. Call placed to pt and informed of the above. Questions answered. Pt states he will contact this RN CM with any further questions as needed. Guanakito Green RN CM
--- NOTE | 2023-02-07 13:33 | CASEMGMT ---
BILL CM: Call received from pt who states his refill prescription was sent to [facility] and not to [employer] for his approved free supply from the company. This BILL HUFF contacted [facility] and notified Rosemarie of need for script to be faxed to [employer]. . Rosemarie to fax script which will include 90 day supply and 3 refills. This RN CM contacted pt and notified of the same. Reminded that will take 3-5 days for script to get matched with his application so it may be the end of next week for this to occur. Pt has this RN CM contact information and will call if does not receive supply. Guanakito Green RN CM
--- NOTE | 2023-02-20 16:37 | CASEMGMT ---
BILL HUFF: Pt called and stated that he had not received his next bottle of Farxiga. This RN CM contacted [employer] and spoke with service representative Tigre who states they did receive the new prescription and he was sending it to their pharmacy to process and ship to the pt's home. Pt should receive it in 10-14 days but he was placing a request to expedite the request. Tigre also states pt will be on autofill going forward. There will be a date on the bottle that will indicate when the next shipment will be sent and pt will receive 10-14 days after that date. Pt can call if he does not receive after that time. This RN DARIA contacted pt and explained all of the above. Pt expressed understanding and did not voice any additional concerns. Guanakito Green RN CM
== END 2023-01-15 16:04 | disposition home or self-care (01) | DRG 287 ==
LOC: ED 19:36 → PCU 20:18
PROVIDERS: Hospitalist; Nurse Practitioner; Admitting Provider Family Medicine; Emergency Provider Emergency Medicine; PCP Family Medicine; Visit Provider Internal Medicine
DX: I50.21 Acute systolic (congestive) heart failure (principal); I42.0 Dilated cardiomyopathy
CPT/HCPCS: 36415; 71045; 71275; 78452; 80048; 80061; 80076; 83036; 83735; 83880; 84100; 84443; 84484; 85025; 85027; 85379; 85610; 93005; 93017; 93306; 93454; 99152; 99153; 99283; A9500; J7040; Q9957; Q9967; A4216; C1769; C1894; C8929; J1940; J2785

== ENCOUNTER → 2023-05-01 | Outpatient (CLI) | payer SELFPAY, OTHER ==
--- NOTE | 2023-05-01 09:31 | ECHOLC_ITS ---
Reason For Study: CMP Procedure This was a limited 2D transthoracic echocardiogram. Contrast injection was performed. Exam performed in department. Left Ventricle Severely dilated left ventricle. The estimated ejection fraction is 20 %. Stage 1 diastolic dysfunction. There is severe global hypokinesis of the left ventricle. Right Ventricle Normal RV size. Normal systolic function. Atria Normal left atrium. Normal right atrium. Mitral Valve Normal mitral valve. Tricuspid Valve Normal tricuspid valve. Aortic Valve Normal aortic valve. Trisinus/trileaflet aortic valve. Pulmonic Valve Normal pulmonic valve. Great Vessels Normal aortic root. The pulmonary artery is normal size. Normal inferior vena cava. Pericardium/Pleural No pericardial effusion. Medication 22 gauge I.V. with prn adaptor inserted into right arm. Diluted definity 3ml given slow IV push to enhance endocardial definition. MMode/2D Measurements & Calculations LVIDd: 7.0 cm IVSd: 0.92 cm LA dimension: 4.9 cm LVIDs: 6.5 cm LVPWd: 0.93 cm FS: 6.8 % LVAd ap4: 54.8 cm2 SV(MOD-sp4): 53.1 ml SV(sp4-el): 53.8 ml LVLd ap4: 9.5 cm EDV(MOD-sp4): 260.5 ml EDV(sp4-el): 269.5 ml LVAs ap4: 47.0 cm2 LVLs ap4: 8.7 cm ESV(MOD-sp4): 207.4 ml ESV(sp4-el): 215.7 ml EF(MOD-sp4): 20.4 % EF(sp4-el): 20.0 % Time Measurements MV dec time: 0.22 sec Doppler Measurements & Calculations MV E max charlie: 50.4 cm/sec MV A max charlie: 65.5 cm/sec MV dec slope: 233.0 cm/sec2 MV E/A: 0.77 ECHO/Echo Limited w/Contrast Interpretation Summary The estimated ejection fraction is 20 %. Severely dilated left ventricle. Stage 1 diastolic dysfunction. Structurally normal valves. Ordering Physician: Tressa Crenshaw Referring Physician: Tressa Crenshaw Performed By: Levon Ward RCS
--- OUTSIDE RECORDS SUMMARY | 2023-05-01 09:54 | XMS RPT_ITS | CCD ---
Author Name Unknown Address [address], [place] [place] [address] Organization [facility] Care Team Providers Care Pumping Supervisor Name Role Phone ELYSIA TORRE Attending Unavailable YELITZA, ELYSIA Admitting Unavailable DR SIENNA TORRES MD Consulting Unavailable TORREELYSIA Primary Care Unavailable PROVIDER, UNKNOWN Consulting Unavailable YELITZA, ELYSIA Admitting Unavailable TORRE, ELYSIA Primary Care Unavailable DR SIENNA TORRES MD Consulting Unavailable ELYSIA TORRE Attending Unavailable PROVIDER, UNKNOWN Consulting Unavailable ELYSIA TORRE Attending Unavailable YELITZA, ELYSIA Admitting Unavailable DR SIENNA TORRES MD Consulting Unavailable TORRE, ELYSIA Primary Care Unavailable PROVIDER, UNKNOWN Consulting Unavailable TORREELYSIA Attending Unavailable TORRE, ELYSIA Admitting Unavailable MELISSADR SIENNA PAZ MD Consulting Unavailable TORRE, ELYSIA Primary Care Unavailable PROVIDER, UNKNOWN Consulting Unavailable Problems Problem Classification Problem Date Documented Date Episodic/Chronic Abdominal hernia (3 sources) Diaphragmatic hernia without obstruction or gangrene; Translations: [Diaphragmatic hernia without obstruction or gangrene] Onset: 01-03-2021 Episodic Biliary tract disease (3 sources) Calculus of gallbladder without cholecystitis without obstruction; Translations: [Calculus of gallbladder without cholecystitis without obstruction] Onset: 03-19-2021 Episodic Esophageal disorders (3 sources) Gastro-esophageal reflux disease without esophagitis; Translations: [Gastro-esophageal reflux disease without esophagitis] Onset: 01-03-2021 Chronic Gastritis and duodenitis (1 source) Gastritis, unspecified, without bleeding; Translations: [Gastritis, unspecified, without bleeding] Onset: 01-03-2021 Episodic Other nutritional; endocrine; and metabolic disorders (1 source) Overweight; Translations: [Overweight] Onset: 01-03-2021 Episodic Results Test Name Value Interpretation Reference Range Facil ity Encounters Encounter Date Encounter Type Care Provider Facility Start: 03-19-2021 End: 03-19-2021 ambulatory [facility] Start: 03-14-2021 End: 03-14-2021 ambulatory [facility] Start: 01-08-2021 End: 01-08-2021 ambulatory [facility] Start: 01-03-2021 End: 01-03-2021 ambulatory [facility] Payers Date Payer Category Payer Unknown [id number] 2.16.84 [id number] 1970 Unknown [id number] 2.16.84 [id number] 1970 Unknown [id number] 2.16.84 [id number] 1970 Unknown [id number] 2.16.84 [id number] Unknown 136 Summary Purpose Family History No Family History Records FoundNo Family History Records FoundNo Family History Records FoundNo Family History Records FoundNo Family History Records Found Advance Directives No Advanced Directives Records FoundNo Advanced Directives Records FoundNo Advanced Directives Records FoundNo Advanced Directives Records FoundNo Advanced Directives Records Found Additional Source Comments (unrecognized sect ion and content) No Status Records FoundNo Status Records FoundNo Status Records FoundNo Status Records FoundNo Status Records Found INFORMATION SOURCE (unrecogn ized section and content) DATE CREATED AUTHOR AUTHOR'S ORGANIZ ATION 11/07/2018 [facility] DATE CREATED AUTHOR AUTHOR'S ORGANIZ ATION 12/18/2018 [facility] DATE CREATED AUTHOR AUTHOR'S ORGANIZ ATION 03/22/2021 [facility] DATE CREATED AUTHOR AUTHOR'S ORGANIZ ATION 04/29/2023 [facility] FOR RECORDS PERTAINING TO PATIENTS WHO ARE OR HAVE BEEN ENROLLED IN A CHEMICAL DEPENDENCY/SUBSTANCEABUSE PROGRAM, SOME INFORMATION MAY BE OMITTED. This clinical summary was aggregated from multiple sources. Caution should be exercised in using it in the provision of clinical care. This summary normalizes information from multiple sources, and as a consequence, information in this document may materially change the coding, format and clinical context of patient data. In addition, data may be omitted in some cases. CLINICAL DECISIONS SHOULD BE BASED ON THE PRIMARY CLINICAL RECORDS. [facility]. provides no warranty or guarantee of the accuracy or completeness of information in this document.
== END | disposition home or self-care (01) ==
PROVIDERS: PCP Family Medicine; Referring Provider Nurse Practitioner Gerontology; Visit Provider Nurse Practitioner Gerontology
DX: I49.3 Ventricular premature depolarization (principal); I50.1 Left ventricular failure, unspecified
CPT/HCPCS: 93225; 93226; 93308; Q9957; A4216; C8924